=== PATIENT | female | born 1955 | race Caucasian/White ===

== ENCOUNTER 2019-04-29 14:14 | Outpatient (CLI) | payer OTHER, SELFPAY ==
--- NOTE | ~2019-04-29 | MM_ITS ---
EXAMINATION: MM screening joy BI w monik HISTORY: Screening mammogram TECHNIQUE: Craniocaudal and mediolateral oblique 3-D tomosynthesis images were obtained and synthetic 2-D images were generated. CAD analysis was submitted and interpreted. COMPARISON: No prior mammogram is available for comparison at this institution. BREAST PARENCHYMAL COMPOSITION: There are scattered areas of fibroglandular density. FINDINGS: RIGHT BREAST: A mass is present in the posterior third of the upper outer quadrant of the breast 9 cm from the nipple (CC slice: 30/65, MLO slice: /71). LEFT BREAST: There is no evidence of suspicious mass, calcification, or architectural distortion to s uggest malignancy. IMPRESSION: 1. Right breast mass. 2. Additional mammographic views and possible breast ultrasound are recommended. BI-RADS Category 0: Incomplete: Needs additional imaging evaluation. Reviewed, dictated and finalized at location A. 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 Right breast mass. 2. Additional mammographic views and possible breast ultrasound are recommended . BI-RADS Category 0: Incomplete: Needs additional imaging evaluation.
== END 2019-04-29 14:15 | disposition home or self-care (01) ==
PROVIDERS: PCP Physician Assistant; Visit Provider Physician Assistant
DX: Z12.31 Encounter for screening mammogram for malignant neoplasm of breast (principal); R92.8 Other abnormal and inconclusive findings on diagnostic imaging of breast
CPT/HCPCS: 77063; 77067

== ENCOUNTER 2019-06-09 12:29 | Outpatient (CLI) | payer OTHER, SELFPAY ==
--- NOTE | ~2019-06-09 | MMUS_ITS ---
EXAMINATION: MM diagnostic mammo unilat RT, US breast RT limited HISTORY: Follow-up right breast mass TECHNIQUE: Additional 3-D tomosynthesis images of the right breast were performed and synthetic 2-D i mages were generated. CAD analysis was submitted and interpreted. High resolution right breast ultras ound was performed. COMPARISON: 04/29/2019 FINDINGS: MAMMOGRAPHIC FINDINGS: Breast composed of scattered areas of fibroglandular density. There is a spiculated mass in the upper outer quadrant of the right breast, middle third with associated calcifications. This is partially o bscured by fibroglandular tissue. ULTRASOUND: Right breast ultrasound: At 10:00, 3 cm from the nipple, there is an irregular shaped hypoechoic mass with posterior shadowing measuring 10 x 8 x 6 mm. No significant internal vascularity identified. IMPRESSION: 1. Spiculated right breast mass, upper outer quadrant at 10:00 position by ultrasound, 3 cm from the nipple. Ultrasound-guided right breast biopsy recommended. 2. BI-RADS category 5: Highly suspicious abnormality. Reviewed, dictated and finalized at location A. IMPRESSION: 1. Spiculated right breast mass, upper outer quadrant at 10:00 position by ultr asound, 3 cm from the nipple. Ultrasound-guided right breast biopsy recommended . 2. BI-RADS category 5: Highly suspicious abnormality.
== END 2019-06-09 12:30 | disposition home or self-care (01) ==
LOC: ANHIMG 12:32
PROVIDERS: PCP Physician Assistant; Visit Provider Physician Assistant
DX: Z12.31 Encounter for screening mammogram for malignant neoplasm of breast (principal); R92.8 Other abnormal and inconclusive findings on diagnostic imaging of breast
CPT/HCPCS: 76642; 77065

== ENCOUNTER 2019-06-30 09:02 | Outpatient (CLI) | payer OTHER, SELFPAY ==
--- NOTE | ~2019-06-30 | MM_ITS ---
MM post biopsy invasive RT DATE: 06/30/2019 10:24 INDICATION: Ultrasound-guided biopsy of 10:00 right breast mass TECHNIQUE: Digital ML and cc views of right breast following ultrasound-guided biopsy of 10:00 breast mass COMPARISON: 06/30/2019 ultrasound guided right breast biopsy FINDINGS: A biopsy marker is present posteriorly in the upper outer quadrant of the right breast in a n area of abnormal density and architectural distortion. There is some expected associated mild subcu taneous emphysema. IMPRESSION: Ultrasound-guided biopsy of 10:00 right breast mass Reviewed, dictated and finalized at Location A. Reviewed, dictated and finalized at location A.
--- NOTE | ~2019-06-30 | US_ITS ---
EXAMINATION: US GUIDED NEEDLE BIOPSY DATE: 06/30/2019 11:26 CDT INDICATION: 10:00 right breast mass TECHNIQUE AND FINDINGS: The risks and potential benefits of the procedure were discussed with the patient, and written inform ed consent was obtained. Timeout procedure was performed. After sterile preparation of the right carol st, 1% lidocaine was utilized for local anesthesia. A 14G spring-loaded biopsy gun needle was advanced to the edge of the region of interest from a later al approach utilizing sonographic guidance. A total of 4 tissue core samples were obtained through t he lesion. An Inrad tissue marker clip was then placed at the biopsy site. Hemostasis was achieved. A sterile bandage was applied. The patient tolerated procedure well and there was no evidence of immediate complication. The patien t was given verbal instructions prior to departing from the department. A two view mammogram was perf ormed to document tissue marker clip placement. The tissue samples were submitted to surgical patholo gy for histologic analysis. IMPRESSION: 1. Successful ultrasound guided biopsy of right 10:00 breast mass with biopsy marker placement. Plea se refer to pathology report for histologic analysis. Reviewed, dictated and finalized at Location A. Reviewed, dictated and finalized at location A. IMPRESSION: 1. Successful ultrasound guided biopsy of right 10:00 breast mass with biopsy marker placement. Please refer to pathology report for histologic analysis.
== END 2019-06-30 09:03 | disposition home or self-care (01) ==
PROVIDERS: PCP Physician Assistant; Visit Provider Surgery
DX: R92.8 Other abnormal and inconclusive findings on diagnostic imaging of breast (principal); C50.911 Malignant neoplasm of unspecified site of right female breast
CPT/HCPCS: 19083; 88305; 88342; A4648

== ENCOUNTER 2019-08-04 14:02 | Outpatient (CLI) | payer OTHER, SELFPAY ==
--- NOTE | 2019-08-04 14:05 | ECG_ITS ---
Measurements Intervals [place] Rate: 63 P: 56 MA: 150 QRS: 13 QRSD: 98 T: 14 QT: 417 QTc: 429 Interpretive Statements SINUS RHYTHM BORDERLINE T WAVE ABNORMALITY- INFERIOR LEADS BASELINE ARTIFACT- V6 BORDERLINE ECG Electronically Signed On 08-04-2019 14:29:54 CDT by Eloy Osei D.O.
[2019-08-04 14:49] LABS: Blood Urea Nitrogen 20 mg/dL (7-17); Calcium 8.9 mg/dL (8.4-10.2); Carbon Dioxide 29 mmol/L (22-30); Chloride 106 mmol/L (98-107); Estimated Glomerular Filt Rate > 60; Glucose 117 mg/dL (65-105); Potassium 4.1 mmol/L (3.4-5.0); Sodium 141 mmol/L (137-145)
== END 2019-08-04 14:03 | disposition home or self-care (01) ==
LOC: ANHSURGERY 14:05
PROVIDERS: Anesthesiology; PCP Physician Assistant; Visit Provider Surgery
DX: Z01.818 Encounter for other preprocedural examination (principal); I10 Essential (primary) hypertension; E78.5 Hyperlipidemia, unspecified; E11.9 Type 2 diabetes mellitus without complications
CPT/HCPCS: 36415; 80048; 93005

== ENCOUNTER 2019-08-05 05:46 | Outpatient (CLI) | payer OTHER, SELFPAY ==
[2019-08-05 16:38] LABS: SARS-CoV-2 RNA PCR Negative
== END 2019-08-05 05:47 | disposition home or self-care (01) ==
LOC: ANHCOVIDDT 05:47
PROVIDERS: PCP Physician Assistant; Visit Provider Surgery
DX: Z01.818 Encounter for other preprocedural examination (principal); Z11.59 Encounter for screening for other viral diseases
CPT/HCPCS: 87635; U0003

== ENCOUNTER 2019-08-07 00:35 | Day surgery (SDC) | payer OTHER, SELFPAY ==
[2019-08-04 09:33] VITALS: BMI 31.1
[2019-08-07] VITALS (10 sets, daily range): BP systolic 105–149; BP diastolic 58–86; PULSE 57–75; RESP 11–20; TEMP 36.4; O2SAT 92–98
--- NOTE | ~2019-08-07 | MM_ITS ---
MM surgical specimen RT DATE: 08/07/2019 10:38 INDICATION: Surgical excision of right breast mass] biopsy marker TECHNIQUE: Single noncompression digital mammographic exposure of surgical soft tissue specimen COMPARISON: 08/07/2019 mammographic localization images of right breast FINDINGS: The biopsy marker and adjacent soft tissue mass are present within the surgical soft tissue specimen. IMPRESSION: Successful surgical excision of mass and biopsy marker Reviewed, dictated and finalized at Location A. Reviewed, dictated and finalized at location A.
--- NOTE | ~2019-08-07 | NM_ITS ---
NM sentinel node inject only DATE: 08/07/2019 09:23 INDICATION: Preoperative injections prior to breast surgery and surgical sentinel node localization TECHNIQUE: The purpose of the procedure, technique and potential locations were discussed with the heather sadler. The patient verbalized understanding and gave consent. 4 equally divided doses totaling cumulative 1.067 mCi 99M technetium lymphoseek were injected at 12:0 0, 3:00, 6:00 and 9:00 subareolar locations subcutaneously. The patient tolerated the procedure well, without complaint or apparent complication. IMPRESSION: Preoperative subcutaneous 1.067 mCi 99M technetium lymphoseek periareolar injections for sentinel localization operatively Reviewed, dictated and finalized at Location A. Reviewed, dictated and finalized at location A. IMPRESSION: Preoperative subcutaneous 1.067 mCi 99M technetium lymphoseek aneta areolar injections for sentinel localization operatively
--- NOTE | ~2019-08-07 | MM_ITS ---
MM needle loc RT DATE: 08/07/2019 08:25 INDICATION: Preoperative wire localization of right breast mass/biopsy marker TECHNIQUE: The purpose of the procedure, technique and potential complications were discussed with e patient. The patient verbalized understanding and gave consent. Timeout procedure confirmed proper patient, procedure and breast. The right breast was placed in compression in craniocaudal position with biopsy grid apparatus over t he upper breast. Using alphabet and numerical coordinates on the biopsy grid to localize the posterio r upper outer quadrant mass and biopsy marker, an appropriate site was identified for placement of [facility] needle. The skin was prepared with sterile Betadine solution. 1% Xylocaine local anesthetic was adm inistered to the skin. A 5 cm [place] Mammalok needle was introduced into the breast. Craniocaudal and mediolateral exposures confirmed proper position and depth of the needle. The wire was advanced throu gh the needle tip. Final craniocaudal and lateral images were obtained to confirm proper placement of the wire. The patient was very cooperative and tolerated the procedure well, without any apparent complication. IMPRESSION: Preoperative mammographically guided wire localization of right upper outer quadrant [address] mass Reviewed, dictated and finalized at Location A. Reviewed, dictated and finalized at location A. IMPRESSION: Preoperative mammographically guided wire localization of right upp er outer quadrant breast mass
[2019-08-07 07:07] LABS: Glucose Point of Care 107 (65-105)
--- NOTE | 2019-08-07 07:17 | PM.SD ---
Same Day Admit/Disch: HPI History of Present Illness Chief complaint: Right Breast Lobular Ca Narrative: Suzy Fontanez is a 63 year old female who presented with abnormal breast imaging. She had a spiculated mass in the upper-outer quadrant of the right breast. She underwent image guided biopsy which showed well-differentiated invasive lobular carcinoma. After discussion, she is taken to surgery now for wire localization followed by right breast lumpectomy and right axillary sentinel lymph node biopsy. [facility] Past Medical History Medical History Diabetes mellitus Hyperlipidemia Hypertension Surgical History Surgical History History of arthroplasty of finger of right hand History of X 2 Family History Family History Unknown Diabetes mellitus Heart disease Cancer Social History Social History Smoking status: Never smoker Alcohol intake: former Same Day Admit/Disch: Med Pre-admit Medications Home Medications Medication Instructions Recorded Confirmed Type losartan 50 mg tablet 50 mg PO DAILY 06/16/19 08/07/19 History lovastatin 20 mg tablet 20 mg PO DAILY 06/16/19 08/07/19 History metformin 500 mg tablet 500 mg PO BID 06/16/19 08/07/19 History cyanocobalamin (vitamin B-12) 1,000 mcg PO DAILY 08/04/19 08/07/19 History [Vitamin B-12] hydrocodone-acetaminophen 1 - 2 tablet PO Q6H PRN #7 tablet 08/07/19 Rx ketorolac 10 mg PO Q6H 4 Days #16 tablet 08/07/19 Rx Exam Const: General: comfortable, no acute distress, alert and awake HENMT: Head: normocephalic and atraumatic Mouth: Yes Normal oral and palatal mucosa present Eyes: Conjunctivae: conjunctivae normal Pupils: Equal, round and reactive pupils present EOM: EOMs intact bilaterally Neck: Neck: normal visual inspection, no lymphadenopathy and nontender Chest: Breast/axilla inspection: normal inspection of the breasts and normal inspection of the axillae Breast/axilla palpation: normal palpation of the breasts and normal palpation of the axillae Resp: Effort & Inspection: normal respiratory effort Auscultation: clear to auscultation bilaterally Cardio: Rate: regular rate Rhythm: regular rhythm Heart sounds: no gallops, no murmurs and no rubs GI: Inspection: non-distended GI Palp: Yes Soft to palpation, No Tenderness to palpation present (GI), No Hepatomegaly present and No Splenomegaly present Skin: Lesions: no lesions Rashes: no rashes Neuro: General: no focal motor deficits and CN's II-XI intact bilaterally Cranial nerves: Yes Equal, round and reactive pupils present, Yes Bilaterally intact EOM present, Yes facial symmetry and Yes Midline tongue present Speech: normal speech Motor exam (neuro): 5/5 motor strength present throughout and Motor abnormalities not present Extrem: General: no clubbing, cyanosis or edema and edema Psych: Affect: normal affect Thought process: Normal thought process present Insight: Good insight present (Psych) DS: Data Data Completed and Pending Labs on day of discharge: Labs from last 24 hours 08/07/19 07:02 POC Capillary Glucose 107 DS: Summary Time Spent with Patient Time attestation: Total time spent providing and/or coordinating discharge services: DS: Diagnosis Admitting Diagnosis Admitting Diagnosis: Hyperlipidemia, unspecified Discharge Diagnosis (1) Invasive lobular carcinoma of breast in female: Code(s): C50.919 - Malignant neoplasm of unspecified site of unspecified female breast Status: Chronic Assessment and Plan: After discussion, the patient is taken to surgery now for wire localization of the right breast malignancy. Will proceed with right breast lumpectomy and right axillary sentinel lymph node biopsy.
[2019-08-07] MEDS: LACTATED RINGERS 1,000 ML 30 ML IV CONT ×2 (08:16→11:06)
--- NOTE | 2019-08-07 08:17 | SUR.PREOP ---
0735-PT TAKEN PER W/C TO MAMMOGRAPHY.
--- NOTE | 2019-08-07 08:49 | SUR.PREOP ---
0835-RETURNED FROM MAMMOGRAPHY AND NUCLEAR MEDICINE.
--- NOTE | 2019-08-07 09:06 | P.PNAN_ITS ---
Anes - Initial Pre Proc Eval Procedure: Operation Date: 08/07/19 09:30 Proposed Procedures p Right Breast Ultrasound And/Or Mammogram Guided Needle Localization, Right Breast Lumpectomy - Frankie Gracia MD s Right Axillary [place] Lymph Node Biopsy - Frankie Gracia MD Date/Time: 08/07/19 09:06 Surgeon: Frankie Gracia MD Pre Op Diagnosis: Right Breast Lobular Ca Patient Data Age: 63 Gender: F Height: 5 ft Weight: 70 kg Last Vital Signs Temp 36.4 C L 08/07/19 06:58 Pulse 63 08/07/19 06:58 Resp 20 08/07/19 06:58 BP 139/86 08/07/19 06:58 Pulse Ox 98 08/07/19 06:58 Allergies Allergy/AdvReac Type Severity Reaction Status Date / Time No Known Allergies Allergy Verified 08/07/19 07:57 Home Medications Medication Instructions Recorded Confirmed Type losartan 50 mg tablet 50 mg PO DAILY 06/16/19 08/07/19 History lovastatin 20 mg tablet 20 mg PO DAILY 06/16/19 08/07/19 History metformin 500 mg tablet 500 mg PO BID 06/16/19 08/07/19 History cyanocobalamin (vitamin B-12) 1,000 mcg PO DAILY 08/04/19 08/07/19 History [Vitamin B-12] hydrocodone-acetaminophen 1 - 2 tablet PO Q6H PRN #7 tablet 08/07/19 Rx ketorolac 10 mg PO Q6H 4 Days #16 tablet 08/07/19 Rx Laboratory Tests 08/07/19 07:02 POC Capillary Glucose 107 mg/dl mg/dl (65-105) Patient hx anesthesia problems: other (slow to awaken) Family hx anesthesia problems: none PMFSH Past Medical History Medical History Diabetes mellitus Hyperlipidemia Hypertension Surgical History Surgical History History of arthroplasty of finger of right hand History of X 2 Family History Family History Unknown Diabetes mellitus Heart disease Cancer Social History Social History Smoking status: Never smoker Alcohol intake: former Anes - Eval Final PreProcedure Day of Procedure 08/07/19 09:06 Patient weight: obese Heart: regular rate and rhythm Lungs: clear to auscultation Airway: Mallampati scale class II Neurological: alert and oriented Last oral intake: >/= 8 hours ASA classification: III Emergent: no Anesthetic plan: proceed Anesthesia type and monitoring: general LMA and standard monitoring Informed Consent: The patient's anesthetic plan and its attendant risks and benefits were discussed with the patient/family/POA. Questions were solicited and answers provided to the satisfaction of the patient/family/POA.
[2019-08-07] MEDS: ceFAZolin 2 GM/D5W 50 ML 2 GM/50 ML BAG IVPB (09:16)
[2019-08-07] MEDS: BUPIVACAINE/EPINEPHRINE 0.5% 30 ML VIAL 20 ML INFILTRATE (10:09)
[2019-08-07] MEDS: ISOSULFAN BLUE 1% INJ 5 ML VIAL SUB-Q (10:15)
--- NOTE | 2019-08-07 11:12 | PM.PROC ---
Procedure Note - Detailed Date of procedure: 08/07/19 Pre-op diagnosis: Right Breast Lobular Ca Invasive lobular carcinoma upper outer quadrant right breast Post-op diagnosis: same Procedure performed: Wire localization, right breast lumpectomy, right axillary sentinel lymph node biopsy Description of procedure: Patient was taken to x-ray preoperatively. Wire localization of the upper outer quadrant right breast cancer was performed. Also radioisotope injection under the right nipple was performed. She was taken back to the preoperative area. I reviewed her films. She was then taken to the operating room and induced into general anesthesia. The right breast as well as the right axilla was prepped and draped. The right arm was also prepped and draped so that it was sterile and mobile in the operating field. I injected Isosulfan Blue dye under the right nipple. Gentle breast massage was carried out for about 2 minutes. The navigator was used and an area of high isotope emission in the right axilla that would be compatible with location of sentinel nodes was marked on the skin. A hairline axillary incision was also marked on the skin. Incision was made and dissection was carried down through the subcutaneous tissue. Once we dissected into the axillary fat, the navigator was again used and an area of high isotope emission identified. Careful dissection with the cautery as well as blunt dissection was carried out. Clips were used for lymphatic stasis and vascular stasis. We eventually came to a dye stained lymph node in the axilla. It had a very high isotope emission and also had some lymphatics that were dye stained leading to this node. The node was carefully dissected and removed. It was again checked with the navigator and did have very high isotope emission. It was sent to pathology labeled right axillary sentinel lymph node 1. Then using palpation, exploration, and the navigator, I searched for other right axillary sentinel nodes. No suitable candidates were noted. Wound was then made hemostatic. It was closed in layers with 3 0 Monocryl subcutaneous and subcuticular interrupted suture. The skin was closed with running 4 0 Monocryl subcuticular skin closure. This area was quarantined with towels and we turned our attention to the right breast. The proposed incision was drawn on the skin. Local anesthetic was infiltrated into the skin and the deeper breast tissues. Incision was made and dissection was carried down through about a cm and a half of breast tissue. I then exposed the wire and pulled the wire through the skin and out the wound. From there, dissection was carried down to and around the area where the tumor was judged to reside. I really could not palpate the tumor. Trying to stay well away from the tumor itself I dissected around it attempting to take a margin of normal breast tissue in all dimensions. Eventually I dissected around the tumor and freed the end of the wire so that the specimen could be removed. The breast specimen was kept in its orientation and I used different color suture to lary the various margins for the pathologist. These were labeled appropriately. The specimen with the wire was placed on a grid and sent to mammography. Mammogram of the specimen did confirm the lesion to be present. I then exposed all 6 of the wound edges and excised additional margins for each. Each of these margin re-excision specimens was labeled appropriately and had a suture placed on its inner aspect. These were each sent to the pathologist. The wound was then made meticulously hemostatic with the cautery. The wound was closed in layers with interrupted 3 0 Monocryl suture. A running 4 0 Monocryl subcuticular skin suture was placed. Both the breast and the axillary wounds were dressed with Exofin surgical adhesive. The patient was awakened and taken to recovery in good condition. Sponge and needle counts were correct x2. Anesthesia: GETA
[2019-08-07 12:31] LABS: Glucose Point of Care 157 (65-105)
== END 2019-08-07 13:22 | disposition home or self-care (01) ==
PROVIDERS: PCP Physician Assistant; Visit Provider Surgery
PROC: (CPT 19301; principal; 2019-08-07 09:30)
PROC: (CPT 19301; 2019-08-07 09:30)
DX: C50.411 Malignant neoplasm of upper-outer quadrant of right female breast (principal); Z17.0 Estrogen receptor positive status [ER+]
CPT/HCPCS: 19301; 38525; 19281; 38792; 76098; 88307; 88342; A9270; A9520; C1713; C1769; J0131; J0690; J1100; J1170; J2250; J2405; J2704; J3010; J7030; J7120

== ENCOUNTER 2019-11-06 09:54 | Outpatient (CLI) | payer OTHER, SELFPAY ==
[2019-11-06 10:12] LABS: Basophils Percent Auto 0.6 % (0.2-1.2); Eosinophils Absolute Auto 0.3 K/mm3 (0-0.3); Eosinophils Percent Auto 6.4 % (0-4.4); Hematocrit 43.2 % (37.0-47.0); Hemoglobin 14.3 g/dL (12.0-15.0); Immature Granulocyte Absolute 0.01 K/mm3 (0.00-0.031); Immature Granulocyte Percent A 0.2 % (0-0.5); Lymphocytes Percent Auto 18.9 % (18.3-44.2); Mean Corpuscular HGB Conc 33.1 g/dl (32-36); Mean Corpuscular Hemoglobin 28.9 pg (26-34); Mean Corpuscular Volume 87.3 fl (80-100); Monocytes Absolute Auto 0.4 K/mm3 (0.1-0.6); Monocytes Percent Auto 8.3 % (2.6-8.5); Neutrophils Absolute Auto 3.5 K/mm3 (1.3-6.7); Neutrophils Percent Auto 65.6 % (45.5-73.1); Platelet Count Result 238 k/mm3 (150-375); Red Blood Count 4.95 M/mm3 (4.2-5.4); White Blood Count 5.3 K/mm3 (4.5-10.0)
[2019-11-06 10:15] LABS: Blood Urea Nitrogen 16 mg/dL (8-26); Carbon Dioxide 23 mmol/L (22-30); Chloride 104 mmol/L (98-109); Estimated Glomerular Filt Rate > 60; Glucose 155 mg/dL (70-105); Potassium 3.7 mmol/L (3.5-4.9); Sodium 143 mmol/L (138-146)
[2019-11-06 13:40] LABS: Alanine Aminotransferase 21 U/L (4-35); Albumin Level 3.9 g/dL (3.5-5.1); Alkaline Phosphatase 76 U/L (38-126); Anion Gap 9 mmol/L (8-16); Aspartate Amino Transferase 18 U/L (14-36); Bilirubin,Total 0.1 mg/dL (0.2-1.3); Blood Urea Nitrogen 17 mg/dL (7-17); Calcium 8.8 mg/dL (8.4-10.2); Carbon Dioxide 24 mmol/L (22-30); Chloride 106 mmol/L (98-107); Estimated Glomerular Filt Rate > 60; Glucose 153 mg/dL (65-105); Sodium 139 mmol/L (137-145)
== END 2019-11-06 09:55 | disposition home or self-care (01) ==
LOC: ANHLAB 09:56
PROVIDERS: PCP Physician Assistant; Visit Provider Internal Medicine Hematology & Oncology
DX: C50.411 Malignant neoplasm of upper-outer quadrant of right female breast (principal); Z17.0 Estrogen receptor positive status [ER+]
CPT/HCPCS: 36415; 80048; 80053; 85025

== ENCOUNTER 2020-01-26 12:10 | Outpatient (CLI) | payer OTHER, SELFPAY ==
[2020-01-26 12:42] LABS: Basophils Percent Auto 0.5 % (0.2-1.2); Eosinophils Absolute Auto 0.4 K/mm3 (0-0.3); Eosinophils Percent Auto 5.6 % (0-4.4); Hematocrit 44.5 % (37.0-47.0); Hemoglobin 14.3 g/dL (12.0-15.0); Immature Granulocyte Absolute 0.02 K/mm3 (0.00-0.031); Immature Granulocyte Percent A 0.3 % (0-0.5); Lymphocytes Absolute Auto 1.48 K/mm3 (0.9-3.2); Lymphocytes Percent Auto 23.7 % (18.3-44.2); Mean Corpuscular HGB Conc 32.1 g/dl (32-36); Mean Corpuscular Hemoglobin 28.3 pg (26-34); Mean Corpuscular Volume 88.1 fl (80-100); Mean Platelet Volume 10.1 fl (7.4-10.4); Monocytes Absolute Auto 0.7 K/mm3 (0.1-0.6); Monocytes Percent Auto 11.7 % (2.6-8.5); Neutrophils Absolute Auto 3.6 K/mm3 (1.3-6.7); Neutrophils Percent Auto 58.2 % (45.5-73.1); Platelet Count Result 252 k/mm3 (150-375); Red Blood Count 5.05 M/mm3 (4.2-5.4); Red Cell Distribution Width 12.7 % (11.5-14.5); White Blood Count 6.3 K/mm3 (4.5-10.0)
[2020-01-26 16:26] LABS: Alanine Aminotransferase 20 U/L (4-35); Alkaline Phosphatase 87 U/L (38-126); Anion Gap 7 mmol/L (8-16); Aspartate Amino Transferase 17 U/L (14-36); Bilirubin,Total 0.3 mg/dL (0.2-1.3); Blood Urea Nitrogen 21 mg/dL (7-17); Calcium 9.6 mg/dL (8.4-10.2); Carbon Dioxide 29 mmol/L (22-30); Chloride 103 mmol/L (98-107); Estimated Glomerular Filt Rate > 60; Glucose 101 mg/dL (65-105); Potassium 4.7 mmol/L (3.4-5.0); Sodium 139 mmol/L (137-145)
[2020-01-29 14:21] LABS: CA 27.29 31 U/mL (<38)
== END 2020-01-26 12:11 | disposition home or self-care (01) ==
PROVIDERS: PCP Physician Assistant; Visit Provider Internal Medicine Hematology & Oncology
DX: C50.411 Malignant neoplasm of upper-outer quadrant of right female breast (principal); Z17.0 Estrogen receptor positive status [ER+]
CPT/HCPCS: 36415; 80053; 85025; 86300

== ENCOUNTER 2020-05-06 12:00 | Outpatient (CLI) | payer OTHER, SELFPAY ==
--- NOTE | ~2020-05-06 | DEXA_ITS ---
Bone Density Report Name: Suzy Fontanez Age: 64 Sex: Female Ethnicity: White Date of : 1955 Indication: postmenopausal; cancer; Referring Provider: Nik Castro Study: Bone densitometry was performed. Exam Date: May 06, 2020 Accession number: [id number] Bone Density: Region BMD T-score Z-score Classification AP Spine (L1, L2, L3) 0.927 -0.8 0.8 Normal Femoral Neck (Left) 0.642 -1.9 -0.4 Osteopenia Total Hip (Left) 0.774 -1.4 -0.2 Osteopenia Total Hip Bilateral Avg 0.769 -1.5 -0.3 Osteopenia Femoral Neck (Right) 0.654 -1.8 -0.3 Osteopenia Total Hip (Right) 0.763 -1.5 -0.3 Osteopenia World Health Organization criteria for BMD impression classify patients as: Normal (T-score at or above -1.0), Osteopenia (T-score between -1.0 and -2.5), or Osteoporosis (T-score at or below -2.5). 10-year Fracture Risk(1): Major Osteoporotic Fracture 9.4% Hip Fracture 1.1% Reported Risk Factors: [place] (), Neck BMD=0.642, BMI=30.2 (1) FRAX(R) Version 3.08. Fracture probability calculated for an untreated patient. Fracture probability may be lower if the patient has received treatment. Clinical Information Provided by Patient: Has used the following medications: Calcium Has the following medical conditions: Cancer Patient maximum height was 60 Menopause Age: 52 No regular weight bearing exercise Drinks caffeinated beverages Onset of menses at age 11 Number of children 2 Impression: The patient has low bone mass, based on the Left Femoral Neck T-score. The patient has an estimated ten-year risk of hip fracture of 1.1% and an estimated ten-year risk of major fracture of 9.4%, based on the WHO FRAX algorithm. Discussion: BONE DENSITY IS LOW AT ONE OR MORE SKELETAL SITES. This patient's lowest T-score is low at one or more skeletal sites. It meets the World Health Organization's (WHO) criteria for ?low bone mass? (T-score between -1.0 and -2.5). The patient's 10-year risk of fracture as calculated by FRAX is less than the threshold where pharmacological therapy is recommended by the National Osteoporosis Foundation (NOF). However, all treatment decisions require clinical judgment and consideration of individual patient factors, including patient preferences, comorbidities, previous drug use, risk factors not captured in the FRAX model (e.g., frailty, falls, vitamin D deficiency, increased bone turnover, interval significant decline in bone density) and possible under or overestimation of fracture risk by FRAX. The patient should follow a healthful lifestyle (good nutrition with adequate calcium and vitamin D, and appropriate weight-bearing exercise). Follow-Up: Consider repeating this study in 2 to 3 years to reassess this patient's status, or sooner if there is some new clinical indication. Repo
--- NOTE | ~2020-05-06 | MM_ITS ---
EXAMINATION: MM diagnostic joy BI w monik HISTORY: Status post right partial mastectomy for breast cancer one year ago TECHNIQUE: ML, MLO and craniocaudal 3-D tomosynthesis images of both breasts were performed and synth etic 2-D images were generated. CAD analysis was submitted and interpreted. COMPARISON: 06/09/2019diagnostic right mammogram and limited right breast ultrasound 04/29/2019 bilateral digital screening mammogram BREAST PARENCHYMAL COMPOSITION: The breasts are heterogeneously dense, which may obscure small masses . FINDINGS: There is postsurgical scarring and retraction at the upper outer quadrant of the right carol st as well as some asymmetric right-sided skin thickening, likely related to history of radiotherapy. No suspicious mass or architectural distortion is evident otherwise. No malignant calcification. IMPRESSION: 1. Status post right partial mastectomy and radiotherapy for breast cancer; no evidence of breast mal ignancy is evident on the current examination 2. Routine mammographic screening and any additional imaging as appropriate in this patient with hist ory of breast cancer is recommended. BI-RADS Category 2: Benign finding(s). Reviewed, dictated and finalized at location A. PRESS OPERATOR IMPRESSION: 1. Status post right partial mastectomy and radiotherapy for breast cancer; no evidence of breast malignancy is evident on the current examination 2. Routine mammographic screening and any additional imaging as appropriate in this patient with history of breast cancer is recommended. BI-RADS Category 2: Benign finding(s).
== END 2020-05-06 12:01 | disposition home or self-care (01) ==
PROVIDERS: PCP Physician Assistant; Visit Provider Internal Medicine Hematology & Oncology
DX: C50.411 Malignant neoplasm of upper-outer quadrant of right female breast (principal); M85.851 Other specified disorders of bone density and structure, right thigh; M85.852 Other specified disorders of bone density and structure, left thigh
CPT/HCPCS: 77062; 77066; 77080; G0279

== ENCOUNTER 2020-05-13 10:23 | Outpatient (CLI) | payer OTHER, SELFPAY ==
[2020-05-13 10:40] LABS: Basophils Percent Auto 0.4 % (0.2-1.2); Eosinophils Absolute Auto 0.4 K/mm3 (0-0.3); Eosinophils Percent Auto 5.2 % (0-4.4); Hematocrit 44.5 % (37.0-47.0); Hemoglobin 14.7 g/dL (12.0-15.0); Immature Granulocyte Absolute 0.02 K/mm3 (0.00-0.031); Immature Granulocyte Percent A 0.3 % (0-0.5); Lymphocytes Absolute Auto 1.38 K/mm3 (0.9-3.2); Lymphocytes Percent Auto 20.6 % (18.3-44.2); Mean Corpuscular Hemoglobin 28.5 pg (26-34); Mean Corpuscular Volume 86.2 fl (80-100); Mean Platelet Volume 10.1 fl (7.4-10.4); Monocytes Absolute Auto 0.6 K/mm3 (0.1-0.6); Monocytes Percent Auto 8.7 % (2.6-8.5); Neutrophils Absolute Auto 4.3 K/mm3 (1.3-6.7); Neutrophils Percent Auto 64.8 % (45.5-73.1); Platelet Count Result 243 k/mm3 (150-375); Red Blood Count 5.16 M/mm3 (4.2-5.4); Red Cell Distribution Width 12.7 % (11.5-14.5); White Blood Count 6.7 K/mm3 (4.5-10.0)
[2020-05-13 10:48] LABS: Blood Urea Nitrogen 19 mg/dL (8-26); Carbon Dioxide 27 mmol/L (22-30); Chloride 101 mmol/L (98-109); Estimated Glomerular Filt Rate > 60; Glucose 153 mg/dL (70-105); Potassium 4.1 mmol/L (3.5-4.9); Sodium 140 mmol/L (138-146)
[2020-05-13 13:36] LABS: Alanine Aminotransferase 29 U/L (4-35); Albumin Level 3.8 g/dL (3.5-5.1); Alkaline Phosphatase 71 U/L (38-126); Anion Gap 9 mmol/L (8-16); Aspartate Amino Transferase 22 U/L (14-36); Bilirubin,Total 0.3 mg/dL (0.2-1.3); Blood Urea Nitrogen 19 mg/dL (7-17); Carbon Dioxide 29 mmol/L (22-30); Chloride 100 mmol/L (98-107); Estimated Glomerular Filt Rate > 60; Glucose 151 mg/dL (65-105); Potassium 4.6 mmol/L (3.4-5.0); Sodium 138 mmol/L (137-145)
[2020-05-15 16:07] LABS: CA 15-3 20 U/mL (<32)
== END 2020-05-13 10:24 | disposition home or self-care (01) ==
LOC: ANHLAB 10:24
PROVIDERS: PCP Physician Assistant; Visit Provider Internal Medicine Hematology & Oncology
DX: C50.411 Malignant neoplasm of upper-outer quadrant of right female breast (principal); Z17.0 Estrogen receptor positive status [ER+]
CPT/HCPCS: 36415; 80048; 80053; 85025; 86300

== ENCOUNTER 2020-08-11 12:54 | Outpatient (CLI) | payer OTHER, SELFPAY ==
[2020-08-11 13:22] LABS: Basophils Percent Auto 0.7 % (0.2-1.2); Eosinophils Absolute Auto 0.3 K/mm3 (0-0.3); Eosinophils Percent Auto 4.6 % (0-4.4); Hematocrit 42.9 % (37.0-47.0); Hemoglobin 14.4 g/dL (12.0-15.0); Immature Granulocyte Absolute 0.01 K/mm3 (0.00-0.031); Immature Granulocyte Percent A 0.2 % (0-0.5); Lymphocytes Absolute Auto 1.42 K/mm3 (0.9-3.2); Lymphocytes Percent Auto 23.1 % (18.3-44.2); Mean Corpuscular HGB Conc 33.6 g/dl (32-36); Mean Corpuscular Hemoglobin 28.9 pg (26-34); Mean Platelet Volume 10.3 fl (7.4-10.4); Monocytes Absolute Auto 0.7 K/mm3 (0.1-0.6); Monocytes Percent Auto 11.1 % (2.6-8.5); Neutrophils Absolute Auto 3.7 K/mm3 (1.3-6.7); Neutrophils Percent Auto 60.3 % (45.5-73.1); Platelet Count Result 230 k/mm3 (150-375); Red Blood Count 4.99 M/mm3 (4.2-5.4); Red Cell Distribution Width 13.1 % (11.5-14.5); White Blood Count 6.1 K/mm3 (4.5-10.0)
[2020-08-11 13:29] LABS: Blood Urea Nitrogen 21 mg/dL (8-26); Carbon Dioxide 28 mmol/L (22-30); Chloride 101 mmol/L (98-109); Estimated Glomerular Filt Rate 56; Glucose 89 mg/dL (70-105); Potassium 4.2 mmol/L (3.5-4.9); Sodium 139 mmol/L (138-146)
[2020-08-11 17:24] LABS: Alanine Aminotransferase 25 U/L (4-35); Albumin Level 4.1 g/dL (3.5-5.1); Alkaline Phosphatase 57 U/L (38-126); Anion Gap 9 mmol/L (8-16); Aspartate Amino Transferase 20 U/L (14-36); Bilirubin,Total 0.4 mg/dL (0.2-1.3); Calcium 9.5 mg/dL (8.4-10.2); Carbon Dioxide 26 mmol/L (22-30); Chloride 104 mmol/L (98-107); Estimated Glomerular Filt Rate 56; Glucose 89 mg/dL (65-105); Potassium 4.2 mmol/L (3.4-5.0); Sodium 139 mmol/L (137-145)
[2020-08-11 17:40] LABS: Blood Urea Nitrogen 19 mg/dL (7-17)
[2020-08-14 07:16] LABS: CA 15-3 17 U/mL (<32)
== END 2020-08-11 12:55 | disposition home or self-care (01) ==
LOC: ANHLAB 12:56
PROVIDERS: Visit Provider Internal Medicine Hematology & Oncology
DX: C50.411 Malignant neoplasm of upper-outer quadrant of right female breast (principal); Z17.0 Estrogen receptor positive status [ER+]
CPT/HCPCS: 36415; 80048; 80053; 85025; 86300

== ENCOUNTER 2020-11-10 13:05 | Outpatient (CLI) | payer OTHER, SELFPAY ==
--- NOTE | ~2020-11-10 | MM_ITS ---
EXAMINATION: MM diagnostic joy RT w monik HISTORY: History of right breast cancer TECHNIQUE: Craniocaudal, mediolateral, and mediolateral oblique 3-D tomosynthesis images of the right breast were performed and synthetic 2-D images were generated. CAD analysis was submitted and interp reted. COMPARISON: 05/06/2020, 06/09/2019, 04/29/2019 BREAST PARENCHYMAL COMPOSITION: The breasts are heterogeneously dense, which may obscure small masses . FINDINGS: Lumpectomy changes are present in the posterior third of the upper outer quadrant of the br east. There is no evidence of suspicious mass, calcification, or architectural distortion to suggest malignancy. There has been no suspicious interval change. IMPRESSION: 1. No mammographic evidence of malignancy. 2. Recommend routine screening mammography. BI-RADS Category 2: Benign finding(s). Reviewed, dictated and finalized at location A.
== END 2020-11-10 13:06 | disposition home or self-care (01) ==
LOC: ANHIMG 13:11
PROVIDERS: Visit Provider Internal Medicine Hematology & Oncology
DX: C50.411 Malignant neoplasm of upper-outer quadrant of right female breast (principal); Z17.0 Estrogen receptor positive status [ER+]
CPT/HCPCS: 77061; 77065; G0279

== ENCOUNTER 2020-11-10 14:13 | Outpatient (CLI) | payer OTHER, SELFPAY ==
[2020-11-10 14:27] LABS: Basophils Percent Auto 0.5 % (0.2-1.2); Eosinophils Absolute Auto 0.2 K/mm3 (0-0.3); Eosinophils Percent Auto 3.5 % (0-4.4); Hematocrit 45.6 % (37.0-47.0); Hemoglobin 14.7 g/dL (12.0-15.0); Immature Granulocyte Absolute 0.02 K/mm3 (0.00-0.031); Immature Granulocyte Percent A 0.3 % (0-0.5); Lymphocytes Percent Auto 20.4 % (18.3-44.2); Mean Corpuscular HGB Conc 32.2 g/dl (32-36); Mean Corpuscular Hemoglobin 28.3 pg (26-34); Mean Corpuscular Volume 87.7 fl (80-100); Mean Platelet Volume 9.9 fl (7.4-10.4); Monocytes Absolute Auto 0.6 K/mm3 (0.1-0.6); Monocytes Percent Auto 8.6 % (2.6-8.5); Neutrophils Absolute Auto 4.3 K/mm3 (1.3-6.7); Neutrophils Percent Auto 66.7 % (45.5-73.1); Platelet Count Result 247 k/mm3 (150-375); Red Cell Distribution Width 12.9 % (11.5-14.5); White Blood Count 6.4 K/mm3 (4.5-10.0)
[2020-11-10 16:31] LABS: Alanine Aminotransferase 25 U/L (4-35); Albumin Level 4.2 g/dL (3.5-5.1); Alkaline Phosphatase 65 U/L (38-126); Anion Gap 6 mmol/L (8-16); Aspartate Amino Transferase 20 U/L (14-36); Bilirubin,Total 0.5 mg/dL (0.2-1.3); Blood Urea Nitrogen 20 mg/dL (7-17); Calcium 10.1 mg/dL (8.4-10.2); Carbon Dioxide 30 mmol/L (22-30); Chloride 103 mmol/L (98-107); Estimated Glomerular Filt Rate 56; Glucose 107 mg/dL (65-110); Potassium 4.4 mmol/L (3.4-5.0); Sodium 139 mmol/L (137-145)
[2020-11-13 08:14] LABS: CA 15-3 19 U/mL (<32)
== END 2020-11-10 14:14 | disposition home or self-care (01) ==
LOC: ANHLAB 14:15
PROVIDERS: Visit Provider Internal Medicine Hematology & Oncology
DX: C50.411 Malignant neoplasm of upper-outer quadrant of right female breast (principal); Z17.0 Estrogen receptor positive status [ER+]
CPT/HCPCS: 36415; 77061; 77065; 80053; 85025; 86300; G0279

== ENCOUNTER 2021-05-10 13:03 | Outpatient (CLI) | payer OTHER, SELFPAY ==
[2021-05-10 13:25] LABS: Basophils Percent Auto 0.5 % (0.2-1.2); Eosinophils Absolute Auto 0.6 K/mm3 (0-0.3); Eosinophils Percent Auto 9.8 % (0-4.4); Hematocrit 45.8 % (37.0-47.0); Hemoglobin 14.4 g/dL (12.0-15.0); Immature Granulocyte Absolute 0.01 K/mm3 (0.00-0.031); Immature Granulocyte Percent A 0.2 % (0-0.5); Lymphocytes Absolute Auto 1.45 K/mm3 (0.9-3.2); Lymphocytes Percent Auto 23.6 % (18.3-44.2); Mean Corpuscular HGB Conc 31.4 g/dl (32-36); Mean Corpuscular Hemoglobin 28.5 pg (26-34); Mean Corpuscular Volume 90.5 fl (80-100); Mean Platelet Volume 10.2 fl (7.4-10.4); Monocytes Absolute Auto 0.5 K/mm3 (0.1-0.6); Neutrophils Absolute Auto 3.6 K/mm3 (1.3-6.7); Neutrophils Percent Auto 57.9 % (45.5-73.1); Platelet Count Result 257 k/mm3 (150-375); Red Blood Count 5.06 M/mm3 (4.2-5.4); Red Cell Distribution Width 13.1 % (11.5-14.5); White Blood Count 6.1 K/mm3 (4.5-10.0)
[2021-05-10 13:29] LABS: Blood Urea Nitrogen 15 mg/dL (8-26); Carbon Dioxide 28 mmol/L (22-30); Chloride 102 mmol/L (98-109); Estimated Glomerular Filt Rate 56; Glucose 101 mg/dL (70-105); Potassium 4.1 mmol/L (3.5-4.9); Sodium 141 mmol/L (138-146)
[2021-05-10 16:11] LABS: Alanine Aminotransferase 18 U/L (4-35); Albumin Level 4.1 g/dL (3.5-5.1); Alkaline Phosphatase 74 U/L (38-126); Anion Gap 7 mmol/L (8-16); Aspartate Amino Transferase 19 U/L (14-36); Bilirubin,Total 0.5 mg/dL (0.2-1.3); Blood Urea Nitrogen 15 mg/dL (7-17); Calcium 9.5 mg/dL (8.4-10.2); Carbon Dioxide 27 mmol/L (22-30); Chloride 104 mmol/L (98-107); Estimated Glomerular Filt Rate 56; Glucose 104 mg/dL (65-110); Potassium 4.2 mmol/L (3.4-5.0); Sodium 138 mmol/L (137-145)
[2021-05-13 07:13] LABS: CA 15-3 18 U/mL (<32)
== END 2021-05-10 13:04 | disposition home or self-care (01) ==
LOC: ANHLAB 13:06
PROVIDERS: Visit Provider Internal Medicine Hematology & Oncology
DX: C50.411 Malignant neoplasm of upper-outer quadrant of right female breast (principal); Z17.0 Estrogen receptor positive status [ER+]
CPT/HCPCS: 36415; 80053; 85025; 86300

== ENCOUNTER 2021-05-22 12:05 | Outpatient (CLI) | payer OTHER, SELFPAY ==
--- NOTE | ~2021-05-22 | MM_ITS ---
EXAMINATION: MM diagnostic joy BI w monik HISTORY: History of right breast cancer TECHNIQUE: Craniocaudal, mediolateral, and mediolateral oblique 3-D tomosynthesis images of the breas ts were performed and synthetic 2-D images were generated. CAD analysis was submitted and interpreted . COMPARISON: 11/10/2020, 05/06/2020, 04/29/2019 BREAST PARENCHYMAL COMPOSITION: The breasts are heterogeneously dense, which may obscure small masses . FINDINGS: There is stable changes of lumpectomy in the upper outer quadrant of the right breast. Ther e has been no suspicious interval change. No mass, calcification, or new architectural distortion are identified. IMPRESSION: 1. No mammographic evidence of malignancy. 2. Recommend routine screening mammography in one year. BI-RADS Category 2: Benign finding(s). Reviewed, dictated and finalized at location A. HEN STEWARD
== END 2021-05-22 12:06 | disposition home or self-care (01) ==
LOC: ANHIMG 12:06
PROVIDERS: Visit Provider Internal Medicine Hematology & Oncology
DX: C50.411 Malignant neoplasm of upper-outer quadrant of right female breast (principal); Z17.0 Estrogen receptor positive status [ER+]
CPT/HCPCS: 77062; 77066; G0279

== ENCOUNTER 2022-01-18 12:25 | Outpatient (CLI) | payer OTHER, SELFPAY ==
[2022-01-18 12:43] LABS: Basophils Percent Auto 0.3 % (0.2-1.2); Eosinophils Absolute Auto 0.4 K/mm3 (0-0.3); Eosinophils Percent Auto 5.7 % (0-4.4); Hematocrit 46.7 % (37.0-47.0); Immature Granulocyte Absolute 0.01 K/mm3 (0.00-0.031); Immature Granulocyte Percent A 0.1 % (0-0.5); Lymphocytes Percent Auto 22.4 % (18.3-44.2); Mean Corpuscular HGB Conc 32.1 g/dl (32-36); Mean Corpuscular Hemoglobin 28.9 pg (26-34); Mean Platelet Volume 10.2 fl (7.4-10.4); Monocytes Absolute Auto 0.5 K/mm3 (0.1-0.6); Monocytes Percent Auto 7.7 % (2.6-8.5); Neutrophils Absolute Auto 4.3 K/mm3 (1.3-6.7); Neutrophils Percent Auto 63.8 % (45.5-73.1); Platelet Count Result 279 k/mm3 (150-375); Red Blood Count 5.19 M/mm3 (4.2-5.4); White Blood Count 6.7 K/mm3 (4.5-10.0)
[2022-01-18 14:14] LABS: Alanine Aminotransferase 20 U/L (6-35); Albumin Level 4.4 g/dL (3.5-5.1); Alkaline Phosphatase 79 U/L (38-126); Anion Gap 11 mmol/L (8-16); Aspartate Amino Transferase 19 U/L (14-36); Bilirubin,Total 0.5 mg/dL (0.2-1.3); Blood Urea Nitrogen 23 mg/dL (7-17); Calcium 8.8 mg/dL (8.4-10.2); Carbon Dioxide 25 mmol/L (22-30); Chloride 106 mmol/L (98-107); Estimated Glomerular Filt Rate 56; Glucose 92 mg/dL (65-110); Potassium 4.3 mmol/L (3.4-5.0); Sodium 142 mmol/L (137-145)
[2022-01-24 04:05] LABS: CA 15-3 20 U/mL (<32)
== END 2022-01-18 12:26 | disposition home or self-care (01) ==
PROVIDERS: Visit Provider Internal Medicine Hematology & Oncology
DX: C50.411 Malignant neoplasm of upper-outer quadrant of right female breast (principal); Z17.0 Estrogen receptor positive status [ER+]
CPT/HCPCS: 36415; 80053; 85025; 86300

== ENCOUNTER 2022-05-25 10:33 | Outpatient (CLI) | payer OTHER, SELFPAY ==
--- NOTE | ~2022-05-25 | MM_ITS ---
EXAMINATION: MM screening [facility] BI w monik HISTORY: Screening TECHNIQUE: Craniocaudal and mediolateral oblique 3-D tomosynthesis images were obtained and synthetic 2-D images were generated. CAD analysis was submitted and interpreted. COMPARISON: Comparison to multiple prior studies sequentially, with oldest reviewed study dated 09/2019. BREAST PARENCHYMAL COMPOSITION: There are scattered areas of fibroglandular density. FINDINGS: There is stable distortion in the right breast from previous lumpectomy for malignancy. The re is no evidence of suspicious mass, calcification, or architectural distortion to suggest malignanc y in either breast. There has been no suspicious interval change. IMPRESSION: 1. No mammographic evidence of malignancy. 2. Recommend routine screening mammography in one year. BI-RADS Category 2: Benign finding(s). Reviewed, dictated and finalized at location B. ICAL ASSOCIATE
== END 2022-05-25 10:34 | disposition home or self-care (01) ==
LOC: ANHIMG 10:34
PROVIDERS: Visit Provider Internal Medicine Hematology & Oncology
DX: Z12.31 Encounter for screening mammogram for malignant neoplasm of breast (principal)
CPT/HCPCS: 77063; 77067

== ENCOUNTER 2022-05-25 11:16 | Outpatient (CLI) | payer OTHER, SELFPAY ==
[2022-05-25 11:32] LABS: Basophils Percent Auto 0.6 % (0.2-1.2); Eosinophils Absolute Auto 0.4 K/mm3 (0-0.3); Hematocrit 43.4 % (37.0-47.0); Hemoglobin 14.1 g/dL (12.0-15.0); Immature Granulocyte Absolute 0.01 K/mm3 (0.00-0.031); Immature Granulocyte Percent A 0.1 % (0-0.5); Lymphocytes Absolute Auto 1.78 K/mm3 (0.9-3.2); Lymphocytes Percent Auto 26.5 % (18.3-44.2); Mean Corpuscular HGB Conc 32.5 g/dl (32-36); Mean Corpuscular Hemoglobin 28.8 pg (26-34); Mean Corpuscular Volume 88.6 fl (80-100); Mean Platelet Volume 9.9 fl (7.4-10.4); Monocytes Absolute Auto 0.6 K/mm3 (0.1-0.6); Monocytes Percent Auto 8.6 % (2.6-8.5); Neutrophils Absolute Auto 3.9 K/mm3 (1.3-6.7); Neutrophils Percent Auto 58.2 % (45.5-73.1); Platelet Count Result 286 k/mm3 (150-375); Red Cell Distribution Width 12.8 % (11.5-14.5); White Blood Count 6.7 K/mm3 (4.5-10.0)
[2022-05-25 13:02] LABS: Alanine Aminotransferase 24 U/L (6-35); Albumin Level 4.2 g/dL (3.5-5.1); Alkaline Phosphatase 82 U/L (38-126); Anion Gap 10 mmol/L (8-16); Aspartate Amino Transferase 28 U/L (14-36); Bilirubin,Total 0.5 mg/dL (0.2-1.3); Blood Urea Nitrogen 20 mg/dL (7-17); Calcium 8.5 mg/dL (8.4-10.2); Carbon Dioxide 28 mmol/L (22-30); Chloride 103 mmol/L (98-107); Estimated Glomerular Filt Rate > 60; Glucose 91 mg/dL (65-110); Potassium 4.2 mmol/L (3.4-5.0); Sodium 141 mmol/L (137-145)
[2022-05-30 04:33] LABS: CA 15-3 21 U/mL (<32)
== END 2022-05-25 11:17 | disposition home or self-care (01) ==
LOC: ANHLAB 11:18
PROVIDERS: Visit Provider Internal Medicine Hematology & Oncology
DX: C50.411 Malignant neoplasm of upper-outer quadrant of right female breast (principal); Z17.0 Estrogen receptor positive status [ER+]
CPT/HCPCS: 36415; 77063; 77067; 80053; 85025; 86300

== ENCOUNTER 2022-11-01 09:35 | Outpatient (CLI) | payer OTHER, SELFPAY ==
--- NOTE | ~2022-11-01 | DEXA_ITS ---
Bone Density Report Name: PRIMITIVO LEYVA Age: 67 Sex: Female Ethnicity: White Date of : 1955 Indication: osteopenia; prior fracture; cancer; postmenopausal Referring Provider: VADIM OROSCO Study: Bone densitometry was performed. Exam Date: November 01, 2022 Accession number: [id number] Bone Density: Region BMD T-score Z-score Classification AP Spine(L1-L4) 0.980 -0.6 1.2 Normal Femoral Neck (Left) 0.614 -2.1 -0.6 Osteopenia Total Hip (Left) 0.777 -1.3 -0.1 Osteopenia Femoral Neck (Right) 0.623 -2.0 -0.5 Osteopenia Total Hip (Right) 0.699 -2.0 -0.7 Osteopenia Total Hip Mean 0.738 -1.7 -0.4 Osteopenia World Health Organization criteria for BMD impression classify patients as: Normal (T-score at or above -1.0), Osteopenia (T-score between -1.0 and -2.5), or Osteoporosis (T-score at or below -2.5). 10-year Fracture Risk(1): Major Osteoporotic Fracture 18% Hip Fracture 2.8% Reported Risk Factors: [place] (), Neck BMD=0.614, BMI=27.2, previous fracture (1) FRAX(R) Version 3.08. Fracture probability calculated for an untreated patient. Fracture probability may be lower if the patient has received treatment. Previous Exams: Region Exam Age BMD T-score BMD Change BMD Change Date g/cm2 vs Baseline vs Previous Total Hip(Left) 11/01/2022 67 0.777 -1.3 0.004 (0.5%) 0.004 (0.5%) 05/06/2020 64 0.774 -1.4 Total Hip(Right) 11/01/2022 67 0.699 -2.0 -0.064 (-8.4%) -0.064 (-8.4%) 05/06/2020 64 0.763 -1.5 *Denotes significance at 95% confidence level, LSC for Total Hip = 0.027 g/cm2 Clinical Information Provided by Patient: Has had a low trauma fracture Has used the following medications: Vitamin D, Calcium Has the following medical conditions: Cancer Patient maximum height was 60 Menopause Age: 52 No regular weight bearing exercise Onset of menses at age 11 Number of children 2 Impression: The patient has low bone mass, based on the Left Femoral Neck T-score. The patient has an estimated ten-year risk of hip fracture of 2.8% and an estimated ten-year risk of major fracture of 18%, based on the WHO FRAX algorithm. The patient has risk factors, including: previous fracture. The BMD for the Total Hip(Right) decreased, changing by -8.4% since the last DXA exam. Discussion: BONE DENSITY IS LOW AT ONE OR MORE SKELETAL SITES. This patient's lowest T-score is low at one or more skeletal sites. It meets the World Health Organization's (WHO) criteria
== END 2022-11-01 09:36 | disposition home or self-care (01) ==
PROVIDERS: PCP Internal Medicine; Visit Provider Internal Medicine Hematology & Oncology
DX: M85.89 Other specified disorders of bone density and structure, multiple sites (principal)
CPT/HCPCS: 36415; 77080; 80053; 85025; 86300

== ENCOUNTER 2022-11-01 10:10 | Outpatient (CLI) | payer OTHER, SELFPAY ==
[2022-11-01 10:34] LABS: Basophils Percent Auto 0.7 % (0.2-1.2); Eosinophils Absolute Auto 0.1 K/mm3 (0-0.3); Eosinophils Percent Auto 2.4 % (0-4.4); Hematocrit 44.4 % (37.0-47.0); Hemoglobin 14.3 g/dL (12.0-15.0); Immature Granulocyte Absolute 0.02 K/mm3 (0.00-0.031); Immature Granulocyte Percent A 0.3 % (0-0.5); Lymphocytes Absolute Auto 1.11 K/mm3 (0.9-3.2); Lymphocytes Percent Auto 18.7 % (18.3-44.2); Mean Corpuscular HGB Conc 32.2 g/dl (32-36); Mean Corpuscular Hemoglobin 28.5 pg (26-34); Mean Corpuscular Volume 88.6 fl (80-100); Monocytes Absolute Auto 0.4 K/mm3 (0.1-0.6); Monocytes Percent Auto 7.3 % (2.6-8.5); Neutrophils Absolute Auto 4.2 K/mm3 (1.3-6.7); Neutrophils Percent Auto 70.6 % (45.5-73.1); Platelet Count Result 328 k/mm3 (150-375); Red Blood Count 5.01 M/mm3 (4.2-5.4); Red Cell Distribution Width 12.9 % (11.5-14.5); White Blood Count 5.9 K/mm3 (4.5-10.0)
[2022-11-01 12:52] LABS: Alanine Aminotransferase 24 U/L (6-35); Albumin Level 4.4 g/dL (3.5-5.1); Alkaline Phosphatase 57 U/L (38-126); Anion Gap 7 mmol/L (8-16); Aspartate Amino Transferase 23 U/L (14-36); Bilirubin,Total 0.3 mg/dL (0.2-1.3); Blood Urea Nitrogen 24 mg/dL (7-17); Calcium 9.1 mg/dL (8.4-10.2); Carbon Dioxide 29 mmol/L (22-30); Chloride 103 mmol/L (98-107); Estimated Glomerular Filt Rate 41; Glucose 134 mg/dL (65-110); Sodium 139 mmol/L (137-145)
[2022-11-07 04:47] LABS: CA 15-3 21 U/mL (<32)
== END 2022-11-01 10:11 | disposition home or self-care (01) ==
LOC: ANHLAB 10:13
PROVIDERS: PCP Internal Medicine; Visit Provider Internal Medicine Hematology & Oncology
DX: C50.411 Malignant neoplasm of upper-outer quadrant of right female breast (principal); Z17.0 Estrogen receptor positive status [ER+]
CPT/HCPCS: 36415; 80053; 85025; 86300

== ENCOUNTER 2023-03-06 10:50 | Outpatient (CLI) | payer OTHER, SELFPAY ==
[2023-03-06 11:04] LABS: Basophils Percent Auto 0.5 % (0.2-1.2); Eosinophils Absolute Auto 0.4 K/mm3 (0-0.3); Eosinophils Percent Auto 6.1 % (0-4.4); Hematocrit 44.3 % (37.0-47.0); Hemoglobin 14.3 g/dL (12.0-15.0); Immature Granulocyte Absolute 0.01 K/mm3 (0.00-0.031); Immature Granulocyte Percent A 0.2 % (0-0.5); Lymphocytes Absolute Auto 1.57 K/mm3 (0.9-3.2); Lymphocytes Percent Auto 25.7 % (18.3-44.2); Mean Corpuscular HGB Conc 32.3 g/dl (32-36); Mean Corpuscular Hemoglobin 28.6 pg (26-34); Mean Corpuscular Volume 88.6 fl (80-100); Mean Platelet Volume 10.3 fl (7.4-10.4); Monocytes Absolute Auto 0.6 K/mm3 (0.1-0.6); Monocytes Percent Auto 9.2 % (2.6-8.5); Neutrophils Absolute Auto 3.6 K/mm3 (1.3-6.7); Neutrophils Percent Auto 58.3 % (45.5-73.1); Platelet Count Result 323 k/mm3 (150-375); Red Cell Distribution Width 13.1 % (11.5-14.5); White Blood Count 6.1 K/mm3 (4.5-10.0)
[2023-03-06 17:08] LABS: Anion Gap 9 mmol/L (8-16); Blood Urea Nitrogen 27 mg/dL (7-17); Calcium 9.6 mg/dL (8.4-10.2); Carbon Dioxide 25 mmol/L (22-30); Chloride 107 mmol/L (98-107); Estimated Glomerular Filt Rate 38; Glucose 118 mg/dL (65-110); Potassium 4.4 mmol/L (3.4-5.0); Sodium 141 mmol/L (137-145)
[2023-03-09 10:38] LABS: CA 15-3 22 U/mL (<32)
== END 2023-03-06 10:51 | disposition home or self-care (01) ==
LOC: ANHLAB 10:52
PROVIDERS: PCP Internal Medicine; Visit Provider Internal Medicine Hematology & Oncology
DX: C50.411 Malignant neoplasm of upper-outer quadrant of right female breast (principal); Z17.0 Estrogen receptor positive status [ER+]
CPT/HCPCS: 36415; 80048; 85025; 86300

== ENCOUNTER 2023-04-05 10:44 | Outpatient (CLI) | payer OTHER, SELFPAY ==
[2023-04-05 11:06] LABS: Basophils Absolute Auto 0.1 K/mm3 (0.0-0.1); Basophils Percent Auto 0.8 % (0.2-1.2); Eosinophils Absolute Auto 0.4 K/mm3 (0-0.3); Eosinophils Percent Auto 6.4 % (0-4.4); Hematocrit 43.2 % (37.0-47.0); Hemoglobin 14.1 g/dL (12.0-15.0); Immature Granulocyte Absolute 0.02 K/mm3 (0.00-0.031); Immature Granulocyte Percent A 0.3 % (0-0.5); Lymphocytes Absolute Auto 1.46 K/mm3 (0.9-3.2); Lymphocytes Percent Auto 22.9 % (18.3-44.2); Mean Corpuscular HGB Conc 32.6 g/dl (32-36); Mean Corpuscular Hemoglobin 28.7 pg (26-34); Mean Platelet Volume 10.1 fl (7.4-10.4); Monocytes Absolute Auto 0.6 K/mm3 (0.1-0.6); Monocytes Percent Auto 9.9 % (2.6-8.5); Neutrophils Absolute Auto 3.8 K/mm3 (1.3-6.7); Neutrophils Percent Auto 59.7 % (45.5-73.1); Platelet Count Result 316 k/mm3 (150-375); Red Blood Count 4.91 M/mm3 (4.2-5.4); White Blood Count 6.4 K/mm3 (4.5-10.0)
[2023-04-05 13:40] LABS: Anion Gap 7 mmol/L (8-16); Blood Urea Nitrogen 31 mg/dL (7-17); Calcium 9.6 mg/dL (8.4-10.2); Carbon Dioxide 31 mmol/L (22-30); Chloride 105 mmol/L (98-107); Estimated Glomerular Filt Rate 45; Glucose 98 mg/dL (65-110); Potassium 4.5 mmol/L (3.4-5.0); Sodium 143 mmol/L (137-145)
[2023-04-09 19:28] LABS: CA 15-3 20 U/mL (<32)
== END 2023-04-05 10:45 | disposition home or self-care (01) ==
LOC: ANHLAB 10:46
PROVIDERS: PCP Internal Medicine; Visit Provider Internal Medicine Hematology & Oncology
DX: C50.411 Malignant neoplasm of upper-outer quadrant of right female breast (principal); Z17.0 Estrogen receptor positive status [ER+]
CPT/HCPCS: 36415; 80048; 85025; 86300

== ENCOUNTER 2023-08-15 16:53 | Outpatient (CLI) | payer OTHER, SELFPAY ==
--- NOTE | ~2023-08-15 | MM_ITS ---
EXAMINATION: MM screening joy BI w monik HISTORY: Screening mammogram TECHNIQUE: Craniocaudal and mediolateral oblique 3-D tomosynthesis images were obtained and synthetic 2-D images were generated. CAD analysis was submitted and interpreted. COMPARISON: 05/25/2022, 05/22/2021, 11/10/2020 BREAST PARENCHYMAL COMPOSITION:Dense: The breasts are heterogeneously dense, which may obscure small masses. FINDINGS: No suspicious mass, calcification, or architectural distortion are identified in either soila ast to suggest malignancy. There has been no suspicious interval change. IMPRESSION: No mammographic evidence of malignancy. Recommend routine screening mammography in one year. BI-RADS Category 1: Negative Reviewed, dictated and finalized at location .
== END 2023-08-15 16:54 | disposition home or self-care (01) ==
PROVIDERS: PCP Internal Medicine; Visit Provider Internal Medicine Hematology & Oncology
DX: Z12.31 Encounter for screening mammogram for malignant neoplasm of breast (principal)
CPT/HCPCS: 77063; 77067

== ENCOUNTER 2023-10-22 09:39 | Outpatient (CLI) | payer OTHER, SELFPAY ==
[2023-10-22 09:55] LABS: Basophils Absolute Auto 0.1 K/mm3 (0.0-0.1); Eosinophils Absolute Auto 0.6 K/mm3 (0-0.3); Eosinophils Percent Auto 9.1 % (0-4.4); Hematocrit 47.5 % (37.0-47.0); Immature Granulocyte Absolute 0.01 K/mm3 (0.00-0.031); Immature Granulocyte Percent A 0.2 % (0-0.5); Lymphocytes Absolute Auto 1.69 K/mm3 (0.9-3.2); Lymphocytes Percent Auto 27.1 % (18.3-44.2); Mean Corpuscular HGB Conc 31.6 g/dl (32-36); Mean Corpuscular Hemoglobin 28.2 pg (26-34); Mean Corpuscular Volume 89.3 fl (80-100); Mean Platelet Volume 10.2 fl (7.4-10.4); Monocytes Absolute Auto 0.6 K/mm3 (0.1-0.6); Monocytes Percent Auto 9.1 % (2.6-8.5); Neutrophils Absolute Auto 3.3 K/mm3 (1.3-6.7); Neutrophils Percent Auto 53.5 % (45.5-73.1); Platelet Count Result 313 k/mm3 (150-375); Red Blood Count 5.32 M/mm3 (4.2-5.4); Red Cell Distribution Width 13.2 % (11.5-14.5); White Blood Count 6.2 K/mm3 (4.5-10.0)
[2023-10-22 12:10] LABS: Alanine Aminotransferase 25 U/L (6-35); Albumin Level 4.6 g/dL (3.5-5.1); Alkaline Phosphatase 41 U/L (38-126); Anion Gap 11 mmol/L (4-12); Aspartate Amino Transferase 25 U/L (14-36); Bilirubin,Total 0.5 mg/dL (0.2-1.3); Blood Urea Nitrogen 29 mg/dL (7-17); Calcium 9.6 mg/dL (8.4-10.2); Carbon Dioxide 29 mmol/L (22-30); Chloride 100 mmol/L (98-107); Estimated Glomerular Filt Rate 30; Glucose 104 mg/dL (65-110); Potassium 4.1 mmol/L (3.4-5.0); Sodium 140 mmol/L (137-145)
[2023-10-23 12:29] LABS: CA 15-3 20 U/mL (<32)
== END 2023-10-22 09:40 | disposition home or self-care (01) ==
LOC: ANHLAB 09:41
PROVIDERS: PCP Internal Medicine; Visit Provider Internal Medicine Hematology & Oncology
DX: C50.411 Malignant neoplasm of upper-outer quadrant of right female breast (principal); Z17.0 Estrogen receptor positive status [ER+]
CPT/HCPCS: 36415; 80053; 85025; 86300

== ENCOUNTER 2023-11-05 10:32 | Outpatient (CLI) | payer OTHER, SELFPAY ==
[2023-11-05 12:51] LABS: Anion Gap 9 mmol/L (4-12); Blood Urea Nitrogen 42 mg/dL (7-17); Calcium 9.6 mg/dL (8.4-10.2); Carbon Dioxide 29 mmol/L (22-30); Chloride 100 mmol/L (98-107); Estimated Glomerular Filt Rate 28; Glucose 106 mg/dL (65-110); Potassium 4.1 mmol/L (3.4-5.0); Sodium 138 mmol/L (137-145)
[2023-11-06 11:48] LABS: Kappa\\Lambda Light Chains 2.01 (0.26-1.65)
[2023-11-07 01:08] LABS: Protein, Total 7.3 g/dL (6.1-8.1)
[2023-11-07 12:08] LABS: Albumin 3.7 g/dL (3.8-4.8); Alpha 1 Globulin 0.4 g/dL (0.2-0.3); Alpha 2 Globulin 0.7 g/dL (0.5-0.9); Beta 1 Globulin 0.6 g/dL (0.4-0.6); Gamma Globulin 1.5 g/dL (0.8-1.7)
== END 2023-11-05 10:33 | disposition home or self-care (01) ==
LOC: ANHLAB 10:34
PROVIDERS: PCP Internal Medicine; Visit Provider Internal Medicine Hematology & Oncology
DX: R77.9 Abnormality of plasma protein, unspecified (principal)
CPT/HCPCS: 36415; 80048; 83883; 84155; 84165

== ENCOUNTER 2023-11-19 10:09 | Outpatient (CLI) | payer OTHER, SELFPAY ==
[2023-11-19 17:00] LABS: Immunoglobulin A 224 mg/dL (70-400); Immunoglobulin G 1522 mg/dL (700-1600); Immunoglobulin M 277 mg/dL (40-230)
== END 2023-11-19 10:10 | disposition home or self-care (01) ==
LOC: ANHLAB 10:13
PROVIDERS: PCP Internal Medicine; Visit Provider Internal Medicine Hematology & Oncology
DX: R79.9 Abnormal finding of blood chemistry, unspecified (principal)
CPT/HCPCS: 36415; 82784

== ENCOUNTER 2024-01-20 13:54 | Outpatient (CLI) | payer OTHER, SELFPAY ==
--- NOTE | ~2024-01-20 | US_ITS ---
EXAMINATION: US renal BI DATE: 01/20/2024 15:45 INDICATION: Chronic kidney disease TECHNIQUE: Multiple ultrasound grayscale images of the kidneys were obtained. COMPARISON: None. FINDINGS: The right kidney measures 8.5 x 3.7 x 4.3 cm. The left kidney measures 9.4 x 5.1 x 3.9 cm. The kidney s demonstrate normal echogenicity. There is a 3.5 x 2.5 x 3.4 cm complex cystic lesion in the left ki dney which is anechoic with thin linear internal septations and small hypoechoic regions within the c yst. There is a focus of color/of the hypoechoic regions on color Doppler which could represent eithe r vascular flow or technical artifact related to calcification. A Doppler waveform was not obtained t o definitively identify vascular flow. There is no hydronephrosis in either kidney. No shadowing sampson al stones identified. The bladder is normal with bilateral internal ureteral jets visualized on color Doppler. IMPRESSION: 1. Indeterminate 3.5 cm complex cystic lesion at the left kidney with internal hypoechoic debris with calcification versus soft tissue component, the latter which would be concerning for renal cell carc inoma. Recommend further evaluation with pre and postcontrast CT or preferably MRI. 2. Otherwise normal kidneys without hydronephrosis. Reviewed, dictated and finalized at location A. IMPRESSION: 1. Indeterminate 3.5 cm complex cystic lesion at the left kidney with internal hypoechoic debris with calcification versus soft tissue component, the latter w hich would be concerning for renal cell carcinoma. Recommend further evaluation with pre and postcontrast CT or preferably MRI. 2. Otherwise normal kidneys without hydronephrosis.
== END 2024-01-20 13:55 | disposition home or self-care (01) ==
PROVIDERS: PCP Internal Medicine; Visit Provider Internal Medicine Nephrology
DX: E11.22 Type 2 diabetes mellitus with diabetic chronic kidney disease (principal); I12.9 Hypertensive chronic kidney disease with stage 1 through stage 4 chronic kidney disease, or unspecified chronic kidney disease; N18.4 Chronic kidney disease, stage 4 (severe)
CPT/HCPCS: 76775

== ENCOUNTER 2024-02-17 09:09 | Outpatient (CLI) | payer OTHER, SELFPAY ==
[2024-02-17 11:06] LABS: Albumin Level 4.4 g/dL (3.5-5.1); Anion Gap 10 mmol/L (4-12); Blood Urea Nitrogen 36 mg/dL (7-17); Carbon Dioxide 28 mmol/L (22-30); Chloride 101 mmol/L (98-107); Estimated Glomerular Filt Rate 32; Glucose 91 mg/dL (65-110); Phosphorus 3.6 mg/dL (2.5-4.5); Potassium 4.4 mmol/L (3.4-5.0); Sodium 139 mmol/L (137-145)
[2024-02-17 11:14] LABS: Complement C3 113 mg/dL (88-165)
[2024-02-17 11:23] LABS: Creatinine Urine 82.8 mg/dL; Total Protein Urine Random 113 mg/dL; Ur Ttl Prot Creatinine Ratio 1.36 mg/mg (0-0.20)
[2024-02-19 02:18] LABS: Creatinine, Random Urine 88 mg/dL (20-275); Total Prot/Creat ratio mg/mg 0.989 (0.024-0.184); Total Protein/Creatinine Ratio 989 mg/g creat (24-184)
[2024-02-19 02:39] LABS: Protein, Total 7.4 g/dL (6.1-8.1)
== END 2024-02-17 09:10 | disposition home or self-care (01) ==
PROVIDERS: Internal Medicine Nephrology; PCP Internal Medicine; Visit Provider Internal Medicine Hematology & Oncology
DX: I12.9 Hypertensive chronic kidney disease with stage 1 through stage 4 chronic kidney disease, or unspecified chronic kidney disease (principal); N18.4 Chronic kidney disease, stage 4 (severe); E11.22 Type 2 diabetes mellitus with diabetic chronic kidney disease
CPT/HCPCS: 36415; 80069; 82570; 83520; 84155; 84156; 84165; 84166; 86036; 86038; 86039; 86160; 86225

== ENCOUNTER 2024-04-13 12:15 | Outpatient (CLI) | payer OTHER, SELFPAY ==
--- NOTE | ~2024-04-13 | MR_ITS ---
EXAMINATION: MR abdomen wo/w con DATE: 04/13/2024 13:28 INDICATION: Left kidney mass. TECHNIQUE: Magnetic resonance imaging (MRI) of the abdomen was performed without and with 12 mL Multi Tonio intravenous contrast. COMPARISON: Ultrasound 01/20/2024 FINDINGS: The liver, gallbladder, spleen, and adrenal glands are normal. There are multiple cystic lesions in t he pancreas measuring up to 14 mm. The main pancreatic duct is normal in caliber. There is cortical t hinning of the kidneys. There is a 5 mm hemorrhagic cyst in right kidney. There is a 3.2 cm cyst in l eft kidney. There is a 4 mm cyst in left kidney. There are no dilated loops of bowel. There are no pa thologically enlarged lymph nodes. There is no free intraperitoneal fluid. IMPRESSION: 1. Benign cysts in the kidneys. 2. Low risk cystic lesions of the pancreas measuring up to 14 mm. The differential diagnosis includes pseudocyst, intraductal papillary mucinous neoplasm (IPMN), mucinous cystic neoplasm (MCN), serous c ystadenoma, and neuroendocrine tumor. Abdomen MRI without and with contrast is recommended in 2 years . Reviewed, dictated and finalized at location B. T PRODUCTION COORDINATOR IMPRESSION: 1. Benign cysts in the kidneys. 2. Low risk cystic lesions of the pancreas measuring up to 14 mm. The different ial diagnosis includes pseudocyst, intraductal papillary mucinous neoplasm (IPM N), mucinous cystic neoplasm (MCN), serous cystadenoma, and neuroendocrine tumo r. Abdomen MRI without and with contrast is recommended in 2 years.
== END 2024-04-13 12:16 | disposition home or self-care (01) ==
PROVIDERS: PCP Internal Medicine; Visit Provider Internal Medicine Nephrology
DX: N28.1 Cyst of kidney, acquired (principal); K86.2 Cyst of pancreas; N28.89 Other specified disorders of kidney and ureter
CPT/HCPCS: 74183; A9577

== ENCOUNTER 2024-05-11 08:11 | Outpatient (CLI) | payer OTHER, SELFPAY ==
[2024-05-11 08:45] LABS: Basophils Absolute Auto 0.1 K/mm3 (0.0-0.1); Basophils Percent Auto 0.7 % (0.2-1.2); Eosinophils Absolute Auto 0.9 K/mm3 (0-0.3); Eosinophils Percent Auto 12.8 % (0-4.4); Hematocrit 43.5 % (37.0-47.0); Hemoglobin 13.9 g/dL (12.0-15.0); Immature Granulocyte Absolute 0.02 K/mm3 (0.00-0.031); Immature Granulocyte Percent A 0.3 % (0-0.5); Lymphocytes Absolute Auto 1.52 K/mm3 (0.9-3.2); Lymphocytes Percent Auto 22.3 % (18.3-44.2); Mean Corpuscular Hemoglobin 28.2 pg (26-34); Mean Corpuscular Volume 88.2 fl (80-100); Mean Platelet Volume 10.6 fl (7.4-10.4); Monocytes Absolute Auto 0.6 K/mm3 (0.1-0.6); Neutrophils Absolute Auto 3.7 K/mm3 (1.3-6.7); Neutrophils Percent Auto 54.9 % (45.5-73.1); Platelet Count Result 271 k/mm3 (150-375); Red Blood Count 4.93 M/mm3 (4.2-5.4); Red Cell Distribution Width 12.9 % (11.5-14.5); White Blood Count 6.8 K/mm3 (4.5-10.0)
--- OUTSIDE RECORDS SUMMARY | 2024-05-11 11:13 | XMS_ITS | Referral Summary ---
Author Organization [facility] Address [address] [place] [address] Care Team Providers Care Volleyball Assistant Coach Name Role Phone Unavailable Primary Care Provider Unavailabl e Source Comments [facility],non-owned Affiliates and Associated Physician Practices is amultiple site organization consisting of ambulatory clinics and hospital sitesin [place], [place], [place] and [place]. This disclosure is being madepursuant to the Care Everywhere program and may not contain all information available regarding this patient. Last updated 17.[facility] [employer] Social History Tobacco Use Types Packs/Day Years Used Date Smoking Tobacco: Never Assessed Sex and Gender Information Value Date Recorded Sex Assigned at Not on file Gender Identity Not on file Sexual Orientation Not on file Plan of Treatment Not on file
--- OUTSIDE RECORDS SUMMARY | 2024-05-11 11:14 | XMS_ITS | Data Portability ---
Author Organization [facility] [place] Address [address] [place] [address] Care Team Providers Care Lyric Writer Name Role Phone JUSTINAMARIS INFANTE Nurse Outreach Case Manager [phone] SOURAV FRYE Primary Care Provider [phone] Assessment Encounter Date Assessment Date Assessment LastModified by Organization Details LastModified Time 07/30/2023 07/30/2023 Will get blood work continue current therapy stay up-to-date on eye doctors appointment she has 23 November believes that she is due for colonoscopy next year targets for A1c lipid and blood pressure been discussed [email or web address] Not available 08/10/2023 00:01:26 01/08/2024 01/08/2024 we will continue current therapy blood work has been ordered she has been advised to see podiatry for foot exam and her eye doctor for a diabetic eye exam follow up 4 months [email or web address] Not available 02/01/2024 21:24:16 04/15/2024 04/15/2024 continue current therapy she is getting worked up for chronic kidney disease by renal who up to this point has not told her to discontinue metformin we will have to watch that very closely with her GFR. We will continue current therapy she will follow up with me in 4 months. We will set up with diabetic foot exam [email or web address] Not available 04/19/2024 17:28:29 Plan of Treatment Reminders Order Date Submit Date Provider Last Modified By Organization Details Last Modified Time Details Appointments ANY 15 2024 10:00A Horacio Frye MD Not available Not available Not available Lab HbA1c (hemoglob in A1c), blood 2023 024 [facility], [address] [facility], [address], [place], [address], 01/09/2024 06:23:22 lipid panel, serum 2023 024 [facility], [address], [address], [place], [address], 01/09/2024 06:24:13 CMP, serum or plasma 2023 024 [facility], [address], [address], [place], [address], 01/09/2024 06:24:14 CBC w/ auto diff 2023 024 [facility], [address], [address], [place], [address], 01/09/2024 06:24:16 HbA1c (hemoglob in A1c), blood 2023 024 [facility], [address], [address], [place], [address], 07/31/2023 10:13:36 albumin/c reatinine , mass ratio, urine 2023 024 [facility], [address], [address], [place], [address], 07/31/2023 10:13:35 CBC w/ auto diff 2023 024 [facility], [address], [address], [place], [address], 07/31/2023 06:17:08 CMP, serum or plasma 2023 024 [facility], [address], [address], [place], [address], 07/31/2023 06:17:07 lipid panel, serum 2023 024 [facility], [address] [facility] [address], [address], [place], [address], 07/31/2023 06:17:06 HbA1c (hemoglob in A1c), blood 2023 024 [email or web address] In-Office Order, Internal Use Only DO Not Attach Compendium DO Not Attach Compendium, Do Not Delete/merge, [id number] 04/29/2023 12:52:28 Referral podiatris t referral 2024 025 [facility], [address] [facility], [facility] [address], [place], [address], 04/17/2024 10:43:51 Procedures None recorded. Surgeries None recorded. Imaging None recorded. Medication Orders OneTouch Verio test strips 2023 024 [email or web address] [facility], [address] [place] [address], [id number], 07/30/2023 13:34:13 losartan 50 mg tablet 2023 024 [facility] [address], [address] [place] [address], [id number], 04/29/2023 12:52:45 Januvia 100 mg tablet 2023 024 [facility] [address], [address] [place] [address], [id number], 04/29/2023 12:52:46 metformin 500 mg tablet 2023 024 [facility] [address], [address] [place] [address], [id number], 04/29/2023 12:52:44 calcium 600 mg (as carbonate )-vitamin D3 10 mcg (400 unit) tablet 2023 024 [facility] [address], [address] [place] [address], [id number], 04/29/2023 12:52:45 omega-3 acid ethyl esters 1 gram capsule 2023 024 [facility] [address], [address] [place] [address], [id number], 04/29/2023 12:52:43 fenofibra te 120 mg tablet 2023 024 [facility] [address], [address] [place] [address], [id number], 02/03/2024 11:26:43 lovastati n 20 mg tablet 2023 024 [facility] [address], [address] [place] [address], [id number], 04/29/2023 12:52:45 Patient TargetsNo targets recorded. Patient Instructions Encounter Date Encounter Id Patient Instructions Last Modified By Organization Details Last Modified Time 04/29/2023 [id number] high cholesterol : care instructions [email or web address] Not available 04/29/2023 12:52:25 04/15/2024 [id number] A healthy lifestyle: care instructions [email or web address] Not available 04/15/2024 15:05:24 Reason for Referral [employer] Offbearer Referral for Type 2 diabetes mellitus Referring Physician: Sourav Frye, Internal Medicine, Encounter Date: 04/15/2024 Results Created Date Observation Date Name Description Value Unit Range Abnormal Flag Note LastModifiedBy Organization Detail LastModifiedTime 04/29/19 24 04/29/2023 HbA1c (hemo globi n A1c), blood HbA1c 5.7 % today Not Available In-Office Order Internal Use Only DO Not Attach Compendium DO Not Attach Compendium, Do Not Delete/merge, [id number] 04/29/2023 12:48:34 07/30/19 24 07/30/2023 LIPID PANEL cholesterol, total 180 mg/dL 100-19 9 Not Available [facility] [address] [place], [address], 07/31/2023 06:17:06 07/30/19 24 07/30/2023 LIPID PANEL triglyceride s 163 mg/dL 0-149 above high normal Not Available [facility] [address] [place] [address], [address], 07/31/2023 06:17:06 07/30/19 24 07/30/2023 LIPID PANEL HDL cholesterol 57 mg/dL 40-999 Not Available [facility] [address] [place] [address], [address], 07/31/2023 06:17:06 07/30/19 24 07/30/2023 LIPID PANEL VLDL cholesterol viridiana 33 mg/dL 5-[address] [facility] [address] [place] [address], [address], 07/31/2023 06:17:06 07/30/19 24 07/30/2023 LIPID PANEL LDL chol calc (nih) 114 mg/dL 0-99 above high normal Not Available [facility] [address] [place] [address], [address], 07/31/2023 06:17:06 07/30/19 24 07/30/2023 COMP. METAB OLIC PANEL (14) glucose 90 mg/dL 70-99 Not Available [facility] [address] [place] [address], [address], 07/31/2023 06:17:07 07/30/19 24 07/30/2023 COMP. METAB OLIC PANEL (14) BUN 37 mg/dL 8-27 above high normal Not Available [facility] [address] [place] [address], [address], 07/31/2023 06:17:07 07/30/19 24 07/30/2023 COMP. METAB OLIC PANEL (14) creatinine 1.35 mg/dL 0.76-1 .27 above high normal Not Available [facility] [address] [place] [address], [address], 07/31/2023 06:17:07 07/30/19 24 07/30/2023 COMP. METAB OLIC PANEL (14) eGFR 43 >=60 below low normal Units for eGFR value s are mL/mi n/1.7 3 The eGFR Calcu latio n has not been valid ated for patie nts under the age of 18. If test resul ts are displ ayed for a patie nt under the age of 18, disre enrique that value . Not Available [facility] [address] [place] [address], [address], 07/31/2023 06:17:07 07/30/19 24 07/30/2023 COMP. METAB OLIC PANEL (14) BUN/creatini ne ratio 28 10-[address] [facility] [address] [place] [address], [address], 07/31/2023 06:17:07 07/30/19 24 07/30/2023 COMP. METAB OLIC PANEL (14) sodium 141 mmol/ L 134-14 4 Not Available [facility] [address] [place] [address], [address], 07/31/2023 06:17:07 07/30/19 24 07/30/2023 COMP. METAB OLIC PANEL (14) potassium 4.5 mmol/ L 3.5-5. 2 Not Available [facility] [address] [place] [address], [address], 07/31/2023 06:17:07 07/30/19 24 07/30/2023 COMP. METAB OLIC PANEL (14) chloride 102 mmol/ L 96-106 Not Available [facility] [address] [place] [address], [address], 07/31/2023 06:17:07 07/30/19 24 07/30/2023 COMP. METAB OLIC PANEL (14) carbon dioxide, total 24 mmol/ L 20-29 Not Available [facility] [address] [place], [address], 07/31/2023 06:17:07 07/30/19 24 07/30/2023 COMP. METAB OLIC PANEL (14) calcium 10.6 mg/dL 8.7-10 .3 above high normal Not Available [facility] [address] [place], [address], 07/31/2023 06:17:07 07/30/19 24 07/30/2023 COMP. METAB OLIC PANEL (14) protein, total 7.9 g/dL 6.0-8. 5 Not Available [facility] [address] [place], [address], 07/31/2023 06:17:07 07/30/19 24 07/30/2023 COMP. METAB OLIC PANEL (14) albumin 4.4 g/dL 3.8-4. 8 Not Available [facility] [address] [place], [address], 07/31/2023 06:17:07 07/30/19 24 07/30/2023 COMP. METAB OLIC PANEL (14) globulin, total 3.5 g/dL 1.5-4. 5 Not Available [facility] [address] [place], [address], 07/31/2023 06:17:07 07/30/19 24 07/30/2023 COMP. METAB OLIC PANEL (14) A/G ratio 1.0 1.2-2. 2 below low normal Not Available [facility] [address] [place], [address], 07/31/2023 06:17:07 07/30/19 24 07/30/2023 COMP. METAB OLIC PANEL (14) bilirubin, total 0.3 mg/dL 0.0-1. 2 Not Available [facility] [address] [place], [address], 07/31/2023 06:17:07 07/30/19 24 07/30/2023 COMP. METAB OLIC PANEL (14) alkaline phosphatase 39 IU/L 44-121 below low normal Not Available [facility] [address] [place], [address], 07/31/2023 06:17:07 07/30/19 24 07/30/2023 COMP. METAB OLIC PANEL (14) AST (SGOT) 17 IU/L 0-40 Not Available [facility] [address] [place], [address], 07/31/2023 06:17:07 07/30/19 24 07/30/2023 COMP. METAB OLIC PANEL (14) ALT (SGPT) 17 IU/L 0-32 Not Available [facility] [address] [place], [address], 07/31/2023 06:17:07 07/30/19 24 07/30/2023 CBC WITH DIFFE RENTI AL/PL ATELE T WBC 7.0 x10e3 /uL 3.4-10 .8 Not Available [facility] [address] [place], [address], 07/31/2023 06:17:08 07/30/19 24 07/30/2023 CBC WITH DIFFE RENTI AL/PL ATELE T RBC 5.21 x10e6 /uL 3.77-5 .28 Not Available [facility] [address] [place], [address], 07/31/2023 06:17:08 07/30/19 24 07/30/2023 CBC WITH DIFFE RENTI AL/PL ATELE T hemoglobin 14.7 g/dL 11.1-1 5.9 Not Available [facility] [address] [place], [address], 07/31/2023 06:17:08 07/30/19 24 07/30/2023 CBC WITH DIFFE RENTI AL/PL ATELE T hematocrit 47.3 % 34.0-4 6.6 above high normal Not Available [facility] [address] [place], [address], 07/31/2023 06:17:08 07/30/19 24 07/30/2023 CBC WITH DIFFE RENTI AL/PL ATELE T MCV 91 fL 79-97 Not Available [facility] [address] [place], [address], 07/31/2023 06:17:08 07/30/19 24 07/30/2023 CBC WITH DIFFE RENTI AL/PL ATELE T MCH 28.2 pg 26.6-3 3.0 Not Available [facility] [address] [place] [address], [address], 07/31/2023 06:17:08 07/30/19 24 07/30/2023 CBC WITH DIFFE RENTI AL/PL ATELE T MCHC 31.1 g/dL 31.5-3 5.7 below low normal Not Available [facility] [address] [place], [address], 07/31/2023 06:17:08 07/30/19 24 07/30/2023 CBC WITH DIFFE RENTI AL/PL ATELE T RDW 13.1 % 11.5-1 4.5 Not Available [facility] [address] [place], [address], 07/31/2023 06:17:08 07/30/19 24 07/30/2023 CBC WITH DIFFE RENTI AL/PL ATELE T platelets 366 x10e3 /uL 150-45 0 Not Available [facility] [address] [place], [address], 07/31/2023 06:17:08 07/30/19 24 07/30/2023 CBC WITH DIFFE RENTI AL/PL ATELE T neutrophils 61 % notest b. Not Available [facility] [address] [place], [address], 07/31/2023 06:17:08 07/30/19 24 07/30/2023 CBC WITH DIFFE RENTI AL/PL ATELE T lymphs 21 % notest b. Not Available [facility] [address] [place], [address], 07/31/2023 06:17:08 07/30/19 24 07/30/2023 CBC WITH DIFFE RENTI AL/PL ATELE T monocytes 9 % notest b. Not Available [facility] [address] [place], [address], 07/31/2023 06:17:08 07/30/19 24 07/30/2023 CBC WITH DIFFE RENTI AL/PL ATELE T eos 8 % notest b. Not Available [facility] [address] [place], [address], 07/31/2023 06:17:08 07/30/19 24 07/30/2023 CBC WITH DIFFE RENTI AL/PL ATELE T basos 1 % notest b. Not Available [facility] [address] [place], [address], 07/31/2023 06:17:08 07/30/19 24 07/30/2023 CBC WITH DIFFE RENTI AL/PL ATELE T neutrophils (absolute) 4.3 x10e3 /uL 1.4-7. 0 Not Available [facility] [address] [place], [address], 07/31/2023 06:17:08 07/30/19 24 07/30/2023 CBC WITH DIFFE RENTI AL/PL ATELE T lymphs (absolute) 1.5 x10e3 /uL 0.7-3. 1 Not Available [facility] [address] [place], [address], 07/31/2023 06:17:08 07/30/19 24 07/30/2023 CBC WITH DIFFE RENTI AL/PL ATELE T monocytes(ab solute) 0.6 x10e3 /uL 0.1-0. 9 Not Available [facility] [address] [place], [address], 07/31/2023 06:17:08 07/30/19 24 07/30/2023 CBC WITH DIFFE RENTI AL/PL ATELE T eos (absolute) 0.5 x10e3 /uL 0.0-0. 4 above high normal Not Available [facility] [address] [place], [address], 07/31/2023 06:17:08 07/30/19 24 07/30/2023 CBC WITH DIFFE RENTI AL/PL ATELE T baso (absolute) 0.1 x10e3 /uL 0.0-0. 2 Not Available [facility] [address] [place], [address], 07/31/2023 06:17:08 07/30/19 24 07/30/2023 CBC WITH DIFFE RENTI AL/PL ATELE T immature granulocytes 0.3 % notest b. Not Available [facility] [address] [place], [address], 07/31/2023 06:17:08 07/30/19 24 07/30/2023 CBC WITH DIFFE RENTI AL/PL ATELE T immature grans (abs) 0.0 x10e3 /uL 0.0-0. 1 Not Available [facility] [address] [place], [address], 07/31/2023 06:17:08 07/30/19 24 07/30/2023 CBC WITH DIFFE RENTI AL/PL ATELE T NRBC 0 % 0-0 Not Available [facility] [address] [place], [address], 07/31/2023 06:17:08 05/07/07/31/2023 ALBUM IN/CR EATIN INE RATIO ,URIN E creatinine, urine 96.1 mg/dL notest ab. Not Available [facility] ([facility]) [address] [place], [address], 07/31/2023 10:13:35 07/30/19 24 07/31/2023 ALBUM IN/CR EATIN INE RATIO ,URIN E albumin, urine 85.3 ug/mL notest ab. Not Available [facility] ([facility]) [address] [place], [address], 07/31/2023 10:13:35 07/30/19 24 07/31/2023 ALBUM IN/CR EATIN INE RATIO ,URIN E alb/creat ratio 89 mg/g_ creat 0-29 above high normal Carmella l: 0 - 29 Moder ately incre ased: 30 - 300 Sever ant incre ased: >300 Not Available [facility] ([facility]) [address] [place], [address], 07/31/2023 10:13:35 07/30/19 24 07/31/2023 HEMOG LOBIN A1C hemoglobin A1C 6.0 % 4.8-5. 6 above high normal Predi abete s: 5.7 - 6.4 Diabe karissa: >6.4 Glyce tere contr ol for adult s with diabe karissa: <7.0 Not Available [facility] ([facility]) [address] [place], [address], 07/31/2023 10:13:36 01/08/20 24 01/09/2024 HEMOG LOBIN A1C hemoglobin A1C 5.8 % 4.8-5. 6 above high normal Predi abete s: 5.7 - 6.4 Diabe karissa: >6.4 Glyce tere contr ol for adult s with diabe karissa: <7.0 Not Available [facility] ([facility]) [address] [place], [address], 01/09/2024 06:23:22 01/08/2001/08/2024 LIPID PANEL cholesterol, total 157 mg/dL 100-19 9 Not Available [facility] [address] [place] [address], [address], 01/09/2024 06:24:13 01/08/2001/08/2024 LIPID PANEL triglyceride s 195 mg/dL 0-149 above high normal Not Available [facility] [address] [place] [address], [address], 01/09/2024 06:24:13 01/08/2001/08/2024 LIPID PANEL HDL cholesterol 58 mg/dL 40-999 Not Available [facility] [address] [place] [address], [address], 01/09/2024 06:24:13 01/08/2001/08/2024 LIPID PANEL VLDL cholesterol viridiana 39 mg/dL 5-[address] [facility] [address] [place] [address], [address], 01/09/2024 06:24:13 01/08/2001/08/2024 LIPID PANEL LDL chol calc (nih) 90 mg/dL 0-99 Not Available [facility] [address] [place] [address], [address], 01/09/2024 06:24:13 01/08/2001/08/2024 COMP. METAB OLIC PANEL (14) glucose 88 mg/dL 70-99 Not Available [facility] [address] [place], [address], 01/09/2024 06:24:14 01/08/2001/08/2024 COMP. METAB OLIC PANEL (14) BUN 41 mg/dL 8-27 above high normal Not Available [facility] [address] [place], [address], 01/09/2024 06:24:14 01/08/20 24 01/08/2024 COMP. METAB OLIC PANEL (14) creatinine 1.52 mg/dL 0.76-1 .27 above high normal Not Available [facility] [address] [place], [address], 01/09/2024 06:24:14 01/08/20 24 01/08/2024 COMP. METAB OLIC PANEL (14) eGFR 37 >=60 below low normal Units for eGFR value s are mL/mi n/1.7 3 The eGFR Calcu latio n has not been valid ated for patie nts under the age of 18. If test resul ts are displ ayed for a patie nt under the age of 18, disre enrique that value . Not Available [facility] [address] [place] [address], [address], 01/09/2024 06:24:14 01/08/20 24 01/08/2024 COMP. METAB OLIC PANEL (14) BUN/creatini ne ratio 27 10-[address] [facility] [address] [place], [address], 01/09/2024 06:24:14 01/08/20 24 01/08/2024 COMP. METAB OLIC PANEL (14) sodium 142 mmol/ L 134-14 4 Not Available [facility] [address] [place], [address], 01/09/2024 06:24:14 01/08/20 24 01/08/2024 COMP. METAB OLIC PANEL (14) potassium 4.8 mmol/ L 3.5-5. 2 Not Available [facility] [address] [place], [address], 01/09/2024 06:24:14 01/08/20 24 01/08/2024 COMP. METAB OLIC PANEL (14) chloride 101 mmol/ L 96-106 Not Available [facility] [address] [place] [address], [address], 01/09/2024 06:24:14 01/08/20 24 01/08/2024 COMP. METAB OLIC PANEL (14) carbon dioxide, total 29 mmol/ L 20-29 Not Available [facility] [address] [place], [address], 01/09/2024 06:24:14 01/08/20 24 01/08/2024 COMP. METAB OLIC PANEL (14) calcium 10.2 mg/dL 8.7-10 .3 Not Available [facility] [address] [place], [address], 01/09/2024 06:24:14 01/08/2001/08/2024 COMP. METAB OLIC PANEL (14) protein, total 7.6 g/dL 6.0-8. 5 Not Available [facility] [address] [place], [address], 01/09/2024 06:24:14 01/08/20 24 01/08/2024 COMP. METAB OLIC PANEL (14) albumin 4.2 g/dL 3.8-4. 8 Not Available [facility] [address] [place], [address], 01/09/2024 06:24:14 01/08/20 24 01/08/2024 COMP. METAB OLIC PANEL (14) globulin, total 3.4 g/dL 1.5-4. 5 Not Available [facility] [address] [place], [address], 01/09/2024 06:24:14 01/08/20 24 01/08/2024 COMP. METAB OLIC PANEL (14) A/G ratio 1.0 1.2-2. 2 below low normal Not Available [facility] [address] [place], [address], 01/09/2024 06:24:14 01/08/20 24 01/08/2024 COMP. METAB OLIC PANEL (14) bilirubin, total 0.3 mg/dL 0.0-1. 2 Not Available [facility] [address] [place], [address], 01/09/2024 06:24:14 01/08/2001/08/2024 COMP. METAB OLIC PANEL (14) alkaline phosphatase 36 IU/L 44-121 below low normal Not Available [facility] [address] [place], [address], 01/09/2024 06:24:14 01/08/20 24 01/08/2024 COMP. METAB OLIC PANEL (14) AST (SGOT) 20 IU/L 0-40 Not Available [facility] [address] [place], [address], 01/09/2024 06:24:14 01/08/20 24 01/08/2024 COMP. METAB OLIC PANEL (14) ALT (SGPT) 20 IU/L 0-32 Not Available [facility] [address] [place], [address], 01/09/2024 06:24:14 01/08/2001/08/2024 CBC WITH DIFFE RENTI AL/PL ATELE T WBC 7.7 x10e3 /uL 3.4-10 .8 Not Available [facility] [address] [place], [address], 01/09/2024 06:24:16 01/08/2001/08/2024 CBC WITH DIFFE RENTI AL/PL ATELE T RBC 5.17 x10e6 /uL 3.77-5 .28 Not Available [facility] [address] [place], [address], 01/09/2024 06:24:16 01/08/20 24 01/08/2024 CBC WITH DIFFE RENTI AL/PL ATELE T hemoglobin 14.5 g/dL 11.1-1 5.9 Not Available [facility] [address] [place], [address], 01/09/2024 06:24:16 01/08/2001/08/2024 CBC WITH DIFFE RENTI AL/PL ATELE T hematocrit 45.8 % 34.0-4 6.6 Not Available [facility] [address] [place], [address], 01/09/2024 06:24:16 01/08/2001/08/2024 CBC WITH DIFFE RENTI AL/PL ATELE T MCV 89 fL 79-97 Not Available [facility] [address] [place], [address], 01/09/2024 06:24:16 01/08/2001/08/2024 CBC WITH DIFFE RENTI AL/PL ATELE T MCH 28.0 pg 26.6-3 3.0 Not Available [facility] [address] [place], [address], 01/09/2024 06:24:16 01/08/2001/08/2024 CBC WITH DIFFE RENTI AL/PL ATELE T MCHC 31.7 g/dL 31.5-3 5.7 Not Available [facility] [address] [place], [address], 01/09/2024 06:24:16 01/08/2001/08/2024 CBC WITH DIFFE RENTI AL/PL ATELE T RDW 13.3 % 11.5-1 4.5 Not Available [facility] [address] [place], [address], 01/09/2024 06:24:16 01/08/2001/08/2024 CBC WITH DIFFE RENTI AL/PL ATELE T platelets 317 x10e3 /uL 150-45 0 Not Available [facility] [address] [place], [address], 01/09/2024 06:24:16 01/08/2001/08/2024 CBC WITH DIFFE RENTI AL/PL ATELE T neutrophils 63 % notest b. Not Available [facility] [address] [place], [address], 01/09/2024 06:24:16 01/08/2001/08/2024 CBC WITH DIFFE RENTI AL/PL ATELE T lymphs 20 % notest b. Not Available [facility] [address] [place], [address], 01/09/2024 06:24:16 01/08/2001/08/2024 CBC WITH DIFFE RENTI AL/PL ATELE T monocytes 7 % notest b. Not Available [facility] [address] [place], [address], 01/09/2024 06:24:16 01/08/2001/08/2024 CBC WITH DIFFE RENTI AL/PL ATELE T eos 9 % notest b. Not Available [facility] [address] [place], [address], 01/09/2024 06:24:16 01/08/2001/08/2024 CBC WITH DIFFE RENTI AL/PL ATELE T basos 1 % notest b. Not Available [facility] [address] [place], [address], 01/09/2024 06:24:16 01/08/2001/08/2024 CBC WITH DIFFE RENTI AL/PL ATELE T neutrophils (absolute) 4.8 x10e3 /uL 1.4-7. 0 Not Available [facility] [address] [place], [address], 01/09/2024 06:24:16 01/08/2001/08/2024 CBC WITH DIFFE RENTI AL/PL ATELE T lymphs (absolute) 1.5 x10e3 /uL 0.7-3. 1 Not Available [facility] [address] [place], [address], 01/09/2024 06:24:16 01/08/20 24 01/08/2024 CBC WITH DIFFE RENTI AL/PL ATELE T monocytes(ab solute) 0.6 x10e3 /uL 0.1-0. 9 Not Available [facility] [address] [place], [address], 01/09/2024 06:24:16 01/08/2001/08/2024 CBC WITH DIFFE RENTI AL/PL ATELE T eos (absolute) 0.7 x10e3 /uL 0.0-0. 4 above high normal Not Available [facility] [address] [place], [address], 01/09/2024 06:24:16 01/08/20 24 01/08/2024 CBC WITH DIFFE RENTI AL/PL ATELE T baso (absolute) 0.1 x10e3 /uL 0.0-0. 2 Not Available [facility] [address] [place], [address], 01/09/2024 06:24:16 01/08/2001/08/2024 CBC WITH DIFFE RENTI AL/PL ATELE T immature granulocytes 0.3 % notest b. Not Available [facility] [address] [place], [address], 01/09/2024 06:24:16 01/08/2001/08/2024 CBC WITH DIFFE RENTI AL/PL ATELE T immature grans (abs) 0.0 x10e3 /uL 0.0-0. 1 Not Available [facility] [address] [place], [address], 01/09/2024 06:24:16 01/08/20 24 01/08/2024 CBC WITH DIFFE RENTI AL/PL ATELE T NRBC 0 % 0-0 Not Available [facility] [address] [place], [address], 01/09/2024 06:24:16 08/16/19 24 08/15/2023 MAMMO , scree phyllis, bilat eral No observ ation record ed. [facility] [address], [place], [address], 08/23/2023 14:38:52 01/21/20 24 01/20/2024 US, renal No observ ation record ed. [facility] [address], [place], [address], 01/22/2024 09:56:37 04/13/1904/13/2024 MR, angio gram, abdom en, w/wo contr ast No observ ation record ed. [place] [id number] [facility] [address], [place], [address], 04/15/2024 09:10:04 Result Notes None recorded. Problems Name Problem SNOMED Code Status Onset Date Resolution Date Notes Provider Name and Address Organization Details Recorded Time Serum creatinin e outside reference range 772756162 Active 2017 Ceasar Matthews PA-C Attn: Kvng puente,[address] [place], [address], [facility] 8 16:14:23 Constipat ion 45828071 Active 2017 Ceasar Matthews PA-C Attn: Kvng puente,[address] [place], [address], [facility] 8 12:52:20 Hallux valgus 695521208 Active 2018 right worse than left Ceasar Matthews PA-C Attn: Kvng puente,[address] [place], [address], [facility] 2 12:49:33 Screening for malignant neoplasm of breast Active 2019 Ceasar Matthews PA-C Attn: Kvng puente,[address] [place], [address], [place] [facility] 0 11:52:50 Mammograp hic mass of right breast 795892260316 20820 Active 2019 Ceasar Matthews PA-C Attn: Accountin g,[address] [facility], [place], [address], [place] [facility] 0 14:18:36 Carcinoma of female breast 837996392 Active 2019 Grade 2 invasive lobular carcinoma , upper/out er R breast Ceasar Matthews PA-C Attn: Accountin g,[address] [facility], [place], [address], [place] [facility] 0 15:49:49 At increased risk of nutrition al deficit 612766457 Active 2020 Ceasar Matthews PA-C Attn: Accountin g,[address] [facility], [place], [place], [address] [place] [address] 2, [place] [facility] 1 11:13:49 Hyperlipi demia 01852678 Active 2020 Ceasar Matthews PA-C Attn: Accountin g,[address] [facility], [place], [place], [address] [place] [address] 2, [place] [facility] 1 16:27:47 Osteopeni a 471808499 Active 2020 Ceasar Matthews PA-C Attn: Accountin g,[address] [facility], [place], [place], [address] [place] [address] 2, [place] [facility] 1 13:55:45 Knee pain Active Ceasar Matthews PA-C Attn: Accountin g,[address] [facility], [place], [address], [place] [facility] 6 12:48:55 Hypertens edward disorder 49905992 Active Ceasar Matthews PA-C Attn: Accountin g,[address] [facility], [place], [address], [place] [facility] 6 12:49:15 Hip pain 35518593 Active Ceasar Matthews PA-C Attn: Accountin g,[address] [facility], [place], [address], [place] [facility] 6 15:31:46 Dyslipide rom 877376510 Active Ceasar Matthews PA-C Attn: Accountraciel g,[address] [facility], [place], [address], [place] [facility] 6 12:49:15 Cough 40149542 Active Damon Hol[place], [place] [facility] 6 17:17:33 HIV screening Active 2021 Ceasar Matthews PA-C Attn: Accountin g,[address] [facility], [place], [address], [place] [facility] 2 14:30:55 Essential hypertens ion 47892923 Active 2023 Lex Garcia [place] null, [place] [facility] 4 12:43:46 Chronic kidney disease stage 3 738231353 Active 2024 Sourav Frye MD Attn: Accountraciel g,[address] [facility], [place], [address], [place] [facility] 5 17:27:12 Uncontrol led type 2 diabetes mellitus 698083123 Active Ceasar Matthews PA-C Attn: Accountin g,[address] [facility], [place], [address], [place] [facility] 6 12:49:15 Hernia of abdominal cavity 75140514 Active Damon [place] [facility] 6 17:17:33 Diastasis recti 43565053 Active Dam[place] [facility] 6 17:17:33 Bacterial vaginosis 426543971 Active Chente Dominguez RN [place] [facility] 6 10:04:25 Sinusitis 10615784 Active Ceasar Matthews PA-C Attn: Accountin g,[address] [facility], [place], [address], [place] [facility] 6 12:49:15 Acute sinusitis 61410897 Active 2016 Ceasar Matthews PA-C Attn: Kvng puente,[address] [facility], [place], [address], [place] [facility] 7 14:42:14 Type 2 diabetes mellitus 27900339 Active 2016 Ceasar Matthews PA-C Attn: Kvng puente,[address] [facility], [place], [address], [place] [facility] 7 10:34:36 Screening for malignant neoplasm of colon Active 2016 Ceasar Matthews PA-C Attn: Kvng puente,[address] [facility], [place], [address], [place] [facility] 7 10:47:34 Obese 351729934 Active 2016 Ceasar Matthews PA-C Attn: Kvng puente,[address] [facility], [place], [address], [place] [facility] 7 12:41:06 Problem Notes None recorded. Procedures Surgical History Date Name Laterality Status Provider Name and Address Organization Details Recorded Time 6 Date of Last Pap Smear completed Lynnette Van MA [facility] 07/23/2017 10:08:54 5 Most Recent Mammogram completed Lynnette Van MA [facility] 04/15/2015 15:01:21 Caesarean Section completed Lynnette Van MA [facility] 07/23/2017 10:28:27 Other completed Lynnette Van MA [facility] 07/23/2017 10:29:25 Caesarean Section completed Nichelle Hayes MA [facility] 05/13/2014 14:33:53 Imaging Results Imaging Date Name Status LastModified by Organiz ation Details LastModified Time 08/15/2023 MAMMO, screening, bilateral completed [address] [place] [address], [address], 08/23/2023 14:38:52 01/20/2024 US, renal completed [address], [place], [address], 01/22/2024 09:56:37 04/13/2024 MR, angiogram, abdomen, w/wo contrast completed [facility] [address], [place], [address], 04/15/2024 09:10:04 Procedure Notes None recorded. Medical Equipment None Reported. Allergies No known drug allergies Medications Name Sig Start Date Stop Date Status Note LastModified by Organization Details LastModified Time lisinopril tab 10mglisinop ril active Not Available Not Available Not Available lovastatin tab 20mglovasta tin 05/07 completed Not Available Not Available Not Available benzonatate 200 mg caps active Not Available Not Available Not Available freestyle mis lite 05/07 completed Not Available Not Available Not Available gnp alcohol swabs 70 % pads 05/07 completed Not Available Not Available Not Available ciprofloxac n tab 500mgciprof loxacin hcl active Not Available Not Available Not Available lancets twist top misc 05/07 completed Not Available Not Available Not Available lovastatin 20 mg tabs 05/07 completed Not Available Not Available Not Available metformin hcl 500 mg tabs 05/07 completed Not Available Not Available Not Available losartan potassium 50 mg tabs 01/31 completed Not Available Not Available Not Available benzonatate cap 200mgbenzon atate active Not Available Not Available Not Available freestyle karissa lite 05/07 completed Not Available Not Available Not Available lisinopril 10 mg tabs active Not Available Not Available N ot Available losartan 50 mg tablet TAKE 1 TABLET BY MOUTH ONCE DAILY active Not Available Not Available No t Available metformin 500 mg tablet TAKE 1 TABLET BY MOUTH TWICE DAILY active Not Available Not Available No t Available anastrozole 1 mg tablet TAKE 1 TABLET BY MOUTH ONCE DAILY active Not Available Not Available No t Available benzonatate 200 mg capsule Take 1 capsule 3 times a day by oral route as needed for 10 days. active Not Available Not Available No t Available hydrocodone 5 mg-acetamin ophen 325 mg tablet 08/19 completed Not Available Not Available Not Available metronidazo le 500 mg tablet Take 1 tablet twice a day by oral route for 5 days. 05/07 completed Not Available Not Available Not Available ciprofloxac in 500 mg tablet Take 1 tablet every 12 hours by oral route for 10 days. 05/07 completed Not Available Not Available Not Available tramadol 50 mg tablet 05/07 completed Not Available Not Available Not Available ketorolac 10 mg tablet 07/22 completed Not Available Not Available Not Available oxycodone-a cetaminophe n 5 mg-325 mg tablet 05/07 completed Not Available Not Available Not Available benzonatate 100 mg capsule Take 2 capsules 3 times a day by oral route for 10 days. active Not Available Not Available No t Available lisinopril 10 mg tablet Take 1 tablet every day by oral route in the morning for 30 days. active Not Available Not Available No t Available bisacodyl 5 mg tablet,irina yed release Take 3 tablets every day by oral route as needed for 3 days. 09/05 completed Not Available Not Available Not Available alcohol swabs USE TO CHECK BLOOD SUGAR once daily active Not Available Not Available No t Available lovastatin 20 mg tablet TAKE 1 TABLET BY MOUTH ONCE DAILY IN THE EVENING 2024 active Not Available Not Available Not Avai lable naproxen 500 mg tablet Take 1 tablet twice a day by oral route with meals for 30 days. 07/23 completed Not Available Not Available Not Available omega-3 acid ethyl esters 1 gram capsule active Not Available Not Available Not Available OneTouch UltraMini kit 05/07 completed Not Available Not Available Not Available Januvia 100 mg tablet TAKE 1 TABLET BY MOUTH ONCE DAILY IN THE MORNING active Not Available Not Available No t Available calcium 600 mg (as carbonate)- vitamin D3 10 mcg (400 unit) tablet TAKE 1 TABLET BY MOUTH TWICE DAILY WITH MEALS 2024 active Not Available Not Available Not Avai lable peg 3350 240 gram-electr olytes 22.72 gram-6.72 g-5.84 g powdr for soln 06/21 completed Not Available Not Available Not Available fenofibrate 120 mg tablet Take 1 tablet every day by oral route after meals for 90 days. 02/02 completed Not Available Not Available Not Available GaviLyte-G 236 gram-22.74 gram-6.74 gram-5.86 gram oral solution active Not Available Not Available Not Available omega 3-dha-epa-f jhon oil 1,000 mg (120 mg-180 mg) capsule Take 1 capsule twice a day by oral route with meals for 90 days. 09/06 completed cost to much Not Available Not Available Not Available B12 active Not Available Not Availa ble Not Available Suprep Bowel Prep Kit 17.5 gram-3.13 gram-1.6 gram oral solution Take 354 mL by oral route for 1 day. 06/21 completed Not Available Not Available Not Available OneTouch Verio test strips TEST TWICE DAILY. active Not Available Not Available No t Available lancets 30 gauge active Not Available Not Available Not Available Safety Seal Lancets 28 gauge USE DIRECTED active Not Available Not Available No t Available Farxiga 5 mg tablet Take 1 tablet by mouth once daily 2024 active Not Available Not Available Not Avai lable True Metrix Air Glucose Meter DIRECTED, test twice per day 2018 active Not Available Not Available Not Avai lable OneTouch Ultra Blue Test Strip USE DIRECTED, test twice per day per fingersti ck 2018 active Not Available Not Available Not Avai lable OneTouch Delica Plus Lancet 33 gauge USE 1 TO CHECK GLUCOSE ONCE DAILY active Not Available Not Available No t Available Vitals Date Recorded Body height Body mass index (BMI) Body weight Heart rate Oxygen saturation Oxygen saturation in Arterial blood by Pulse oximetry Systolic blood pressure Diastolic blood pressure Provider Name and Address Organization Details Last Updated DateTime 3 152.4 cm 27.3 kg/m2 10411.9 3 g 78 /min 97 % 97 % 120 mm[Hg] 78 mm[Hg] Lilo Barbosa MA [facility] 3 12:10:55 Date Recorded Body height Body mass index (BMI) Body weight Heart rate Oxygen saturation Oxygen saturation in Arterial blood by Pulse oximetry Systolic blood pressure Diastolic blood pressure Provider Name and Address Organization Details Last Updated DateTime 4 152.4 cm 27.3 kg/m2 53002.9 3 g 91 /min 99 % 99 % 121 mm[Hg] 66 mm[Hg] Lilo Barbosa MA [facility] 4 12:13:45 Date Recorded Body height Body mass index (BMI) Body weight Heart rate Oxygen saturation Oxygen saturation in Arterial blood by Pulse oximetry Systolic blood pressure Diastolic blood pressure Provider Name and Address Organization Details Last Updated DateTime 4 152.4 cm 26.6 kg/m2 94885.9 2 g 68 /min 98 % 98 % 132 mm[Hg] 74 mm[Hg] Marifer Lawton MA [facility] 4 12:04:12 Date Recorded Body height Body mass index (BMI) Body weight Heart rate Oxygen saturation Oxygen saturation in Arterial blood by Pulse oximetry Systolic blood pressure Diastolic blood pressure Provider Name and Address Organization Details Last Updated DateTime 4 152.4 cm 25.6 kg/m2 60423.6 g 77 /min 96 % 96 % 138 mm[Hg] 68 mm[Hg] Loulou Paredes MA [facility] 4 15:00:17 Date Recorded Body height Body mass index (BMI) Body weight Heart rate Oxygen saturation Oxygen saturation in Arterial blood by Pulse oximetry Systolic blood pressure Diastolic blood pressure Provider Name and Address Organization Details Last Updated DateTime 5 152.4 cm 25.4 kg/m2 75801.0 1 g 82 /min 96 % 96 % 120 mm[Hg] 60 mm[Hg] Meg Knapp MA [facility] 5 14:32:29 Social History Question Answer Notes LastModified by Organizat ion Details LastModified Time Tobacco Smoking Status Never Smoker Nichelle Hayes MA [facility], [facility] 05/13/2014 14:33:53 Do You Have An Advance Directive? No Information n ot available 05/13/2014 What Is Your Level Of Alcohol Consumption? None Information not available 05/13/2014 Are You Blind Or Do You Have Difficulty Seeing? No Information n ot available 05/13/2014 Is Blood Transfusion Acceptable In An Emergency? Yes Information not available 04/15/2015 What Is Your Level Of Caffeine Consumption? Moderate Information not available 05/13/2014 How Much Tobacco Do You Chew? None Information not available 05/13/2014 In The 14 Days Before Symptom Onset, Have You Had Close Contact With A Laboratory-confirm ed COVID-19 While That Case Was Ill? No Information n ot available 08/19/2020 In The 14 Days Before Symptom Onset, Have You Had Close Contact With A Person Who Is Under Investigation For COVID-19 While That Person Was Ill? No Information not available 08/19/2020 Have You Been To An Area Known To Be High Risk For COVID-19? Yes Information not available 08/19/2020 Are You Currently Employed? No Information not available 04/15/2015 Are You Deaf Or Do You Have Serious Difficulty Hearing? No Information not available 05/13/2014 What Type Of Diet Are You Following? REGULAR Information n ot available 05/13/2014 Which Illicit Or Recreational Drugs Have You Used? 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 No Information not available 05/13/2014 Hard Of Hearing Or Deaf In One Or Both Ears? No Information not available 05/13/2014 Legally Blind In One Or Both Eyes? No Information no t available 05/13/2014 Live Alone Or With Others? With Others Information not available 04/15/2015 Marital Status Informatio n not available 05/13/2014 What Was The Date Of Your Most Recent Tobacco Screening? 04/15/2024 Information not available 04/15/2024 How Many Children Do You Have? 2 Information not available 04/15/2015 Performs Monthly Self-breast Exam? Yes Information no t available 05/13/2014 Do You Use Protection During Sex? No Information not available 04/15/2015 What Is Your Relationship Status? Information not available 04/15/2015 Do You Use Your Seat Belt Or Car Seat Routinely? Yes Information not available 06/21/2020 Seat Belts Used Routinely Yes Information not available 05/13/2014 Are You Sexually Active? Yes Information not available 04/15/2015 Smoke Alarm In Home Yes Information not available 05/13/2014 Do You Have Smoke And Carbon Monoxide Detectors In Your Home? Yes Information not available 06/21/2020 Are You Passively Exposed To Smoke? No Information no t available 06/21/2020 How Much Tobacco Do You Smoke? No Information not available 05/13/2014 General Stress Level Medium Information not available 05/13/2014 Do You Feel Stressed (tense, Restless, Nervous, Or Anxious, Or Unable To Sleep At Night)? [id number] Information not available 06/21/2020 Do You Use Any Illicit Or Recreational Drugs? No Information not available 07/21/2020 Do You Use Sunscreen Routinely? No Information not available 05/13/2014 On What Date Was Tobacco Cessation Counseling Provided? 04/15/2024 Information not available 04/15/2024 Sex: Female Functional Status Question Answer Note LastModified by Organization D etails LastModified Time Do you have difficulty walking or climbing stairs? Yes Information not available 05/13/2014 Do you have difficulty doing errands alone? No Information not available 05/13/2014 Are you able to care for yourself? Yes Information n ot available 06/21/2020 Do you have difficulty dressing or bathing? No Information not available 05/13/2014 What is your exercise level? None Information not available 05/13/2014 Mental Status Question Answer Note LastModified by Organization D etails LastModified Time Do you have difficulty concentrating, remembering or making decisions? Yes Information no t available 05/13/2014 Family History Relationship Description Onset Age of this Age Resolved Age Notes LastModified by Organization Details LastModified Time Father Malignant tumor of colon 74 [email or web address] Not available 2015 17:17:43 Mother Heart disease 48 [email or web address] Not available 2015 17:17:43 Mother Diabetes mellitus 48 [email or web address] Not available 2015 17:17:43 Mother Hypertensive disorder [email or web address] Not available 2015 17:17:43 Medical History Condition Response Other Y High Blood Pressure Y Breast Cancer N Thyroid Problems N Kidney or Bladder Problems N GI Problems N Depression N Blood Clots N Lung Disease N Acne N Breast Problem N Eating Disorder N Anemia N Anesthesia Complications N Headaches/Migraines N Anxiety Disorder N Diabetes Y Ovarian Cancer N Muscle, Joint, or Bone Problems N Blood Transfusions N Seizures/Epilepsy N Polyps N Infertility N Acid Reflux (GERD) N Cancer N Abuse/Domestic Violence N Asthma N Endometriosis N High Cholesterol Y Hepatitis N Liver Disease N Heart Disease N Pre-Eclampsia N Osteoporosis N Gynecological History Statement/Question Response Abnormal Pap N On BCP's at Conception? N STIs/STDs N HPV Vaccine N Most Recent Mammogram 01/23/2015 Age at Menarche 11 Current Control Method None Age at First Child 29 Sexually Active? Y Menses Monthly N Date of Last Pap Smear 04/15/2015 Sexual Problems? N Desired Control Method None Obstetrics History GPAL:G 2 P 2 0 0 2 Type Value Full Term 2 Living 2 Total 2 Immunizations Vaccine Type Date Status Note Provider Nam e and Address Organization Details Recorded Time COVID-19, mRNA, LNP-S, PF, 100 mcg/0.5mL dose or 50 mcg/0.25mL dose 11/29/2020 completed J[place]EM[place], [place] [facility] 04/15/2024 09:45:06 COVID-19, mRNA, LNP-S, PF, 100 mcg/0.5mL dose or 50 mcg/0.25mL dose 12/27/2020 J[place]EM[place], [place] [facility] 04/15/2024 09:45:06 COVID-19, mRNA, LNP-S, PF, 30 mcg/0.3 mL dose 11/29/2020 ovidio Knapp [place], [place] [facility] 04/15/2024 09:45:06 COVID-19, mRNA, LNP-S, PF, 30 mcg/0.3 mL dose 12/27/2020 JEREMIAH [place], [place] [facility] 04/15/2024 09:45:06 Past Encounters Encounter ID Performer Location Encounter Start Date Encounter Closed Date Diagnosis/Indication Diagnosis SNOMED-CT Code Diagnosis ICD10 Code Diagnosis Note [id number] Aminta (Adult Med) [address] [place] [id number] 05/13/2014 14:18:45 05/13/2014 14:53:24 Dyslipidemia 525478304 Hip pain 04617728 Hypertensive disorder 83538613 Knee pain 68167602 Cough 08488539 [id number] Aminta (Adult Med) [address] [place] [id number] 09/10/2014 11:25:14 09/10/2014 17:24:33 Cough 78351697 Dyslipidemia 594946025 Hip pain 96027420 Hypertensive disorder 89829363 Knee pain 47269006 Impaired g lucose tolerance 7481874 [id number] Aminta (Adult Med) [address] [place] [id number] 11/19/2014 10:44:02 11/19/2014 15:45:20 Uncontrolled type 2 diabetes mellitus 538408269 Dyslipidemia 832678858 Hypertensive disorder 14826499 Knee pain 26297931 [id number] Aminta (Adult Med) [address] [place] [id number] 01/21/2015 10:51:54 01/21/2015 11:33:08 Dyslipidemia 083549861 E78.5 Hip pain 31099789 M25.55 9 Hypertensive disorder 38 017053 I10 Uncontroll ed type 2 diabetes mellitus 788543674 E11.65 Hernia of abdominal cavity 34030437 K46.9 above umbilicus for 24 years Cough 47006901 R05 [id number] MONICA Pappas (Adult Med) [address] [place] [id number] 03/24/2015 10:06:10 03/24/2015 10:48:21 Diastasis recti 72282661 M62.08 Uncontroll ed type 2 diabetes mellitus 573220732 E11.65 Hip pain 74906712 M25.55 9 [id number] Damon Lemos (EDUCATIONAL [employer] LANG[employer]AGE INTERPRETER) [address] [place] [id number] 04/15/2015 14:47:18 04/15/2015 17:18:10 Gynecologic examination 17846019 Z01.419 Z11.51 Venereal d isease screening 570406085 Z11.3 [id number] MONICA Pappas (Adult Med) [address] [place] [id number] 05/26/2015 14:42:03 05/27/2015 17:14:53 Dyslipidemia 377880526 E78.5 Hip pain 59687148 M25.55 9 Uncontroll ed type 2 diabetes mellitus 929907028 E11.65 [id number] MONICA Pappas (Adult Med) [address] [place] [id number] 07/28/2015 15:29:46 07/28/2015 16:20:25 Dyslipidemia 875377036 E78.5 Hypertensive disorder 38 177832 I10 Uncontroll ed type 2 diabetes mellitus 894323484 E11.65 [id number] MONICA Pappas (Adult Med) [address] [place] [id number] 11/24/2015 12:24:14 11/24/2015 12:51:31 Sinusitis 85486265 J32.9 Uncontroll ed type 2 diabetes mellitus 622733353 E11.65 Hypertensive disorder 38 840144 I10 Dyslipidemia 290031429 E 78.5 [id number] MONICA Pappas (Adult Med) [address] [place] [id number] 04/12/2016 14:13:09 04/17/2016 13:00:09 Acute sinusitis 28685207 J01.90 Uncontroll ed type 2 diabetes mellitus 721800203 E11.65 Dyslipidemia 571123877 E 78.5 Hypertensive disorder 38 804757 I10 Cough 41789957 R05 [id number] MONICA Pappas (Adult Med) [address] [place] [address] [id number] 06/11/2016 09:47:36 06/11/2016 10:51:52 Type 2 diabetes mellitus 49874638 E11.9 Dyslipidemia 632925931 E 78.5 Hypertensive disorder 38 871722 I10 Uncontroll ed type 2 diabetes mellitus 626006138 E11.65 Screening for malignant neoplasm of colon 552847148 Z12.11 [id number] MONICA Pappas (Adult Med) [address] [place] [id number] 08/13/2016 12:00:00 08/13/2016 12:38:23 Uncontrolled type 2 diabetes mellitus 022772662 E11.65 Screening for malignant neoplasm of colon 194124297 Z12.11 Hypertensive disorder 38 375577 I10 Dyslipidemia 324388233 E 78.5 Type 2 miroslava betes mellitus 00802738 E11.9 [id number] MONICA Pappas (Adult Med) [address] [place] [id number] 10/17/2016 10:26:18 10/17/2016 17:56:25 Dyslipidemia 585872400 E78.5 Hypertensive disorder 38 363879 I10 Uncontroll ed type 2 diabetes mellitus 476903747 E11.65 Obese 248506323 E66.9 [id number] MONICA Pappas (Adult Med) [address] [place] [id number] 12/21/2016 12:24:54 12/21/2016 15:05:19 Type 2 diabetes mellitus 77758306 E11.9 Dyslipidemia 843191365 E 78.5 [id number] MONICA Pappas (Adult Med) [address] [place] [id number] 03/05/2017 11:34:22 03/05/2017 12:14:58 Type 2 diabetes mellitus 44380255 E11.9 Dyslipidemia 140896823 E 78.5 Obese 547927029 E66.9 Hypertensive disorder 38 709485 I10 Bacterial vaginosis 4197 26291 N76.0 [id number] MONICA Pappas (Adult Med) [address] [place] [address] [id number] 05/07/2017 11:36:37 05/07/2017 12:15:49 Type 2 diabetes mellitus 40258538 E11.9 Dyslipidemia 618126294 E 78.5 Hypertensive disorder 38 067019 I10 Hip pain 75947917 M25.55 9 [id number] MONICA Pappas (Adult Med) [address] [place] [address] [id number] 07/02/2017 10:29:11 07/02/2017 11:12:20 Uncontrolled type 2 diabetes mellitus 709227463 E11.65 Type 2 miroslava betes mellitus 26325938 E11.9 Screening for malignant neoplasm of colon 326827266 Z12.11 Obese 957433613 E66.9 Dyslipidemia 487861221 E 78.5 [id number] MD Aminta Carcamo (EDUCATIONAL S[employer] LANGUAGE INTERPRETER) [address] [place] [address] [id number] 07/23/2017 09:55:47 07/23/2017 15:01:28 Gynecologic examination 30276805 Z01.411 Age appropriat e counseling done. Screening mammography 24 453267 Z12.31 Obese 902488951 E66.9 Counseled About weight loss, diet and excercise. Patient refused pathology secretary consult. Leukocytes in urine 2757 85733 R82.79 D/W PATIENT Hernia of anterior abdominal wall 704265189 K43.9 Patient say she see a surgeon for it. Advised to f/u. [id number] MONICA Pappas (Adult Med) [address] [place] [address] 04150-410 0 09/03/2017 15:47:32 09/03/2017 16:19:56 Serum creatinine outside reference range 843996012 R79.89 Obese 843172799 E66.9 Type 2 miroslava betes mellitus 81201505 E11.9 Dyslipidemia 092764664 E 78.5 Hypertensive disorder 38 671354 I10 [id number] MONICA Pappas (Adult Med) [address] [place] [address] 70119-070 0 11/04/2017 12:07:51 11/04/2017 13:00:10 Type 2 diabetes mellitus 83960427 E11.9 Dyslipidemia 867660184 E 78.5 Hypertensive disorder 38 432016 I10 Constipation 03332247 K5 9.00 Serum crea tinine outside reference range 185197435 R79.89 [id number] MONICA Pappas (Adult Med) [address] [place] [address] 95179-319 0 01/02/2018 12:19:43 01/02/2018 13:37:57 Type 2 diabetes mellitus 91560323 E11.9 Obese 553826829 E66.9 Dyslipidemia 647759761 E 78.5 Hypertensive disorder 38 041307 I10 Hip pain 85723385 M25.55 9 [id number] MONICA Pappas (Adult Med) [address] [place] [address] 57588-074 0 03/04/2018 13:54:21 03/04/2018 14:55:34 Essential hypertension 90461764 I10 Type 2 miroslava betes mellitus 01186397 E11.9 Dyslipidemia 324379417 E 78.5 Screening for malignant neoplasm of colon 183759367 Z12.11 [id number] MONICA Pappas (Adult Med) [address] [place] [address] 63900-880 0 05/06/2018 11:09:40 05/06/2018 12:29:52 Constipation 79695018 K59.00 Serum crea tinine outside reference range 640750383 R79.89 Obese 559505080 E66.9 Type 2 miroslava betes mellitus 32602659 E11.9 Dyslipidemia 454742092 E 78.5 Hip pain 02033353 M25.55 9 [id number] MONICA Pappas (Adult Med) [address] [place] [address] 49836-970 0 07/08/2018 14:27:04 07/08/2018 15:31:59 Type 2 diabetes mellitus 53940672 E11.9 Hallux valgus 878820110 M20.11 right worse than left Screening for malignant neoplasm of colon 395598120 Z12.11 Obese 262385245 E66.9 Dyslipidemia 006713131 E 78.5 Hypertensive disorder 38 630231 I10 Hip pain 39467283 M25.55 9 [id number] MONICA Pappas (Adult Med) [address] [place] [address] 82157-567 0 09/05/2018 13:47:22 09/05/2018 14:43:42 Type 2 diabetes mellitus 40945176 E11.9 Dyslipidemia 086000032 E 78.5 Hypertensive disorder 38 050476 I10 Obese 478412868 E66.9 Hip pain 89671615 M25.55 9 [id number] MONICA Pappas (Adult Med) [address] [place] [address] 72209-654 0 12/08/2018 10:53:42 12/09/2018 09:22:23 Type 2 diabetes mellitus 71710620 E11.9 Dyslipidemia 590002153 E 78.5 Screening for malignant neoplasm of colon 463190538 Z12.11 Hallux valgus 459229417 M20.11 right worse than left Obese 049429461 E66.9 Hypertensive disorder 38 932930 I10 Serum crea tinine outside reference range 766465384 R79.89 [id number] MONICA Pappas (Adult Med) [address] [place] [address] 30977-108 0 02/24/2019 10:32:27 02/25/2019 10:13:02 Type 2 diabetes mellitus 03203495 E11.9 Dyslipidemia 231495770 E 78.5 Hallux valgus 327282867 M20.11 right worse than left Hypertensive disorder 38 775606 I10 Obese 025401115 E66.9 [id number] MONICA Pappas (Adult Med) [address] [place] [address] 32078-117 0 04/27/2019 11:17:10 04/27/2019 11:58:57 Screening for malignant neoplasm of breast 747635869 Z12.39 Hypertensive disorder 38 682880 I10 Dyslipidemia 459084713 E 78.5 Type 2 miroslava betes mellitus 82268641 E11.9 Hip pain 80977321 M25.55 9 Obese 215390413 E66.9 [id number] MONICA Pappas (Adult Med) [address] [place] [address] 61535-600 0 02/01/2020 08:29:14 02/01/2020 16:43:43 Hypertensive disorder 66584244 I10 Dyslipidemia 219581135 E 78.5 Type 2 miroslava betes mellitus 24744910 E11.9 Carcinoma of female breast 847730076 C50.707 [id number] MONICA Pappas (Adult Med) [address] [place] [address] 25357-789 0 03/03/2020 08:02:53 03/04/2020 09:37:56 Dyslipidemia 330855116 E78.5 Hypertensive disorder 38 879510 I10 Hallux valgus 044818048 M20.11 right worse than left Knee pain 44459983 M25.5 69 Type 2 miroslava betes mellitus 79089896 E11.9 [id number] MONICA Pappas (Adult Med) [address] [place] [address] 53789-308 0 04/19/2020 08:08:22 04/19/2020 11:26:58 Constipation 77451382 K59.00 Dyslipidemia 976673981 E 78.5 Hallux valgus 730027186 M20.11 right worse than left Hip pain 39277736 M25.55 9 Hypertensive disorder 38 651309 I10 Obese 160207939 E66.9 Type 2 miroslava betes mellitus 46397944 E11.9 At counts include [facility] beds at [facility] risk of nutritional deficit 848852494 Z91.89 [id number] MONICA Pappas (Adult Med) [address] [place] [address] 92696-723 0 05/20/2020 08:01:28 05/20/2020 12:13:27 Type 2 diabetes mellitus 84627815 E11.9 Dyslipidemia 898220113 E 78.5 Hip pain 63541180 M25.55 9 Hyperlipidemia 43562851 E78.5 Hypertensive disorder 38 444811 I10 Osteopenia 099083572 M85 .80 [id number] MONICA Pappas (Adult Med) [address] [place] [address] 75504-382 0 06/21/2020 09:54:39 06/21/2020 11:57:18 Dyslipidemia 204443117 E78.5 Hip pain 27541269 M25.55 9 Hyperlipidemia 59716750 E78.5 Hypertensive disorder 38 018167 I10 Obese 348036311 E66.9 Osteopenia 550640512 M85 .80 Type 2 miroslava betes mellitus 53956167 E11.9 [id number] MONICA Pappas (Adult Med) [address] [place] [address] 75558-314 0 07/21/2020 08:04:04 07/21/2020 12:32:20 Type 2 diabetes mellitus 83069766 E11.9 Osteopenia 843223422 M85 .80 Obese 432042565 E66.9 Hyperlipidemia 10679378 E78.5 Hypertensive disorder 38 953131 I10 [id number] MONICA Pappas (Adult Med) [address] [place] [address] 80225-279 0 08/19/2020 15:47:47 08/23/2020 09:21:49 Type 2 diabetes mellitus 06759662 E11.9 Hyperlipidemia 96471741 E78.5 Hypertensive disorder 38 746831 I10 [id number] MONICA Pappas (Adult Med) [address] [place] [address] 34416-813 0 08/22/2021 11:56:42 08/22/2021 17:01:06 Type 2 diabetes mellitus 02616561 E11.9 Hyperlipidemia 29857798 E78.5 Hypertensive disorder 38 390944 I10 Hallux valgus 275477472 M20.11 right worse than left [id number] MONICA Pappas (Adult Med) [address] [place] [address] 95025-529 0 11/21/2021 14:13:19 11/22/2021 07:32:39 Hypertensive disorder 47721665 I10 Hyperlipidemia 25845569 E78.5 HIV screening 896674684 Z11.4 Osteopenia 210825526 M85 .80 Type 2 miroslava betes mellitus 54210943 E11.9 [id number] MD Aminta Gregg (Adult Med) [address] [place] [address] 42361-534 0 02/19/2022 15:09:51 02/23/2022 12:39:10 Overweight 383098954 E66.3 BMI is 27.3 she has been advised to watch her diabetic low salt , low animal fat diet, exercise and keep the weight down. Dyslipidemia 492799158 E 78.5 Low animal fat diet, on lovastatin . Hypertensive disorder 38 919254 I10 On low salt diet, Avoid NSAID or OTC decongesta nt if possible, on losartan., Will continue to monitor blood pressure, this is first visit with this provider. Type 2 miroslava betes mellitus 60768196 E11.9 Diabetic diet, on metformin, and januvia, has enough refills. Administra tion of pneumococcal vaccine 50347519 Z23 She refuses 02-19-2022 . Administra tion of diphtheria, pertussis, and tetanus vaccine 944925132 Z23 She refuses, 02-19-2022 . Administra tion of SARS-CoV-2 mRNA vaccine 6548807620 Z23 She refuses 02-19-2022 . History of malignant neoplasm of breast 477223700 Z85.3 Right breast, under the care of specialist . [id number] Hayden Alcazar MD [facility] (Adult Med) [address] [place] [address] 47508-378 0 06/27/2022 14:11:22 06/28/2022 15:03:44 Type 2 diabetes mellitus 48588066 E11.9 Diabetic diet, on metformin, and januvia, has enough refills. Essential hypertension 61154808 I10 BP as 06-27-22. is 134/80. low salt diet, Avoid NSAID, or OTC decongesta nt. med refill. Primary ma lignant neoplasm of female breast 70911866 C50.919 since 2019, on chemo therapy, under the care of her oncologist . Hypertensive disorder 38 777404 I10 On low salt diet, Avoid NSAID or OTC decongesta nt if possible, on losartan., Will continue to monitor blood pressure, this is first visit with this provider. Hyperlipidemia 28266473 E78.5 Low animal fat diet. [id number] Hayden Alcazar MD [facility] (Adult Med) [address] [place] [address] 45673-358 0 09/26/2022 12:07:30 09/27/2022 12:36:11 Carcinoma of female breast 444328434 C50.919 Under the care of her oncologist . Dyslipidemia 276911966 E 78.5 Low animal fat diet, on lovastatin . Hyperlipidemia 41176750 E78.5 Low animal fat diet. Hypertensive disorder 38 964048 I10 On low salt diet, Avoid NSAID or OTC decongesta nt if possible, on losartan., Will continue to monitor blood pressure, this is first visit with this provider. As 09-26-22, BP is 142/72. will continue med and monitor blood pressure. Osteopenia 311303503 M85 .80 On calcium and Vitamin D. Type 2 miroslava betes mellitus 05789558 E11.9 Diabetic diet, on metformin, and januvia, has enough refills. Metformin and januvia. Dyslipidem ia due to type 2 diabetes mellitus 5907062307 02 E78.5 Low animal fat diet. avoid alcohol. tient already on lovastatin . [id number] MD [facility] (Adult Med) [address] [place] [address] 93821-871 0 12/27/2022 11:48:16 12/28/2022 10:16:49 Primary malignant neoplasm of female breast 61080309 C50.919 since 2019, on chemo therapy, under the care of her oncologist . Postmenopa usal osteopenia 826062913 M85.80 Advised to be on calcium plus vitamin D, she agreed. T-score on hip was negative 2, [id number] MD [facility]inta Gregg (Adult Med) [address] [place] [address] 88591-091 0 04/29/2023 12:02:32 05/01/2023 14:50:29 Osteopenia 216328990 M85.80 On calcium and Vitamin D. Mammograph ic mass of right breast 2468599711 1079685 R92.8 Will be in August 14. Follow up . Hypertensive disorder 38 299099 I10 On low salt diet, Avoid NSAID or OTC decongesta nt if possible, on losartan., Will continue to monitor blood pressure, this is first visit with this provider. As 09-26-22, BP is 142/72. will continue med and monitor blood pressure. . BP is 121/66 today 04-29-23. Hyperlipidemia 76405091 E78.5 Low animal fat diet. Dyslipidemia 556282368 E 78.5 Low animal fat diet, on lovastatin . Carcinoma of female breast 902719881 C50.919 Under the care of her oncologist . Type 2 miroslava betes mellitus 90537739 E11.9 Diabetic diet, on metformin, and januvia, has enough refills. Metformin and januvia. Dyslipidem ia due to type 2 diabetes mellitus 3877516370 02 E78.5 Low animal fat diet. avoid alcohol. tient already on lovastatin . [id number] MD [facility] (Adult Med) [address] [place] [address] 50715-182 0 07/30/2023 11:28:17 07/30/2023 12:51:23 Type 2 diabetes mellitus 19164379 E11.9 Essential hypertension 17987653 I10 Hyperlipidemia 61870949 E78.5 History of malignant neoplasm of breast 772721986 Z85.3 [id number] MD [facility]inta [facility]ween[facility] (Adult Med) [address] [place] [address] 01/08/2024 14:46:52 01/08/2024 16:08:53 Essential hypertension 12649640 I10 Type 2 miroslava betes mellitus 73930968 E11.9 Hyperlipidemia 95211090 E78.5 Serum crea tinine outside reference range 462980862 R79.89 Osteopenia 008960907 M85 .80 [id number] MD Aminta Sween[facility] (Adult Med) [address] [place] [address] 04/15/2024 14:17:40 04/15/2024 15:03:25 Body mass index 25-29 - overweight 236478718 Z68.25 Overweight 784992877 E66 .3 Type 2 miroslava betes mellitus 08737318 E11.9 Dyslipidemia 071763038 E 78.5 Essential hypertension 45150301 I10 Chronic ki dney disease stage 3 090098451 N18.30 Health Concerns Section Related Observation LastModified by Organization Detai ls LastModified Time None Recorded Concern Status LastModified by Organization Details LastModified Time None Recorded Advance Directives Directive N: Payers Encounter Date Sequence Insurance Name Policy Number Policy Dumont Covered Member ID Dumont Member ID Guarantor Name 12/27/2022 1 [facility] ON OR AFTER 09/22/20 (MEDICAID REPLACEMENT - HMO) Suzy Fontanez [id number] Suzy Fontanez 04/29/2023 1 [facility] ON OR AFTER 09/22/20 (MEDICAID REPLACEMENT - HMO) Suzy Fontanez [id number] Suzy Fontanez 07/30/2023 1 [facility] ON OR AFTER 09/22/20 (MEDICAID REPLACEMENT - HMO) Suzy Fontanez [id number] Suzy Fontanez 01/08/2024 1 [facility] ON OR AFTER 09/22/20 (MEDICAID REPLACEMENT - HMO) Suzy Fontanez [id number] Suzy Fontanez 04/15/2024 1 [facility] ON OR AFTER 09/22/20 (MEDICAID REPLACEMENT - HMO) Suzy Fontanez [id number] Suzy Fontanez Notes Date Note Type Note Provider Name and Address Organization Details Recorded Time 12/27/2022 text/html Office visit, LUANNE BARROS. history of right breast cancer, under the care of her oncologist. also provided the copies of her lab up to October 2022. she had normal liver functions , also DEXA reported osteopenia, advised her to take 2 tablets of calcium plus vitamin D daily. No lab report at this day reported abnormal Lft SHE WAS TOLD BY HER ONCOLOGIST, WHO ORDERED THE TEST, BUT THIS OFFICE NEVER HAS COPY AT THIS DAY. She is going to see her oncologist in February 2023. Hayden Alcazar MD Attn: Accounting, [address] [facility], [place], [address], [facility] 12/27/2022 15:01:07 04/29/2023 text/html Office visit, LUANNE BARROS. type 2 DM. dyslipidemia, right breast cancer, osteopenia, uneven legs. and hypertension. Check up and med refills if any. No chest pain, no shortness of breath, no fever. Regular appetite and bowel habit. ROS as noted in HPI. Hayden Alcazar MD Attn: Accounting, [address] [facility], [place], [address], [facility] 04/29/2023 12:52:52 07/30/2023 text/html Follow-up medica l problems history of diabetes hypertension hyperlipidemia breast cancer with history of lumpectomy she is under the care of her oncologist feeling pretty good today without any specific Sourav Frye MD Attn: Accounting, [address] [facility], [place], [address], [facility] 08/10/2023 00:01:47 01/08/2024 text/html hypertension blo od pressure looks controlled possibly could be a little bit lower given her CKD 3. 2. 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 3. Diabetes no polyphagia polydipsia we will check blood work. History of breast cancer stable osteopenia no bone pain at this time she is taking some calcium with vitamin-D Sourav Frye MD Attn: Accounting, [address] [place], [address], [facility] 02/01/2024 21:24:35 04/15/2024 text/html hypertension no headache or dizziness her blood pressure is well controlled. Hyperlipidemia does try to follow low-fat diet she was taking lovastatin. Diabetes no polyphagia no polydipsia CKD 4 asymptomatic they are in the process of working up the etiology for completeness sake Sourav Frye MD Attn: Accounting,[address] 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 Operator Status 04/15/19 16 1 CLOSED Fetus Data First Name Last Name Admitted to NICU Weight (g) Sex Living Outcome Pediatric Complications Fetus ID Race Codes Race Delivery Type 3628.73 6 M Prematur e [id number] Michael Calculation Initial Michael Date Initial Exam Date Initial Exam Provider Initial Ultrasound Date Last Menstrual Period Date Ultra Sound Weeks Gestation 0 Eighteen To Twenty Week Michael Update Ultra Sound Date Fundal Height At Umbil Quickening Date Ultra Sound Latest Weeks Gestation Final Michael Confirmed By Final Michael Confirmed Date Final Michael Date Ultra Sound Latest Days Gestation 0 0 Menstrual History Last Menstrual Date Menses Monthly On Bcp Conception Prior Menses Frequency Hcg Plus Date Menarche Onset Age Delivery Information Delivery Date Delivery Type Labor Anesthesia Weeks Gestation Incision Type Labor Labor Length Hrs Delivered By Post Complications Tubal Sterilization Discharge Date Comments 9 [facility]- idural 37 [place] Discharge Information Feeding Method Contraceptive Method Maternal HG B and HCT Levels Ob Episode Information Episode Created Date Number of Fetuses Patient Bloodtype Patient rh Status Prepregnancy Weight lbs Domestic Partner Domestic Partner Phone Father Name Concrete Crusher Loader Operator Status 04/15/19 16 1 CLOSED Fetus Data First Name Last Name Admitted to NICU Weight (g) Sex Living Outcome Pediatric Complications Fetus ID Race Codes Race Delivery Type 4110.67 75 F Full Term [id number] Michael Calculation Initial Michael Date Initial Exam Date Initial Exam Provider Initial Ultrasound Date Last Menstrual Period Date Ultra Sound Weeks Gestation 0 Eighteen To Twenty Week Michael Update Ultra Sound Date Fundal Height At Umbil Quickening Date Ultra Sound Latest Weeks Gestation Final Michael Confirmed By Final Michael Confirmed Date Final Michael Date Ultra Sound Latest Days Gestation 0 0 Menstrual History Last Menstrual Date Menses Monthly On Bcp Conception Prior Menses Frequency Hcg Plus Date Menarche Onset Age Delivery Information Delivery Date Delivery Type Labor Anesthesia Weeks Gestation Incision Type Labor Labor Length Hrs Delivered By Post Complications Tubal Sterilization Discharge Date Comments 6 [facility] 43 Kristina Discharge Information Feeding Method Contraceptive Method Maternal HG B and HCT Levels
--- OUTSIDE RECORDS SUMMARY | 2024-05-11 11:14 | XMS_ITS | Patient Health Summary ---
Author Organization [facility] Address [address] [place] [address] Care Team Providers Care Fuel Efficient Automobile Designer Name Role Phone Unavailable Primary Care Provider Unavailabl e Note from [facility],non-owned Affiliates and Associated Physician Practices is amultiple site organization consisting of ambulatory clinics and hospital sitesin [place], [place], [place] and [place]. This disclosure is being madepursuant to the Care Everywhere program and may not contain all information available regarding this patient. Last updated 17.[facility] [employer] Social History Tobacco Use Types Packs/Day Years Used Date Smoking Tobacco: Never Assessed Sex and Gender Information Value Date Recorded Sex Assigned at Not on file Gender Identity Not on file Sexual Orientation Not on file Procedures * GROSS + MICRO EXAM(Performed 03/08/2004) Results * GROSS + MICRO EXAM (03/08/2004 10:30 AM AUTO BODY ESTIMATOR) Result CASE NUMBER [id number] Comment: ORDERING PHYSICIAN RICHARD VERA SPECIMEN TYPE Endometrium,Curetti DATE OF PROCEDURE 03/08/2004 SPECIMEN LABELED Endometrial curettings PRE-OP DIAGNOSIS Exccessive menstruation GROSS DESCRIPTION GROSS DESCRIPTION The specimen is received in container of formalin labeled endometrial curettings patient Suzy Fontanez and consists of 3.1 grams of pink- deras to dark red mucosal tissue and blood clot. The larger pieces are polypoid in appearance. All used in A1 through A3. Dictated by Amna Quiros M.D. MICROSCOPIC DESCRIPTION The sections show late proliferative endometrium with many non- complicated irregular branching of glands and pseudostratification. A small amount of endocervical tissue shows minimal chronic inflammation. DIAGNOSIS Uterus, endometrial curettings disordered proliferative endometrium scanty endocervical tissue with minimal chronic inflammation Dictated by Amna Quiros M.D. Welder Tack TORIE LEE Electronically Signed By AMNA QUIROS *ADDENDUM ADDITIONAL MICROSCOPIC DESCRIPTION The AFB stain show no micro-organisms. ADDENDUM DIAGNOSIS Endometrial curettings, AFB stain negative for acid fast bacilli Dictated by Amna Quiros M.D. MISCELLANEOUS SAMPLES / Unknown 03/08/2004 10:30 AM AUTO BODY ESTIMATOR 03/08/2004 1:27 PM AUTO BODY ESTIMATOR Historical Provider LAB - PATHOLOGY/C YTOLOGY ORDERABLES
--- OUTSIDE RECORDS SUMMARY | 2024-05-11 11:14 | XMS_ITS | Clinical Summary ---
Author Organization [facility] Address [address] [place] [address] Care Team Providers Care Registered Nurse Fetal Name Role Phone Unavailable Primary Care Provider Unavailabl e Source Comments [facility],non-owned Affiliates and Associated Physician Practices is amultiple site organization consisting of ambulatory clinics and hospital sitesin [place], [place], [place] and [place]. This disclosure is being madepursuant to the Care Everywhere program and may not contain all information available regarding this patient. Last updated 17.[facility] Social History Tobacco Use Types Packs/Day Years Used Date Smoking Tobacco: Never Assessed Sex and Gender Information Value Date Recorded Sex Assigned at Not on file Gender Identity Not on file Sexual Orientation Not on file Plan of Treatment Health Maintenance Due Date Last Done Comments BONE DENSITY TESTING 1955 COLOGUARD (AGES 45-75) - COL ON CA SCREENING 1956 COLON MONITORING 1956 COLONOSCOPY - COLON CA SCREENING 1956 CT COLONOGRAPHY - COLON CA SCREENING 1955 Colorectal Cancer Screening 1956 FIT - COLON CA SCREENING 1956 FLEX SIG - COLON CA SCREENING 1956 LIPID TESTING 1956 MAMMOGRAM 1956 HEPATITIS C SCREENING 10/17/1974 DTAP/TDAP/TD VACCINES (1 - Tdap) 10/22/1975 PNEUMOCOCCAL VACCINE 50+ (1 of 1 - PCV) 2006 ZOSTER VACCINE (1 of 2) 2006 COVID-19 VACCINE ( - 2023-2 5 season) 2023 INFLUENZA VACCINE (#1) 2023 DEPRESSION SCREENING 03/25/2024 Respiratory Syncytial Virus (RSV) Vaccine Pt: or over 60 yrs (1 - 1-dose 75+ series) 10/22/2031 HEPATITIS B VACCINE Aged Out No longe r eligible based on patient's age to complete this topic HIB VACCINE Aged Out No longer eligi ble based on patient's age to complete this topic HPV VACCINE Aged Out No longer eligi ble based on patient's age to complete this topic MENINGOCOCCAL (Group B) VACCINE Aged Out No longer eligible based on patient's age to complete this topic MENINGOCOCCAL VACCINE Aged Out No jaci jin eligible based on patient's age to complete this topic
--- OUTSIDE RECORDS SUMMARY | 2024-05-11 11:14 | XMS_ITS | Encounter Summary ---
Author Organization [facility] Address [address] [place] [address] Care Team Providers Care Timber Hewer Name Role Phone Hayden Alcazar MD Primary Care Provider [phone] Encounter Details Date Type Department Care Team (Late st Contact Info) Description 08/26/2019 Chart Note [facility] Radiation Therapy [address] [place] [address] Alma Hernán[place] [address] [place] [address] Social History Tobacco Use Types Packs/Day Years Used Date Smoking Tobacco: Never Smokeless Tobacco: Never Alcohol Use Standard Drinks/Week Comments Not Currently 0 (1 standard drink = 0.6 oz pur e alcohol) Comments No Sex and Gender Information Value Date Recorded Sex Assigned at Not on file Legal Sex Female 2:54 PM CDT Gender Identity Not on file Sexual Orientation Not on file COVID-19 Exposure Response Date Recorded In the last month, have you been in contact with someone who was confirmed or suspected to have Coronavirus / COVID-19? 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
--- OUTSIDE RECORDS SUMMARY | 2024-05-11 11:14 | XMS_ITS | Clinical Summary ---
Author Organization [facility] Cedrick patino [facility] Address [address] [place] [address] Care Team Providers Care Cap Maker Name Role Phone Hayden Alcazar MD Primary Care Provider [phone] Allergies No known active allergies Medications metFORMIN (GLUCOPHAGE) 500 mg tablet TAKE 1 TABLET BY MOUTH TWICE DAILY 0 Active lovastatin (MEVACOR) 20 mg tablet TAKE 1 TABLET BY MOUTH ONCE DAILY IN THE EVENING 0 Active losartan (COZAAR) 50 mg tablet losartan 50 mg tablet Active TRUEplus Lancets 33 gauge 0 Active OneTouch Verio test strips Strip 0 Active cyanocobalamin 1,000 mcg Tablet Take 1,000 mcg by mouth daily. Active calcium carbonate/vitami n D3 (CALCIUM CHEWABLE PLUS ORAL) Take by mouth. Active omega-3 fatty acids-fish oil 300-1,000 mg Capsule Take by mouth daily. Active sitagliptin phosphate (JANUVIA ORAL) Take by mouth. Active blood sugar diagnostic (ONETOUCH ULTRA BLUE TEST STRIP [facility]) OneTouch Ultra Blue Test Strip Active fenofibrate (FENOGLIDE) 120 mg Tablet 120 mg by G Tube route daily. 3 Active anastrozole (Arimidex) 1 mg tabletIndication s:Malignant neoplasm of upper-outer quadrant of right breast in female, estrogen receptor positive (CMS/HCC) Take 1 Tablet (1 mg) by mouth daily. 90 Tablet 4 4 Active dapagliflozin propanediol (FARXIGA ORAL) Take by mouth. Active Active Problems Problem Noted Date Diagnosed Date Malignant neoplasm of upper- outer quadrant of right breast in female, estrogen receptor positive 08/24/2019 Encounters Date Type Department Care Team Description 04/21/2024 External Device Data [facility] ABSTRACTION Provider, Abstract 04/15/2024 External Device Data [facility] ABSTRACTION Provider, Abstract 04/15/2024 External Device Data [facility] ABSTRACTION Provider, Abstract 04/08/2024 External Device Data [facility] ABSTRACTION Provider, Abstract 03/31/2024 External Device Data [facility] ABSTRACTION Provider, Abstract 03/03/2024 Orders Only [facility] [place] [address] [place] [address] Scanning, Provider 03/02/2024 Orders Only [facility] [place] [address] [place] [address] Nik Castro MD 02/25/2024 Orders Only [facility] [place] [address] [place] [id number] Scanning, Provider from Last 3 Months Family History Medical History Relation Name Comments Diabetes Daughter Cancer Father Heart Disease Father Diabetes Mother Heart Disease Mother Relation Name Status Comments Daughter Alive Father Mother Son Alive Social History Tobacco Use Types Packs/Day Years Used Date Smoking Tobacco: Never Smokeless Tobacco: Never Tobacco Cessation:Counseling Given: Not Answered Alcohol Use Standard Drinks/Week Comments Not Currently 0 (1 standard drink = 0.6 oz pur e alcohol) Comments No Sex and Gender Information Value Date Recorded Sex Assigned at Not on file Legal Sex Female 2:54 PM CDT Gender Identity Not on file Sexual Orientation Not on file Last Filed Vital Signs Vital Sign Reading Time Taken Comments Blood Pressure 115/79 11/05/2023 9:56 AM CDT Pulse 79 11/05/2023 9:56 AM CDT Temperature 36.5 C (97.7 F) 11/05/2023 9:51 AM CDT Respiratory Rate 16 11/05/2023 9:51 AM CDT Oxygen Saturation 96% 11/05/2023 9:51 AM CDT Inhaled Oxygen Concentration - - Weight 59 kg (130 lb) 11/05/2023 9:51 AM CDT Height 152.4 cm (5') 01/23/2022 11:40 AM CDT Body Mass Index 25.39 01/23/2022 11:40 AM CDT Plan of Treatment Upcoming Encounters Date Type Department Care Team (Late st Contact Info) Description 05/13/2024 11:00 AM PHYSICAL METALLURGIST Office Visit [facility] [place] [address] [facility] [address] [place] [address] Nik Castro MD [address] [place] [address] Health Maintenance Due Date Last Done Comments DIABETES ANNUAL FOOT EXAM 1974 DIABETES ANNUAL RETINAL EXAM 1974 DIABETES HBA1C Q 6 MONTHS 1974 DIABETES MICROALBUMIN ANNUAL SCREEN 1974 LDL CHOLESTEROL ANNUAL 1974 DTAP/TDAP/TD VACCINES (1 - Tdap) 10/22/1975 PNEUMOCOCCAL VACCINE 65+ YEA RS (1 of 2 - PCV) 10/22/1975 Preventative Visit-Managed Medicaid 10/22/1975 COLORECTAL SCREENING 2001 Colorectal Cancer Screening 2001 FIT-DNA Q 3 years 2001 FIT/FOBT Q 1 year 2001 Flex Sig/CT Colonography Q 5 years 2001 ZOSTER VACCINE (1 of 2) 2006 RSV VACCINE (60+ or ) (1 - Risk 60-74 years 1-dose series) 2016 INFLUENZA VACCINE (#1) 2023 BREAST CANCER SCREENING 08/14/2024 08/15/19 24, 11/10/2020, 05/06/2020 OSTEOPOROSIS SCREENING Completed 11/01/2022, 2020 Procedures Procedure Name Priority Date/Time Associated Diagnosis Comments NIELS PANEL Routine 02/28/2024 1:58 PM PHYSICAL METALLURGIST PROTEIN ELECTROPHORESIS, CSF Routine 02/27/2024 8:47 AM PHYSICAL METALLURGIST NIELS PANEL Routine 02/24/2024 11:17 AM PHYSICAL METALLURGIST CHG URINE CREATININE Routine 02/24/2024 10:55 AM PHYSICAL METALLURGIST ANCA IBD SCREEN W/REFLEX TITER Routine 02/21/2024 9:44 AM PHYSICAL METALLURGIST MAMMO SCREENING BILAT Routine 08/15/2023 9:03 AM CDT XR DEXA BONE DENSITY AXIAL 1 OR MORE SITES Routine 05/06/2020 Osteopenia of multiple sites from Last 3 Months or Most Recently Relevant to Health Maintenance Results * NIELS PANEL (02/28/2024 1:58 PM PHYSICAL METALLURGIST) Only the most recent of2 resultswithin the time period is included. Blood us Provider Scanning CHEMISTRY ORDERABLES Final Res ult * PROTEIN ELECTROPHORESIS, CSF (02/27/2024 8:47 AM PHYSICAL METALLURGIST) Cerebrospinal fluid CEREBROSPINAL FLUID / Unknown Nik Castro MD BODY FLUIDS AND STOOLS Final Re sult * CHG URINE CREATININE (02/24/2024 10:55 AM PHYSICAL METALLURGIST) us Provider Scanning CHG - LABORATORY Final Result * ANCA IBD SCREEN W/REFLEX TITER (02/21/2024 9:44 AM PHYSICAL METALLURGIST) Blood us Provider Scanning CHEMISTRY ORDERABLES Final Res ult * MAMMO SCREENING BILAT (08/15/2023 9:03 AM CDT) Anatomical Region Laterality Modality Breast Bilateral Other us Nik Castro MD MAMMO ORDERABLES Final Result * XR DEXA BONE DENSITY AXIAL 1 OR MORE SITES (05/06/2020) Anatomical Region Laterality Modality Other Nik Castro MD DIAGNOSTIC IMAGING ORDERABLES F inal Result from Last 3 Months or Most Recently Relevant to Health Maintenance Insurance [facility] MEDICA[employer] Care Teams Cap Maker Relationship Specialty Start Date End Date Hayden Alcazar MD [address] [place] [phone] PCP - General Internal Medicine 11/08/22
[2024-05-11 11:17] LABS: Alanine Aminotransferase 19 U/L (6-35); Albumin Level 3.9 g/dL (3.5-5.1); Alkaline Phosphatase 66 U/L (38-126); Anion Gap 11 mmol/L (4-12); Aspartate Amino Transferase 22 U/L (14-36); Bilirubin,Total 0.4 mg/dL (0.2-1.3); Blood Urea Nitrogen 42 mg/dL (7-17); Calcium 9.5 mg/dL (8.4-10.2); Carbon Dioxide 23 mmol/L (22-30); Chloride 107 mmol/L (98-107); Estimated Glomerular Filt Rate 31; Glucose 97 mg/dL (65-110); Potassium 4.5 mmol/L (3.4-5.0); Sodium 141 mmol/L (137-145)
[2024-05-11 11:36] LABS: Immunoglobulin A 223 mg/dL (70-400); Immunoglobulin G 1391 mg/dL (700-1600); Immunoglobulin M 248 mg/dL (40-230)
[2024-05-12 01:59] LABS: CA 15-3 17 U/mL (<32)
[2024-05-12 19:04] LABS: Albumin 3.6 g/dL (3.8-4.8); Alpha 1 Globulin 0.3 g/dL (0.2-0.3); Alpha 2 Globulin 0.8 g/dL (0.5-0.9); Beta 1 Globulin 0.4 g/dL (0.4-0.6); Gamma Globulin 1.5 g/dL (0.8-1.7)
[2024-05-13 11:23] LABS: Lambda Light Chain 39.6 mg/L (5.7-26.3)
== END 2024-05-11 08:12 | disposition home or self-care (01) ==
LOC: ANHLAB 08:12
PROVIDERS: PCP Internal Medicine; Visit Provider Internal Medicine Hematology & Oncology
DX: C50.411 Malignant neoplasm of upper-outer quadrant of right female breast (principal); Z71.0 Person encountering health services to consult on behalf of another person
CPT/HCPCS: 36415; 80053; 82784; 83883; 84155; 84165; 85025; 86300

== ENCOUNTER 2024-06-15 10:29 | Outpatient (CLI) | payer OTHER, SELFPAY ==
[2024-06-15 11:44] LABS: Albumin Level 4.1 g/dL (3.5-5.1); Anion Gap 6 mmol/L (4-12); Blood Urea Nitrogen 43 mg/dL (7-17); Calcium 9.6 mg/dL (8.4-10.2); Carbon Dioxide 33 mmol/L (22-30); Chloride 103 mmol/L (98-107); Estimated Glomerular Filt Rate 30; Glucose 120 mg/dL (65-110); Phosphorus 4.3 mg/dL (2.5-4.5); Potassium 4.6 mmol/L (3.4-5.0); Sodium 142 mmol/L (137-145)
[2024-06-15 11:53] LABS: Parathyroid Intact 23.2 pg/mL (14.5-75.2)
[2024-06-15 12:03] LABS: Creatinine Urine 99.2 mg/dL
[2024-06-15 12:05] LABS: Vitamin D 25 Hydroxy 42.6 ng/mL
[2024-06-15 12:11] LABS: Total Protein Urine Random 241 mg/dL; Ur Ttl Prot Creatinine Ratio 2.43 mg/mg (0-0.20)
--- OUTSIDE RECORDS SUMMARY | 2024-06-15 12:15 | XMS_ITS | Clinical Summary ---
Author Organization [facility] Address [address] [place] [address] Care Team Providers Care Family Caseworker Name Role Phone Unavailable Primary Care Provider Unavailabl e Source Comments [facility],non-owned Affiliates and Associated Physician Practices is amultiple site organization consisting of ambulatory clinics and hospital sitesin [place], [place], [place] and [place]. This disclosure is being madepursuant to the Care Everywhere program and may not contain all information available regarding this patient. Last updated 17.[facility] Social History Tobacco Use Types Packs/Day Years [...] to complete this topic MENINGOCOCCAL (Group B) VACC INE SHARED DECISION-MAKING Aged Out No longer eligibl e based on patient's age to complete this topic MENINGOCOCCAL GROUPS A/C/Y/W VACCINE Aged Out No longer eligible b ased on patient's age to complete this topic
--- OUTSIDE RECORDS SUMMARY | 2024-06-15 12:16 | XMS_ITS | Data Portability ---
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 SOURAV FRYE Primary Care Provider Assessment Encounter Date Assessment Date Assessment LastModified by Organization Details LastModified Time 07/30/2023 07/30/2023 Will get blood work continue current therapy stay up-to-date on eye doctors appointment she has 23 November believes that she is due for colonoscopy next year targets for A1c lipid and blood pressure been discussed [email or web address] Not available 08/10/2023 00:01:26 01/08/2024 01/08/2024 we will continue current therapy blood work has been ordered she has been advised to see podiatry for foot exam and her eye doctor for a diabetic eye exam follow up 4 months [email or web address] Not available 02/01/2024 21:24:16 04/15/2024 04/15/2024 continue [...] will set up with diabetic foot exam [email or web address] Not available 04/19/2024 17:28:29 Plan of Treatment Reminders Order Date Submit Date Provider Last Modified By Organization Details Last Modified Time Details Appointments ANY 15 2024 10:00A Horacio Frye MD Not available Not available Not available Lab HbA1c (hemog lobin A1c), blood 2023 024 [facility], [address] [facility], [address], [place], [address], 01/09/2024 06:23:22 lipid panel, serum 2023 024 [facility], [address], [address], [place], [address], 01/09/2024 06:24:13 CMP, serum or plasma 2023 024 [facility], [address], [address], [place], [address], 01/09/2024 06:24:14 CBC w/ auto diff 2023 024 [facility], [address], [address], [place], [address], 01/09/2024 06:24:16 HbA1c (hemog lobin A1c), blood 2023 024 [facility], [address], [address], [place], [address], 07/31/2023 10:13:36 albumi n/crea tinine , mass ratio, urine 2023 024 [facility], [address], [address], [place], [address], 07/31/2023 10:13:35 CBC w/ auto diff 2023 024 [facility], [address], [address], [place], [address], 07/31/2023 06:17:08 CMP, serum or plasma 2023 024 [facility], [address], [address], [place], [address], 07/31/2023 06:17:07 lipid panel, serum 2023 024 [facility], [address] [facility] [facility] [address], [address], [place], [address], 07/31/2023 06:17:06 HbA1c (hemog lobin A1c), blood 2023 024 [email or web address] In-Office Order, Internal Use Only DO Not Attach Compendium DO Not Attach Compendium, Do Not Delete/merge, [id number] 04/29/2023 12:52:28 Referral podiat rist referr al 2024 025 federico Riggins DPM, [address] [facility], [place], [address], 05/19/2024 16:20:20 Procedures None record ed. Surgeries None record ed. Imaging None record ed. Medication Orders OneTou ch Verio test strips 2023 024 [email or web address] [facility], [address] [place] [address], [address], 07/30/2023 13:34:13 losart an 50 mg tablet 2023 024 [facility], [address] [place], [address], 04/29/2023 12:52:45 Januvi a 100 mg tablet 2023 024 [facility], [address] [place], [address], 04/29/2023 12:52:46 metfor min 500 mg tablet 2023 024 [facility], [address] [place], [address], 04/29/2023 12:52:44 calciu m 600 mg (as carbon ate)-v itamin D3 10 mcg (400 unit) tablet 2023 024 [facility], [address] [place] [address], [address], 04/29/2023 12:52:45 omega- 3 acid ethyl esters 1 gram capsul e 2023 024 [facility], [address] [place] [address], [address], 04/29/2023 12:52:43 fenofi brate 120 mg tablet 2023 024 [facility], [address] [place] [address], [address], 02/03/2024 11:26:43 lovast atin 20 mg tablet 2023 024 [facility], [address] [place] [address], [address], 04/29/2023 12:52:45 Patient TargetsNo targets recorded. Patient Instructions Encounter Date Encounter Id Patient Instructions Last Modified By Organization Details Last Modified Time 04/29/2023 [id number] high cholesterol : care instructions [email or web address] Not available 04/29/2023 12:52:25 04/15/2024 [id number] A healthy lifestyle: care instructions [email or web address] Not available 04/15/2024 15:05:24 Reason for Referral Contact Center Agent Referral for Type 2 diabetes mellitus Referring Physician: Sourav Frye, Internal Medicine, Encounter Date: 04/15/2024 Results Created Date Observation Date Name Description Value Unit Range Abnormal Flag Note LastModifiedBy Organization Detail LastModifiedTime 04/29/1904/29/2023 HbA1c (hemo globi n A1c), blood HbA1c 5.7 % today Not Available In-Office Order Internal Use Only DO Not Attach Compendium DO Not Attach Compendium, Do Not Delete/merge, [id number] 04/29/2023 12:48:34 07/30/1907/30/2023 LIPID PANEL cholesterol, total 180 mg/dL 100-19 9 Not Available [facility] [address] [place] [address], [address], 07/31/2023 06:17:06 07/30/19 24 07/30/2023 LIPID PANEL triglyceride s 163 mg/dL 0-149 above high normal Not Available [facility] [address] [place] [address], [address], 07/31/2023 06:17:06 07/30/19 24 07/30/2023 LIPID PANEL HDL cholesterol 57 mg/dL 40-999 Not Available [facility] [address] [place] [address], [address], 07/31/2023 06:17:06 07/30/19 24 07/30/2023 LIPID PANEL VLDL cholesterol viridiana 33 mg/dL 5-40 Not Available [facility] [address] [place] [address], [address], 07/31/2023 06:17:06 07/30/19 24 07/30/2023 LIPID PANEL LDL chol calc (nih) 114 mg/dL 0-99 above high normal Not Available [facility] [address] [place], [address], 07/31/2023 06:17:06 07/30/19 24 07/30/2023 COMP. METAB OLIC PANEL (14) glucose 90 mg/dL 70-99 Not Available [facility] [address] [place], [address], 07/31/2023 06:17:07 07/30/19 24 07/30/2023 COMP. METAB OLIC PANEL (14) BUN 37 mg/dL 8-27 above high normal Not Available [facility] [address] [place], [address], 07/31/2023 06:17:07 07/30/19 24 07/30/2023 COMP. METAB OLIC PANEL (14) creatinine 1.35 mg/dL 0.76-1 .27 above high normal Not Available [facility] [address] [place] [address], [address], 07/31/2023 06:17:07 07/30/19 24 07/30/2023 COMP. METAB [...] disre enrique that value . Not Available [facility] [address] [place] [address], [address], 07/31/2023 06:17:07 07/30/19 24 07/30/2023 COMP. METAB OLIC PANEL (14) BUN/creatini ne ratio 28 10-28 Not Available [facility] [address] [place] [address], [address], 07/31/2023 06:17:07 07/30/19 24 07/30/2023 COMP. METAB OLIC PANEL (14) sodium 141 mmol/ L 134-14 4 Not Available [facility] [address] [place] [address], [address], 07/31/2023 06:17:07 07/30/19 24 07/30/2023 COMP. METAB OLIC PANEL (14) potassium 4.5 mmol/ L 3.5-5. 2 Not Available [facility] [address] [place] [address], [address], 07/31/2023 06:17:07 07/30/19 24 07/30/2023 COMP. METAB OLIC PANEL (14) chloride 102 mmol/ L 96-106 Not Available [facility] [address] [place] [address], [address], 07/31/2023 06:17:07 07/30/19 24 07/30/2023 COMP. METAB OLIC PANEL (14) carbon dioxide, total 24 mmol/ L 20-29 Not Available [facility] [address] [place], [address], 07/31/2023 06:17:07 07/30/19 24 07/30/2023 COMP. METAB OLIC PANEL (14) calcium 10.6 mg/dL 8.7-10 .3 above high normal Not Available [facility] [address] [place], [address], 07/31/2023 06:17:07 07/30/19 24 07/30/2023 COMP. METAB OLIC PANEL (14) protein, total 7.9 g/dL 6.0-8. 5 Not Available [facility] [address] [place] [address], [address], 07/31/2023 06:17:07 07/30/19 24 07/30/2023 COMP. METAB OLIC PANEL (14) albumin 4.4 g/dL 3.8-4. 8 Not Available [facility] [address] [place], [address], 07/31/2023 06:17:07 07/30/19 24 07/30/2023 COMP. METAB OLIC PANEL (14) globulin, total 3.5 g/dL 1.5-4. 5 Not Available [facility] [address] [place] [address], [address], 07/31/2023 06:17:07 07/30/19 24 07/30/2023 COMP. METAB OLIC PANEL (14) A/G ratio 1.0 1.2-2. 2 below low normal Not Available [facility] [address] [place] [address], [address], 07/31/2023 06:17:07 07/30/19 24 07/30/2023 COMP. METAB OLIC PANEL (14) bilirubin, total 0.3 mg/dL 0.0-1. 2 Not Available [facility] [address] [place], [address], 07/31/2023 06:17:07 07/30/19 24 07/30/2023 COMP. METAB OLIC PANEL (14) alkaline phosphatase 39 IU/L 44-121 below low normal Not Available [facility] [address] [place], [address], 07/31/2023 06:17:07 07/30/19 24 07/30/2023 COMP. METAB OLIC PANEL (14) AST (SGOT) 17 IU/L 0-40 Not Available [facility] [address] [place], [address], 07/31/2023 06:17:07 07/30/19 24 07/30/2023 COMP. METAB OLIC PANEL (14) ALT (SGPT) 17 IU/L 0-32 Not Available [facility] [address] [place], [address], 07/31/2023 06:17:07 07/30/19 24 07/30/2023 CBC WITH DIFFE RENTI AL/PL ATELE T WBC 7.0 x10e3 /uL 3.4-10 .8 Not Available [facility] [address] [place], [address], 07/31/2023 06:17:08 07/30/19 24 07/30/2023 CBC WITH DIFFE RENTI AL/PL ATELE T RBC 5.21 x10e6 /uL 3.77-5 .28 Not Available [facility] [address] [place], [address], 07/31/2023 06:17:08 07/30/19 24 07/30/2023 CBC WITH DIFFE RENTI AL/PL ATELE T hemoglobin 14.7 g/dL 11.1-1 5.9 Not Available [facility] [address] [place], [address], 07/31/2023 06:17:08 07/30/19 24 07/30/2023 CBC WITH DIFFE RENTI AL/PL ATELE T hematocrit 47.3 % 34.0-4 6.6 above high normal Not Available [facility] [address] [place], [address], 07/31/2023 06:17:08 07/30/19 24 07/30/2023 CBC WITH DIFFE RENTI AL/PL ATELE T MCV 91 fL 79-97 Not Available [facility] [address] [place], [address], 07/31/2023 06:17:08 07/30/19 24 07/30/2023 CBC WITH DIFFE RENTI AL/PL ATELE T MCH 28.2 pg 26.6-3 3.0 Not Available [facility] [address] [place], [address], 07/31/2023 06:17:08 07/30/19 24 07/30/2023 CBC WITH DIFFE RENTI AL/PL ATELE T MCHC 31.1 g/dL 31.5-3 5.7 below low normal Not Available [facility] [address] [place], [address], 07/31/2023 06:17:08 07/30/19 24 07/30/2023 CBC WITH DIFFE RENTI AL/PL ATELE T RDW 13.1 % 11.5-1 4.5 Not Available [facility] [address] [place], [address], 07/31/2023 06:17:08 07/30/19 24 07/30/2023 CBC WITH DIFFE RENTI AL/PL ATELE T platelets 366 x10e3 /uL 150-45 0 Not Available [facility] [address] [place], [address], 07/31/2023 06:17:08 07/30/19 24 07/30/2023 CBC WITH DIFFE RENTI AL/PL ATELE T neutrophils 61 % notest b. Not Available [facility] [address] [place], [address], 07/31/2023 06:17:08 07/30/19 24 07/30/2023 CBC WITH DIFFE RENTI AL/PL ATELE T lymphs 21 % notest b. Not Available [facility] [address] [place], [address], 07/31/2023 06:17:08 07/30/19 24 07/30/2023 CBC WITH DIFFE RENTI AL/PL ATELE T monocytes 9 % notest b. Not Available [facility] [address] [place], [address], 07/31/2023 06:17:08 07/30/19 24 07/30/2023 CBC WITH DIFFE RENTI AL/PL ATELE T eos 8 % notest b. Not Available [facility] [address] [place], [address], 07/31/2023 06:17:08 07/30/1907/30/2023 CBC WITH DIFFE RENTI AL/PL ATELE T basos 1 % notest b. Not Available [facility] [address] [place], [address], 07/31/2023 06:17:08 07/30/19 24 07/30/2023 CBC WITH DIFFE RENTI AL/PL ATELE T neutrophils (absolute) 4.3 x10e3 /uL 1.4-7. 0 Not Available [facility] [address] [place], [address], 07/31/2023 06:17:08 07/30/19 24 07/30/2023 CBC WITH DIFFE RENTI AL/PL ATELE T lymphs (absolute) 1.5 x10e3 /uL 0.7-3. 1 Not Available [facility] [address] [place], [address], 07/31/2023 06:17:08 07/30/19 24 07/30/2023 CBC WITH DIFFE RENTI AL/PL ATELE T monocytes(ab solute) 0.6 x10e3 /uL 0.1-0. 9 Not Available [facility] [address] [place], [address], 07/31/2023 06:17:08 07/30/19 24 07/30/2023 CBC WITH DIFFE RENTI AL/PL ATELE T eos (absolute) 0.5 x10e3 /uL 0.0-0. 4 above high normal Not Available [facility] [address] [place], [address], 07/31/2023 06:17:08 07/30/19 24 07/30/2023 CBC WITH DIFFE RENTI AL/PL ATELE T baso (absolute) 0.1 x10e3 /uL 0.0-0. 2 Not Available [facility] [address] [place], [address], 07/31/2023 06:17:08 07/30/19 24 07/30/2023 CBC WITH DIFFE RENTI AL/PL ATELE T immature granulocytes 0.3 % notest b. Not Available [facility] [address] [place], [address], 07/31/2023 06:17:08 07/30/19 24 07/30/2023 CBC WITH DIFFE RENTI AL/PL ATELE T immature grans (abs) 0.0 x10e3 /uL 0.0-0. 1 Not Available [facility] [address] [place], [address], 07/31/2023 06:17:08 07/30/19 24 07/30/2023 CBC WITH DIFFE RENTI AL/PL ATELE T NRBC 0 % 0-0 Not Available [facility] [address] [place], [address], 07/31/2023 06:17:08 07/30/19 24 07/31/2023 ALBUM IN/CR EATIN INE RATIO ,URIN E creatinine, urine 96.1 mg/dL notest ab. Not Available [facility] ([facility]) [address] [place], [address], 07/31/2023 10:13:35 07/30/19 24 07/31/2023 ALBUM IN/CR EATIN INE RATIO ,URIN E albumin, urine 85.3 ug/mL notest ab. Not Available [facility] ([facility]) [address] [place], [address], 07/31/2023 10:13:35 07/30/19 24 07/31/2023 ALBUM IN/CR EATIN INE RATIO ,URIN E alb/creat ratio 89 mg/g_ creat 0-29 above high normal Carmella l: 0 - 29 Moder ately incre ased: 30 - 300 Sever ant incre ased: >300 Not Available [facility] ([facility]) [address] [place], [address], 07/31/2023 10:13:35 07/30/19 24 07/31/2023 HEMOG LOBIN A1C hemoglobin A1C 6.0 % 4.8-5. 6 above high normal Predi abete s: 5.7 - 6.4 Diabe karissa: >6.4 Glyce tere contr ol for adult s with diabe karissa: <7.0 Not Available [facility] ([facility]) [address] [place], [address], 07/31/2023 10:13:36 01/08/20 24 01/09/2024 HEMOG LOBIN A1C hemoglobin A1C 5.8 % 4.8-5. 6 above high normal Predi abete s: 5.7 - 6.4 Diabe karissa: >6.4 Glyce tere contr ol for adult s with diabe karissa: <7.0 Not Available [facility] ([facility]) [address] [facility], [place], [address], 01/09/2024 06:23:22 01/08/2001/08/2024 LIPID PANEL cholesterol, total 157 mg/dL 100-19 9 Not Available [facility] [address] [place] [address], [address], 01/09/2024 06:24:13 01/08/2001/08/2024 LIPID PANEL triglyceride s 195 mg/dL 0-149 above high normal Not Available [facility] [address] [place], [address], 01/09/2024 06:24:13 01/08/2001/08/2024 LIPID PANEL HDL cholesterol 58 mg/dL 40-999 Not Available [facility] [address] [place] [address], [address], 01/09/2024 06:24:13 01/08/2001/08/2024 LIPID PANEL VLDL cholesterol viridiana 39 mg/dL 5-40 Not Available [facility] [address] [place], [address], 01/09/2024 06:24:13 01/08/2001/08/2024 LIPID PANEL LDL chol calc (nih) 90 mg/dL 0-99 Not Available [facility] [address] [place], [address], 01/09/2024 06:24:13 01/08/2001/08/2024 COMP. METAB OLIC PANEL (14) glucose 88 mg/dL 70-99 Not Available [facility] [address] [place], [address], 01/09/2024 06:24:14 01/08/2001/08/2024 COMP. METAB OLIC PANEL (14) BUN 41 mg/dL 8-27 above high normal Not Available [facility] [address] [place], [address], 01/09/2024 06:24:14 01/08/20 24 01/08/2024 COMP. METAB OLIC PANEL (14) creatinine 1.52 mg/dL 0.76-1 .27 above high normal Not Available [facility] [address] [place], [address], 01/09/2024 06:24:14 01/08/20 24 01/08/2024 COMP. METAB [...] disre enrique that value . Not Available [facility] [address] [place] [address], [address], 01/09/2024 06:24:14 01/08/20 24 01/08/2024 COMP. METAB OLIC PANEL (14) BUN/creatini ne ratio 27 10-28 Not Available [facility] [address] [place], [address], 01/09/2024 06:24:14 01/08/20 24 01/08/2024 COMP. METAB OLIC PANEL (14) sodium 142 mmol/ L 134-14 4 Not Available [facility] [address] [place], [address], 01/09/2024 06:24:14 01/08/20 24 01/08/2024 COMP. METAB OLIC PANEL (14) potassium 4.8 mmol/ L 3.5-5. 2 Not Available [facility] [address] [place] [address], [address], 01/09/2024 06:24:14 01/08/20 24 01/08/2024 COMP. METAB OLIC PANEL (14) chloride 101 mmol/ L 96-106 Not Available [facility] [address] [place] [address], [address], 01/09/2024 06:24:14 01/08/20 24 01/08/2024 COMP. METAB OLIC PANEL (14) carbon dioxide, total 29 mmol/ L 20-29 Not Available [facility] [address] [place], [address], 01/09/2024 06:24:14 01/08/20 24 01/08/2024 COMP. METAB OLIC PANEL (14) calcium 10.2 mg/dL 8.7-10 .3 Not Available [facility] [address] [place], [address], 01/09/2024 06:24:14 01/08/2001/08/2024 COMP. METAB OLIC PANEL (14) protein, total 7.6 g/dL 6.0-8. 5 Not Available [facility] [address] [place], [address], 01/09/2024 06:24:14 01/08/20 24 01/08/2024 COMP. METAB OLIC PANEL (14) albumin 4.2 g/dL 3.8-4. 8 Not Available [facility] [address] [place], [address], 01/09/2024 06:24:14 01/08/20 24 01/08/2024 COMP. METAB OLIC PANEL (14) globulin, total 3.4 g/dL 1.5-4. 5 Not Available [facility] [address] [place], [address], 01/09/2024 06:24:14 01/08/2001/08/2024 COMP. METAB OLIC PANEL (14) A/G ratio 1.0 1.2-2. 2 below low normal Not Available [facility] [address] [place], [address], 01/09/2024 06:24:14 01/08/2001/08/2024 COMP. METAB OLIC PANEL (14) bilirubin, total 0.3 mg/dL 0.0-1. 2 Not Available [facility] [address] [place], [address], 01/09/2024 06:24:14 01/08/20 24 01/08/2024 COMP. METAB OLIC PANEL (14) alkaline phosphatase 36 IU/L 44-121 below low normal Not Available [facility] [address] [place], [address], 01/09/2024 06:24:14 01/08/2001/08/2024 COMP. METAB OLIC PANEL (14) AST (SGOT) 20 IU/L 0-40 Not Available [facility] [address] [place], [address], 01/09/2024 06:24:14 01/08/20 24 01/08/2024 COMP. METAB OLIC PANEL (14) ALT (SGPT) 20 IU/L 0-32 Not Available [facility] [address] [place], [address], 01/09/2024 06:24:14 01/08/20 24 01/08/2024 CBC WITH DIFFE RENTI AL/PL ATELE T WBC 7.7 x10e3 /uL 3.4-10 .8 Not Available [facility] [address] [place], [address], 01/09/2024 06:24:16 01/08/20 24 01/08/2024 CBC WITH DIFFE RENTI AL/PL ATELE T RBC 5.17 x10e6 /uL 3.77-5 .28 Not Available [facility] [address] [place], [address], 01/09/2024 06:24:16 01/08/20 24 01/08/2024 CBC WITH DIFFE RENTI AL/PL ATELE T hemoglobin 14.5 g/dL 11.1-1 5.9 Not Available [facility] [address] [place], [address], 01/09/2024 06:24:16 01/08/2001/08/2024 CBC WITH DIFFE RENTI AL/PL ATELE T hematocrit 45.8 % 34.0-4 6.6 Not Available [facility] [address] [place], [address], 01/09/2024 06:24:16 01/08/2001/08/2024 CBC WITH DIFFE RENTI AL/PL ATELE T MCV 89 fL 79-97 Not Available [facility] [address] [place], [address], 01/09/2024 06:24:16 01/08/2001/08/2024 CBC WITH DIFFE RENTI AL/PL ATELE T MCH 28.0 pg 26.6-3 3.0 Not Available [facility] [address] [place], [address], 01/09/2024 06:24:16 01/08/2001/08/2024 CBC WITH DIFFE RENTI AL/PL ATELE T MCHC 31.7 g/dL 31.5-3 5.7 Not Available [facility] [address] [place], [address], 01/09/2024 06:24:16 01/08/2001/08/2024 CBC WITH DIFFE RENTI AL/PL ATELE T RDW 13.3 % 11.5-1 4.5 Not Available [facility] [address] [place], [address], 01/09/2024 06:24:16 01/08/2001/08/2024 CBC WITH DIFFE RENTI AL/PL ATELE T platelets 317 x10e3 /uL 150-45 0 Not Available [facility] [address] [place], [address], 01/09/2024 06:24:16 01/08/20 24 01/08/2024 CBC WITH DIFFE RENTI AL/PL ATELE T neutrophils 63 % notest b. Not Available [facility] [address] [place], [address], 01/09/2024 06:24:16 01/08/20 24 01/08/2024 CBC WITH DIFFE RENTI AL/PL ATELE T lymphs 20 % notest b. Not Available [facility] [address] [place], [address], 01/09/2024 06:24:16 01/08/2001/08/2024 CBC WITH DIFFE RENTI AL/PL ATELE T monocytes 7 % notest b. Not Available [facility] [address] [place], [address], 01/09/2024 06:24:16 01/08/2001/08/2024 CBC WITH DIFFE RENTI AL/PL ATELE T eos 9 % notest b. Not Available [facility] [address] [place], [address], 01/09/2024 06:24:16 01/08/2001/08/2024 CBC WITH DIFFE RENTI AL/PL ATELE T basos 1 % notest b. Not Available [facility] [address] [place], [address], 01/09/2024 06:24:16 01/08/2001/08/2024 CBC WITH DIFFE RENTI AL/PL ATELE T neutrophils (absolute) 4.8 x10e3 /uL 1.4-7. 0 Not Available [facility] [address] [place], [address], 01/09/2024 06:24:16 01/08/20 24 01/08/2024 CBC WITH DIFFE RENTI AL/PL ATELE T lymphs (absolute) 1.5 x10e3 /uL 0.7-3. 1 Not Available [facility] [address] [place], [address], 01/09/2024 06:24:16 01/08/20 24 01/08/2024 CBC WITH DIFFE RENTI AL/PL ATELE T monocytes(ab solute) 0.6 x10e3 /uL 0.1-0. 9 Not Available [facility] [address] [place], [address], 01/09/2024 06:24:16 01/08/2001/08/2024 CBC WITH DIFFE RENTI AL/PL ATELE T eos (absolute) 0.7 x10e3 /uL 0.0-0. 4 above high normal Not Available [facility] [address] [place], [address], 01/09/2024 06:24:16 01/08/2001/08/2024 CBC WITH DIFFE RENTI AL/PL ATELE T baso (absolute) 0.1 x10e3 /uL 0.0-0. 2 Not Available [facility] [address] [place], [address], 01/09/2024 06:24:16 01/08/20 24 01/08/2024 CBC WITH DIFFE RENTI AL/PL ATELE T immature granulocytes 0.3 % notest b. Not Available [facility] [address] [place], [address], 01/09/2024 06:24:16 01/08/20 24 01/08/2024 CBC WITH DIFFE RENTI AL/PL ATELE T immature grans (abs) 0.0 x10e3 /uL 0.0-0. 1 Not Available [facility] [address] [place], [address], 01/09/2024 06:24:16 01/08/20 24 01/08/2024 CBC WITH DIFFE RENTI AL/PL ATELE T NRBC 0 % 0-0 Not Available [facility] Department [address], [place], [address], 01/09/2024 06:24:16 08/16/19 24 08/15/2023 MAMMO , scree phyllis, bilat eral No observ ation record ed. [facility] [address], [place], [address], 08/23/2023 14:38:52 01/21/20 24 01/20/2024 US, renal No observ ation record ed. [facility] [address], [place], [address], 01/22/2024 09:56:37 04/13/19 25 04/13/2024 MR, angio gram, abdom en, w/wo contr ast No observ ation record ed. [facility] [address], [place], [address], 04/15/2024 09:10:04 Result Notes None recorded. Problems Name Problem SNOMED Code Status Onset Date Resolution Date Notes Provider Name and Address Organization Details Recorded Time Serum creatinin e outside reference range 860226899 Active 2017 Ceasar Matthews PA-C Attn: Kvng puente,[address] [facility], [place], [address], [place] [facility] 8 16:14:23 Constipat ion 88455492 Active 2017 Ceasar Matthews PA-C Attn: Kvng puente,[address] [facility], [place], [address], [place] 8 12:52:20 Hallux valgus 418298985 Active 2018 right worse than left Ceasar Matthews PA-C Attn: Kvng puente,[address] [facility], [place], [address], [place] 2 12:49:33 Screening for malignant neoplasm of breast Active 2019 Ceasar Matthews PA-C Attn: Accountin g,2040 [facility], [place], [place], [address] [place] [address] 2, [place] [facility] 0 11:52:50 Mammograp hic mass of right breast [id number] 77992 Active 2019 Ceasar Matthews PA-C Attn: Accountin g,2040 [facility], [place], [place], [address] [place] [address] 2, [place] [facility] 0 14:18:36 Carcinoma of female breast 901884022 Active 2019 Grade 2 invasive lobular carcinoma , upper/out er R breast Ceasar Matthews PA-C Attn: Accountin g,2040 [facility], [place], [address] [place] [address] 2, [place] [facility] 0 15:49:49 At increased risk of nutrition al deficit 370451937 Active 2020 Ceasar Matthews PA-C Attn: Accountraciel puente,2040 [facility], [place], [address] [place] [address] 2, [place] [facility] 1 11:13:49 Hyperlipi demia 08697433 Active 2020 Ceasar Matthews PA-C Attn: Accountraciel puente,2040 [facility], [place], [address] [place] [address] 2, [place] [facility] 1 16:27:47 Osteopeni a 819278341 Active 2020 Ceasar Matthews PA-C Attn: Accountraciel g,2040 [facility], [place], [address] [place] [address] 2, [place] [facility] 1 13:55:45 Knee pain Active Ceasar Matthews PA-C Attn: Accountin g,2040 [facility], [place], [address] [place] [address] 2, [place] [facility] 6 12:48:55 Hypertens edward disorder 88450204 Active Ceasar Matthews PA-C Attn: Accountin g,2040 [facility], [place], [address] [place] [address] 2, [place] [facility] 6 12:49:15 Hip pain 47464562 Active Ceasar Matthews PA-C Attn: Accountin g,2040 [facility], [place], [address] [place] [address] 2, [place] [facility] 6 15:31:46 Dyslipide rom 131799945 Active Ceasar Matthews PA-C Attn: Accountin g,2040 [facility], [place], [address] [place] [address] 2, [place] [facility] 6 12:49:15 Cough 06549853 Active Damonlamont Patelritt [place] [facility] 6 17:17:33 HIV screening Active 2021 Ceasar Matthews PA-C Attn: Accountin g,2040 [facility], [place], [address] [place] [address] 2, [place] [facility] 2 14:30:55 Essential hypertens ion 59200599 Active 2023 Lex Garcia [place], [place] [facility] 4 12:43:46 Chronic kidney disease stage 3 060495621 Active 2024 Sourav Frye MD Attn: Accountin g,2040 [facility], [place], [address] [place] [address] 2, [place] [facility] 5 17:27:12 Uncontrol led type 2 diabetes mellitus 351139678 Active Ceasar Matthews PA-C Attn: Accountin g,2040 [facility], [place], [address] [place] [address] 2, [place] [facility] 6 12:49:15 Hernia of abdominal cavity 56652118 Active [place] [facility] 6 17:17:33 Diastasis recti 49214075 Active [place] [facility] 6 17:17:33 Bacterial vaginosis 777157071 Active Chente Dominguez RN [place] [facility] 6 10:04:25 Sinusitis 97552186 Active Ceasar Matthews PA-C Attn: Accountin g,2040 [facility], [place], [address], [place] [facility] 6 12:49:15 Acute sinusitis 20265094 Active 2016 Ceasar Matthews PA-C Attn: Kvng puente,2040 [facility], [place], [address], [place] [facility] 7 14:42:14 Type 2 diabetes mellitus 09060401 Active 2016 Ceasar Matthews PA-C Attn: Kvng puente,2040 [facility], [place], [address], [place] [facility] 7 10:34:36 Screening for malignant neoplasm of colon Active 2016 Ceasar Matthews PA-C Attn: Kvng puente,2040 [facility], [place], [address], [place] [facility] 7 10:47:34 Obese 526109527 Active 2016 Ceasar Matthews PA-C Attn: Kvng puente,2040 [facility], [place], [address], [place] [facility] 7 12:41:06 Problem Notes None recorded. Procedures Surgical History Date Name Laterality Status Provider Name and Address Organization Details Recorded Time 6 Date of Last Pap Smear completed Lynnette Van [place] 07/23/2017 10:08:54 5 Most Recent Mammogram completed Lynnette Van [place] 04/15/2015 15:01:21 Caesarean Section completed Lynnette Van [place] [facility] 07/23/2017 10:28:27 Other completed Lynnette Van MA [place] [facility] 07/23/2017 10:29:25 Caesarean Section completed Nichelle Hayes MA [place] - [facility] 05/13/2014 14:33:53 Imaging Results Imaging Date Name Status LastModified by Organiz ation Details LastModified Time 08/15/2023 MAMMO, screening, bilateral completed [place] [address], [place], [address], 08/23/2023 14:38:52 01/20/2024 [facility] [address], [place], [address], 01/22/2024 09:56:37 04/13/2024 MR, angiogram, abdomen, w/wo contrast completed [facility] [address], [place], [address], 04/15/2024 09:10:04 Procedure Notes None recorded. Medical [...] active Not Available Not Available Not Available ciprofloxac [...] Updated DateTime 3 152.4 cm 27.3 kg/m2 09354.9 3 g 78 /min 97 % 97 % 120 mm[Hg] 78 mm[Hg] Lilo Barbosa MA [facility] 3 12:10:55 Date Recorded Body height Body mass index (BMI) Body weight Heart rate Oxygen saturation Oxygen saturation in Arterial blood by Pulse oximetry Systolic blood pressure Diastolic blood pressure Provider Name and Address Organization Details Last Updated DateTime 4 152.4 cm 27.3 kg/m2 72146.9 3 g 91 /min 99 % 99 % 121 mm[Hg] 66 mm[Hg] JEREMIAH Ernandez [facility] 4 12:13:45 Date Recorded Body height Body mass index (BMI) Body weight Heart rate Oxygen saturation Oxygen saturation in Arterial blood by Pulse oximetry Systolic blood pressure Diastolic blood pressure Provider Name and Address Organization Details Last Updated DateTime 4 152.4 cm 26.6 kg/m2 68886.9 2 g 68 /min 98 % 98 % 132 mm[Hg] 74 mm[Hg] Marifer Lawton MA [facility] 4 12:04:12 Date Recorded Body height Body mass index (BMI) Body weight Heart rate Oxygen saturation Oxygen saturation in Arterial blood by Pulse oximetry Systolic blood pressure Diastolic blood pressure Provider Name and Address Organization Details Last Updated DateTime 4 152.4 cm 25.6 kg/m2 33254.6 g 77 /min 96 % 96 % 138 mm[Hg] 68 mm[Hg] Loulou Paredes MA [facility] 4 15:00:17 Date Recorded Body height Body mass index (BMI) Body weight Heart rate Oxygen saturation Oxygen saturation in Arterial blood by Pulse oximetry Systolic blood pressure Diastolic blood pressure Provider Name and Address Organization Details Last Updated DateTime 5 152.4 cm 25.4 kg/m2 76214.0 1 g 82 /min 96 % 96 % 120 mm[Hg] 60 mm[Hg] Meg Knapp MA [facility] 5 14:32:29 Social History Question Answer Notes LastModified by Organizat ion Details LastModified Time Tobacco Smoking Status Never Smoker Nichelle Hayes MA [facility], [facility] 05/13/2014 14:33:53 Do You Have An Advance [...] Anxious, Or Unable To Sleep At Night)? [id number] Information not available 06/21/2020 Do You Use [...] High Blood Pressure Y Breast Cancer N Kidney or Bladder Problems N Thyroid Problems N Lung Disease N Blood Clots N Depression N GI Problems N Acne N Breast Problem N Eating [...] LNP-S, PF, 30 mcg/0.3 mL dose 11/29/2020 [place]EM[place] [facility] 04/15/2024 09:45:06 COVID-19, mRNA, LNP-S, PF, 30 mcg/0.3 mL dose 12/27/2020 [place]EM[place] [facility] 04/15/2024 09:45:06 Past Encounters Encounter ID Performer Location Encounter Start Date Encounter Closed Date Diagnosis/Indication Diagnosis SNOMED-CT Code Diagnosis ICD10 Code Diagnosis Note [id number] Aminta (Adult Med) [address] [place] [address] [id number] 05/13/2014 14:18:45 05/13/2014 14:53:24 Dyslipidemia 561256607 Hip pain 28879387 Hypertensive disorder 22332598 Knee pain 57664103 Cough 59230582 [id number] Aminta (Adult Med) [address] [place] [address] [id number] 0 09/10/2014 11:25:14 09/10/2014 17:24:33 Cough 21679065 Dyslipidemia 931130206 Hip pain 27240807 Hypertensive disorder 22338411 Knee pain 70893801 Impaired g lucose tolerance 0895256 [id number] Aminta (Adult Med) [address] [place] [address] [id number] 0 11/19/2014 10:44:02 11/19/2014 15:45:20 Uncontrolled type 2 diabetes mellitus 562697709 Dyslipidemia 139348234 Hypertensive disorder 27963746 Knee pain 54583125 [id number] Aminta (Adult Med) [address] [place] [address] [id number] 01/21/2015 10:51:54 01/21/2015 11:33:08 Dyslipidemia 592092685 E78.5 Hip pain 60341751 M25.55 9 Hypertensive disorder 38 362827 I10 Uncontroll ed type 2 diabetes mellitus 724613970 E11.65 Hernia of abdominal cavity 42257987 K46.9 above umbilicus for 24 years Cough 09268425 R05 [id number] MONICA Pappas (Adult Med) [address] [place] [address] [id number] 03/24/2015 10:06:10 03/24/2015 10:48:21 Diastasis recti 61561647 M62.08 Uncontroll ed type 2 diabetes mellitus 985048803 E11.65 Hip pain 66232629 M25.55 9 [id number] Damon Lemos ([employer]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) [address] [place] [address] [id number] 04/15/2015 14:47:18 04/15/2015 17:18:10 Gynecologic examination 84052227 Z01.419 Z11.51 Venereal d isease screening 983424443 Z11.3 [id number] MONICA Pappas (Adult Med) [address] [place] [address] [id number] 05/26/2015 14:42:03 05/27/2015 17:14:53 Dyslipidemia 965652800 E78.5 Hip pain 38924675 M25.55 9 Uncontroll ed type 2 diabetes mellitus 394737065 E11.65 [id number] MONICA Pappas (Adult Med) [address] [place] [address] [id number] 0 07/28/2015 15:29:46 07/28/2015 16:20:25 Dyslipidemia 454670699 E78.5 Hypertensive disorder 38 725086 I10 Uncontroll ed type 2 diabetes mellitus 758594732 E11.65 [id number] MNOICA Pappas (Adult Med) [address] [place] [address] [id number] 0 11/24/2015 12:24:14 11/24/2015 12:51:31 Sinusitis 92851352 J32.9 Uncontroll ed type 2 diabetes mellitus 924879074 E11.65 Hypertensive disorder 38 970744 I10 Dyslipidemia 883654010 E 78.5 [id number] MONICA Pappas (Adult Med) [address] [place] [address] [id number] 04/12/2016 14:13:09 04/17/2016 13:00:09 Acute sinusitis 61687895 J01.90 Uncontroll ed type 2 diabetes mellitus 744746785 E11.65 Dyslipidemia 897384607 E 78.5 Hypertensive disorder 38 257580 I10 Cough 80510318 R05 [id number] MONICA Pappas (Adult Med) [address] [place] [address] [id number] 06/11/2016 09:47:36 06/11/2016 10:51:52 Type 2 diabetes mellitus 45489053 E11.9 Dyslipidemia 307254342 E 78.5 Hypertensive disorder 38 245772 I10 Uncontroll ed type 2 diabetes mellitus 244265919 E11.65 Screening for malignant neoplasm of colon 033051192 Z12.11 [id number] MONICA Pappas (Adult Med) [address] [place] [address] [id number] 08/13/2016 12:00:00 08/13/2016 12:38:23 Uncontrolled type 2 diabetes mellitus 669666805 E11.65 Screening for malignant neoplasm of colon 899952826 Z12.11 Hypertensive disorder 38 871915 I10 Dyslipidemia 963437780 E 78.5 Type 2 miroslava betes mellitus 07462624 E11.9 [id number] MONICA Pappas (Adult Med) [address] [place] [address] [id number] 10/17/2016 10:26:18 10/17/2016 17:56:25 Dyslipidemia 525654649 E78.5 Hypertensive disorder 38 298562 I10 Uncontroll ed type 2 diabetes mellitus 140819809 E11.65 Obese 182691342 E66.9 [id number] MONICA Pappas (Adult Med) [address] [place] [address] [id number] 12/21/2016 12:24:54 12/21/2016 15:05:19 Type 2 diabetes mellitus 41885845 E11.9 Dyslipidemia 553865385 E 78.5 [id number] MONICA Pappas (Adult Med) [address] [place] [address] [id number] 03/05/2017 11:34:22 03/05/2017 12:14:58 Type 2 diabetes mellitus 53777281 E11.9 Dyslipidemia 865100664 E 78.5 Obese 435201186 E66.9 Hypertensive disorder 38 072331 I10 Bacterial vaginosis 4197 30382 N76.0 [id number] MONICA Pappas (Adult Med) [address] [place] [address] [id number] 05/07/2017 11:36:37 05/07/2017 12:15:49 Type 2 diabetes mellitus 10756918 E11.9 Dyslipidemia 998163057 E 78.5 Hypertensive disorder 38 055257 I10 Hip pain 04896802 M25.55 9 [id number] MONICA Pappas (Adult Med) [address] [place] [address] [id number] 07/02/2017 10:29:11 07/02/2017 11:12:20 Uncontrolled type 2 diabetes mellitus 310768208 E11.65 Type 2 miroslava betes mellitus 92761801 E11.9 Screening for malignant neoplasm of colon 941860152 Z12.11 Obese 004408698 E66.9 Dyslipidemia 856788790 E 78.5 [id number] MD Aminta Carcamo (IM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) [address] [place] [address] [id number] 0 07/23/2017 09:55:47 07/23/2017 15:01:28 Gynecologic examination 36796412 Z01.411 Age appropriat e counseling done. Screening mammography 24 899243 Z12.31 Obese 080312024 E66.9 Counseled About weight loss, diet and excercise. 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 Leukocytes in urine 2757 36638 R82.79 D/W PATIENT Hernia of anterior abdominal wall 275446669 K43.9 Patient say she see a surgeon for it. Advised to f/u. [id number] MONICA Pappas (Adult Med) [address] [place] [address] [id number] 09/03/2017 15:47:32 09/03/2017 16:19:56 Serum creatinine outside reference range 840370636 R79.89 Obese 063490078 E66.9 Type 2 miroslava betes mellitus 59966984 E11.9 Dyslipidemia 275125354 E 78.5 Hypertensive disorder 38 931970 I10 [id number] MONICA Pappas (Adult Med) [address] [place] [address] [id number] 11/04/2017 12:07:51 11/04/2017 13:00:10 Type 2 diabetes mellitus 65267379 E11.9 Dyslipidemia 047359272 E 78.5 Hypertensive disorder 38 863363 I10 Constipation 95399239 K5 9.00 Serum crea tinine outside reference range 887107468 R79.89 [id number] MONICA Pappas (Adult Med) [address] [place] [address] [id number] 01/02/2018 12:19:43 01/02/2018 13:37:57 Type 2 diabetes mellitus 95068831 E11.9 Obese 078311288 E66.9 Dyslipidemia 012454899 E 78.5 Hypertensive disorder 38 237901 I10 Hip pain 77516317 M25.55 9 [id number] MONICA Pappas (Adult Med) [address] [place] [address] [id number] 03/04/2018 13:54:21 03/04/2018 14:55:34 Essential hypertension 49149131 I10 Type 2 miroslava betes mellitus 79046645 E11.9 Dyslipidemia 201587336 E 78.5 Screening for malignant neoplasm of colon 598047067 Z12.11 [id number] MONICA Pappas (Adult Med) [address] [place] [address] [id number] 05/06/2018 11:09:40 05/06/2018 12:29:52 Constipation 25544590 K59.00 Serum crea tinine outside reference range 289150876 R79.89 Obese 483318098 E66.9 Type 2 miroslava betes mellitus 75156722 E11.9 Dyslipidemia 531962023 E 78.5 Hip pain 45241345 M25.55 9 [id number] MONICA Pappas (Adult Med) [address] [place] [address] [id number] 0 07/08/2018 14:27:04 07/08/2018 15:31:59 Type 2 diabetes mellitus 45389225 E11.9 Hallux valgus 429221700 M20.11 right worse than left Screening for malignant neoplasm of colon 415752931 Z12.11 Obese 447275543 E66.9 Dyslipidemia 799679121 E 78.5 Hypertensive disorder 38 456062 I10 Hip pain 79479985 M25.55 9 [id number] MONICA Pappas (Adult Med) [address] [place] [address] [id number] 09/05/2018 13:47:22 09/05/2018 14:43:42 Type 2 diabetes mellitus 82080537 E11.9 Dyslipidemia 548024465 E 78.5 Hypertensive disorder 38 249015 I10 Obese 182823527 E66.9 Hip pain 93794278 M25.55 9 [id number] MONICA Pappas (Adult Med) [address] [place] [address] [id number] 12/08/2018 10:53:42 12/09/2018 09:22:23 Type 2 diabetes mellitus 81548758 E11.9 Dyslipidemia 995854181 E 78.5 Screening for malignant neoplasm of colon 687276176 Z12.11 Hallux valgus 215283784 M20.11 right worse than left Obese 578539293 E66.9 Hypertensive disorder 38 924603 I10 Serum crea tinine outside reference range 263017658 R79.89 [id number] MONICA Pappas (Adult Med) [address] [place] [address] [id number] 0 02/24/2019 10:32:27 02/25/2019 10:13:02 Type 2 diabetes mellitus 12814767 E11.9 Dyslipidemia 983909023 E 78.5 Hallux valgus 547468495 M20.11 right worse than left Hypertensive disorder 38 695364 I10 Obese 584217224 E66.9 [id number] MONICA Pappas (Adult Med) [address] [place] [address] [id number] 0 04/27/2019 11:17:10 04/27/2019 11:58:57 Screening for malignant neoplasm of breast 418642180 Z12.39 Hypertensive disorder 38 985948 I10 Dyslipidemia 942540198 E 78.5 Type 2 miroslava betes mellitus 64155658 E11.9 Hip pain 89957115 M25.55 9 Obese 103691327 E66.9 [id number] MONICA Pappas (Adult Med) [address] [place] [address] [id number] 02/01/2020 08:29:14 02/01/2020 16:43:43 Hypertensive disorder 30370150 I10 Dyslipidemia 258050698 E 78.5 Type 2 miroslava betes mellitus 58241405 E11.9 Carcinoma of female breast 320994101 C50.627 [id number] MONICA Pappas (Adult Med) [address] [place] [address] [id number] 03/03/2020 08:02:53 03/04/2020 09:37:56 Dyslipidemia 514808487 E78.5 Hypertensive disorder 38 274845 I10 Hallux valgus 922842605 M20.11 right worse than left Knee pain 10299878 M25.5 69 Type 2 miroslava betes mellitus 48416042 E11.9 [id number] MONICA Pappas (Adult Med) [address] [place] [address] [id number] 04/19/2020 08:08:22 04/19/2020 11:26:58 Constipation 11504274 K59.00 Dyslipidemia 535481108 E 78.5 Hallux valgus 954090338 M20.11 right worse than left Hip pain 91960469 M25.55 9 Hypertensive disorder 38 325199 I10 Obese 974663579 E66.9 Type 2 miroslava betes mellitus 09130920 E11.9 [facility] risk of nutritional deficit 466895019 Z91.89 [id number] MONICA Pappas (Adult Med) [address] [place] [address] [id number] 05/20/2020 08:01:28 05/20/2020 12:13:27 Type 2 diabetes mellitus 93874620 E11.9 Dyslipidemia 636479425 E 78.5 Hip pain 43493209 M25.55 9 Hyperlipidemia 75034154 E78.5 Hypertensive disorder 38 851855 I10 Osteopenia 451814926 M85 .80 [id number] MONICA Pappas (Adult Med) [address] [place] [address] [id number] 0 06/21/2020 09:54:39 06/21/2020 11:57:18 Dyslipidemia 900371924 E78.5 Hip pain 10037761 M25.55 9 Hyperlipidemia 68570135 E78.5 Hypertensive disorder 38 672072 I10 Obese 178081318 E66.9 Osteopenia 504482307 M85 .80 Type 2 miroslava betes mellitus 38494205 E11.9 [id number] MONICA Pappas (Adult Med) [address] [place] [address] [id number] 0 07/21/2020 08:04:04 07/21/2020 12:32:20 Type 2 diabetes mellitus 50963890 E11.9 Osteopenia 398141317 M85 .80 Obese 098511906 E66.9 Hyperlipidemia 46709446 E78.5 Hypertensive disorder 38 178402 I10 [id number] MONICA Pappas (Adult Med) [address] [place] [address] [id number] 08/19/2020 15:47:47 08/23/2020 09:21:49 Type 2 diabetes mellitus 33723488 E11.9 Hyperlipidemia 24825852 E78.5 Hypertensive disorder 38 018966 I10 [id number] MONICA Pappas (Adult Med) [address] [place] [address] [id number] 0 08/22/2021 11:56:42 08/22/2021 17:01:06 Type 2 diabetes mellitus 70671897 E11.9 Hyperlipidemia 18544395 E78.5 Hypertensive disorder 38 656768 I10 Hallux valgus 422444367 M20.11 right worse than left [id number] MONICA Pappas (Adult Med) [address] [place] [address] [id number] 11/21/2021 14:13:19 11/22/2021 07:32:39 Hypertensive disorder 05027465 I10 Hyperlipidemia 12640041 E78.5 HIV screening 323926664 Z11.4 Osteopenia 140209287 M85 .80 Type 2 miroslava betes mellitus 36184599 E11.9 [id number] MD Aminta Gregg (Adult Med) [address] [place] [address] [id number] 02/19/2022 15:09:51 02/23/2022 12:39:10 Overweight 408260597 E66.3 BMI is 27.3 she has been advised to watch her diabetic low salt , low animal fat diet, exercise and keep the weight down. Dyslipidemia 532788146 E 78.5 Low animal fat diet, on lovastatin . Hypertensive disorder 38 249809 I10 On low salt diet, Avoid NSAID or OTC decongesta nt if possible, on losartan., Will continue to monitor blood pressure, this is first visit with this provider. Type 2 miroslava betes mellitus 47041586 E11.9 Diabetic diet, on metformin, and januvia, has enough refills. Administra tion of pneumococcal vaccine 43855531 Z23 She refuses 02-19-2022 . Administra tion of diphtheria, pertussis, and tetanus vaccine 071690438 Z23 She refuses, 02-19-2022 . Administra tion of SARS-CoV-2 mRNA vaccine 0882898968 Z23 She refuses 02-19-2022 . History of malignant neoplasm of breast 671894243 Z85.3 Right breast, under the care of specialist . [id number] MD Aminta Gregg (Adult Med) [address] [place] [address] [id number] 0 06/27/2022 14:11:22 06/28/2022 15:03:44 Type 2 diabetes mellitus 79184728 E11.9 Diabetic diet, on metformin, and januvia, has enough refills. Essential hypertension 78832220 I10 BP as 06-27-22. is 134/80. low salt diet, Avoid NSAID, or OTC decongesta nt. med refill. Primary ma lignant neoplasm of female breast 85918697 C50.919 since 2019, on chemo therapy, under the care of her oncologist . Hypertensive disorder 38 949051 I10 On low salt diet, Avoid NSAID or OTC decongesta nt if possible, on losartan., Will continue to monitor blood pressure, this is first visit with this provider. Hyperlipidemia 48366013 E78.5 Low animal fat diet. [id number] Hayden Alcazar MD [facility] (Adult Med) [address] [place] [address] [id number] 09/26/2022 12:07:30 09/27/2022 12:36:11 Carcinoma of female breast 809653295 C50.919 Under the care of her oncologist . Dyslipidemia 068073755 E 78.5 Low animal fat diet, on lovastatin . Hyperlipidemia 61080693 E78.5 Low animal fat diet. Hypertensive disorder 38 039681 I10 On low salt diet, Avoid NSAID or OTC decongesta nt if possible, on losartan., Will continue to monitor blood pressure, this is first visit with this provider. As 09-26-22, BP is 142/72. will continue med and monitor blood pressure. Osteopenia 185991983 M85 .80 On calcium and Vitamin D. Type 2 miroslava betes mellitus 40093853 E11.9 Diabetic diet, on metformin, and januvia, has enough refills. Metformin and januvia. Dyslipidem ia due to type 2 diabetes mellitus 5913317726 02 E78.5 Low animal fat diet. avoid alcohol. tient already on lovastatin . [id number] MD Aminta Gregg (Adult Med) [address] [place] [address] [id number] 0 12/27/2022 11:48:16 12/28/2022 10:16:49 Primary malignant neoplasm of female breast 21994120 C50.919 since 2019, on chemo therapy, under the care of her oncologist . Postmenopa usal osteopenia 152870086 M85.80 Advised to be on calcium plus vitamin D, she agreed. T-score on hip was negative 2, [id number] MD Aminta Gregg (Adult Med) [address] [place] [address] [id number] 04/29/2023 12:02:32 05/01/2023 14:50:29 Osteopenia 774910644 M85.80 On calcium and Vitamin D. Mammograph ic mass of right breast 8256042498 9927842 R92.8 Will be in August 14. Follow up . Hypertensive disorder 38 969378 I10 On low salt diet, Avoid NSAID or OTC decongesta nt if possible, on losartan., Will continue to monitor blood pressure, this is first visit with this provider. As 09-26-22, BP is 142/72. will continue med and monitor blood pressure. . BP is 121/66 today 04-29-23. Hyperlipidemia 24791376 E78.5 Low animal fat diet. Dyslipidemia 884012589 E 78.5 Low animal fat diet, on lovastatin . Carcinoma of female breast 556792851 C50.919 Under the care of her oncologist . Type 2 miroslava betes mellitus 55030458 E11.9 Diabetic diet, on metformin, and januvia, has enough refills. Metformin and januvia. Dyslipidem ia due to type 2 diabetes mellitus 9160245860 02 E78.5 Low animal fat diet. avoid alcohol. tient already on lovastatin . [id number] MD Aminta Sweeney (Adult Med) [address] [place] [address] [id number] 0 07/30/2023 11:28:17 07/30/2023 12:51:23 Type 2 diabetes mellitus 39187096 E11.9 Essential hypertension 55676157 I10 Hyperlipidemia 40384346 E78.5 History of malignant neoplasm of breast 628453843 Z85.3 [id number] MD Aminta Sweeney (Adult Med) [address] [place] [address] [id number] 0 01/08/2024 14:46:52 01/08/2024 16:08:53 Essential hypertension 60947353 I10 Type 2 miroslava betes mellitus 53692857 E11.9 Hyperlipidemia 72348416 E78.5 Serum crea tinine outside reference range 457312960 R79.89 Osteopenia 409197907 M85 .80 [id number] MD Aminta Sweeney (Adult Med) [address] [place] [address] [id number] 0 04/15/2024 14:17:40 04/15/2024 15:03:25 Body mass index 25-29 - overweight 329664462 Z68.25 Overweight 279183510 E66 .3 Type 2 miroslava betes mellitus 93200687 E11.9 Dyslipidemia 152004551 E 78.5 Essential hypertension 23186506 I10 Chronic ki dney disease stage 3 324323640 N18.30 Health Concerns Section Related Observation LastModified by Organization Detai ls LastModified Time None Recorded Concern Status LastModified by Organization Details LastModified Time None Recorded Advance Directives Directive N: Payers Encounter Date Sequence Insurance Name Policy Number Policy Dumont Covered Member ID Dumont Member ID Guarantor Name 12/27/2022 1 [facility] ON OR AFTER 09/22/20 (MEDICAID REPLACEMENT - HMO) Suzy Fontanez [id number] Suzy Fontanez 04/29/2023 1 [facility] ON OR AFTER 09/22/20 (MEDICAID REPLACEMENT - HMO) Suzy Fontanez [id number] Suzy Fontanez 07/30/2023 1 [facility] ON OR AFTER 09/22/20 (MEDICAID REPLACEMENT - HMO) Suzy Fontanez [id number] Suzy Fontanez 01/08/2024 1 [facility] ON OR AFTER 09/22/20 (MEDICAID REPLACEMENT - HMO) Suzy Fontanez [id number] Suzy Fontanez 04/15/2024 1 [facility] ON OR AFTER 09/22/20 (MEDICAID REPLACEMENT - HMO) Suzy Fontanez [id number] Suzy Fontanez Notes Date Note Type Note [...] 2023. Hayden Alcazar MD Attn: Accounting, [address] [place], [address], [place] 12/27/2022 15:01:07 04/29/2023 text/html Office visit, LUANNE BARROS. type 2 DM. dyslipidemia, right breast cancer, osteopenia, uneven legs. and hypertension. Check up and med refills if any. No chest pain, no shortness of breath, no fever. Regular appetite and bowel habit. ROS as noted in HPI. Hayden Alcazar MD Attn: Accounting, [address] [place], [address], [place] [facility] 04/29/2023 12:52:52 07/30/2023 text/html Follow-up medica l problems history of diabetes hypertension hyperlipidemia breast cancer with history of lumpectomy she is under the care of her oncologist feeling pretty good today without any specific Sourav Frye MD Attn: Accounting, [address] [facility], [place], [address], [place] [facility] 08/10/2023 00:01:47 01/08/2024 text/html hypertension blo od pressure looks controlled possibly could be a little bit lower given her CKD 3. 2. CKD 3 we will be seeing her anesthesiologist but she is asymptomatic. 3. Diabetes no polyphagia polydipsia we will check blood work. History of breast cancer stable osteopenia no bone pain at this time she is taking some calcium with vitamin-D Sourav Frye MD Attn: Accounting,[address], [place], [address], [place] [facility] 02/01/2024 21:24:35 04/15/2024 text/html hypertension no headache or dizziness her blood pressure is well controlled. Hyperlipidemia does try to follow low-fat diet she was taking lovastatin. Diabetes no polyphagia no polydipsia CKD 4 asymptomatic they are in the process of working up the etiology for completeness sake Sourav Frye MD Attn: Accounting,[address], [place], [address], [place] [facility] 04/19/2024 17:28:55 OBGyn Episode Ob Episode Information Episode Created Date Number of Fetuses Patient Bloodtype Patient rh Status Prepregnancy Weight lbs Domestic Partner Domestic Partner Phone Father Name Over Hauler Helper Status 04/15/19 16 1 CLOSED Fetus Data First Name Last Name Admitted to NICU Weight (g) Sex Living Outcome Pediatric Complications Fetus ID Race Codes Race Delivery Type 3628.73 6 M Prematur e [id number] Michael Calculation Initial Michael Date Initial Exam [...] Complications Tubal Sterilization Discharge Date Comments [facility] idural [facility] [place] Discharge Information Feeding Method Contraceptive Method Maternal HG B and HCT Levels Ob Episode Information Episode Created Date Number of Fetuses Patient Bloodtype Patient rh Status Prepregnancy Weight lbs Domestic Partner Domestic Partner Phone Father Name Over Hauler Helper Status 04/15/19 16 1 CLOSED Fetus Data First Name Last Name Admitted to NICU Weight (g) Sex Living Outcome Pediatric Complications Fetus ID Race Codes Race Delivery Type 4110.67 75 F Full Term [id number] Michael Calculation Initial Michael Date Initial Exam [...]
--- OUTSIDE RECORDS SUMMARY | 2024-06-15 12:16 | XMS_ITS | Encounter Summary ---
Author Organization [facility] Address [address] [place] [address] Care Team Providers Care Funeral Director Name Role Phone Hayden Alaczar MD Primary Care Provider [phone] Encounter Details Date Type Department Care Team (Late st Contact Info) Description 08/26/2019 Chart Note [facility] Radiation Therapy [address] [place] [phone] Alma Hernán[place] [address] [place] [address] Social History Tobacco Use Types [...] Care Team (Late st Contact Info) Description 12/07/2024 11:30 AM CDT Office Visit [facility] Oncology and Hematology - [place] [address] [facility] [address] [place] [address] Nik Castro MD [address] [facility] [address] [place] [address] documented as of this encounter Visit Diagnoses Not on filedocumented in this encounter Care Teams Funeral Director Relationship Specialty Start Date End Date Hayden Alcazar MD [address] [place] [address] PCP - General Internal Medicine 11/08/22 documented as of this encounter
--- OUTSIDE RECORDS SUMMARY | 2024-06-15 12:16 | XMS_ITS | Clinical Summary ---
Author Organization [facility] Address [address] [place] [address] Care Team Providers Care Claims Collector Name Role Phone Hayden Alcazar MD Primary Care Provider [phone] Allergies No known active allergies Medications metFORMIN [...] sugar diagnostic (ONETOUCH ULTRA BLUE TEST STRIP [facility] OneTouch Ultra Blue Test Strip Active fenofibrate [...] Encounters Date Type Department Care Team Description 05/26/2024 External Device Data STL ABSTRACTION Provider, Abstract 05/21/2024 2:00 PM [employer] SALESPERSON Office Visit [facility] Oncology and Hematology [facility] [address] [place] [address] Nik Castro MD Breast cancer screening by mammogram (Primary Dx); Malignant neoplasm of upper-outer quadrant of right breast in female, estrogen receptor positive (CMS/HCC) 05/13/2024 External Device Data STL ABSTRACTION Provider, Abstract 05/12/2024 External Device Data STL ABSTRACTION Provider, Abstract 04/21/2024 External Device Data STL ABSTRACTION Provider, Abstract 04/15/2024 External Device Data STL ABSTRACTION Provider, Abstract 04/15/2024 External Device Data STL ABSTRACTION Provider, Abstract 04/08/2024 External Device Data STL ABSTRACTION Provider, Abstract 03/31/2024 External Device Data STL ABSTRACTION Provider, Abstract from Last 3 Months Family History Medical [...] Sign Reading Time Taken Comments Blood Pressure 137/86 05/21/2024 2:07 PM [employer] SALESPERSON Pulse 80 05/21/2024 2:02 PM [employer] SALESPERSON Temperature 36.2 C (97.2 F) 05/21/2024 2:02 PM [employer] SALESPERSON Respiratory Rate 15 05/21/2024 2:02 PM [employer] SALESPERSON Oxygen Saturation 95% 05/21/2024 2:02 PM [employer] SALESPERSON Inhaled Oxygen Concentration - - Weight 58.2 kg (128 lb 6.4 oz) 05/21/2024 2:02 P M [employer] SALESPERSON Height 152.4 cm (5') 01/23/2022 11:40 AM CDT Body Mass Index 25.08 01/23/2022 11:40 AM CDT Plan of Treatment Upcoming Encounters Date Type Department Care Team (Late st Contact Info) Description 12/07/2024 11:30 AM CDT Office Visit [facility] Oncology and Hematology [facility] [address] [facility] [address] [place] [address] Nik Castro MD [address] [facility] [address] [place] [address] Health Maintenance Due Date Last Done Comments DIABETES ANNUAL FOOT EXAM 1974 DIABETES ANNUAL RETINAL EXAM 1974 DIABETES HBA1C Q 6 MONTHS 1974 DIABETES MICROALBUMIN ANNUAL SCREEN 1974 LDL CHOLESTEROL ANNUAL 1974 DTAP/TDAP/TD VACCINES (1 - Tdap) 10/22/1975 PNEUMOCOCCAL VACCINE 50+ YEA RS (1 of 2 - PCV) [...] Procedure Name Priority Date/Time Associated Diagnosis Comments MAMMO SCREENING BILAT Routine 08/15/2023 9:03 AM CDT XR DEXA BONE DENSITY AXIAL 1 OR MORE SITES Routine 05/06/2020 Osteopenia of multiple sites from Last 3 Months or Most Recently Relevant to Health Maintenance Results * MAMMO SCREENING BILAT (08/15/2023 9:03 AM CDT) Anatomical Region Laterality Modality Breast Bilateral Mammography Nik Castro MD MAMMO ORDERABLES Final Result * XR DEXA BONE DENSITY AXIAL 1 OR MORE SITES (05/06/2020) Anatomical Region Laterality Modality Other Nik Castro MD DIAGNOSTIC IMAGING ORDERABLES F inal Result from Last 3 Months or Most Recently Relevant to Health Maintenance Insurance [facility] MEDICA[facility] Care Teams Claims Collector Relationship Specialty Start Date End Date Hayden Alcazar MD [address] [place] [phone] PCP - General Internal Medicine 11/08/22
== END 2024-06-15 10:30 | disposition home or self-care (01) ==
LOC: ANHLAB 10:30
PROVIDERS: PCP Internal Medicine; Visit Provider Internal Medicine Nephrology
DX: I12.9 Hypertensive chronic kidney disease with stage 1 through stage 4 chronic kidney disease, or unspecified chronic kidney disease (principal); E11.22 Type 2 diabetes mellitus with diabetic chronic kidney disease; N18.32 Chronic kidney disease, stage 3b; N25.81 Secondary hyperparathyroidism of renal origin; E55.9 Vitamin D deficiency, unspecified
CPT/HCPCS: 36415; 80069; 82306; 82570; 83970; 84156

== ENCOUNTER 2024-10-20 09:19 | Outpatient (CLI) | payer OTHER, SELFPAY ==
--- NOTE | ~2024-10-20 | MM_ITS ---
EXAMINATION: MM screening joy BI w monik HISTORY: Screening TECHNIQUE: Craniocaudal and mediolateral oblique 3-D tomosynthesis images were obtained and synthetic 2-D images were generated. CAD analysis was submitted and interpreted. COMPARISON: Comparison to multiple prior studies sequentially, with oldest reviewed study dated 05/06. BREAST PARENCHYMAL COMPOSITION: Not dense: There are scattered areas of fibroglandular density. FINDINGS: There is distortion upper outer quadrant of the right breast consistent with previous lumpe ctomy. There is no evidence of suspicious mass, calcification, or architectural distortion to suggest malignancy in either breast. There has been no suspicious interval change. IMPRESSION: 1. No mammographic evidence of malignancy. 2. Recommend routine screening mammography in one year. BI-RADS Category 2: Benign finding(s). Reviewed, dictated and finalized at location []
--- OUTSIDE RECORDS SUMMARY | 2024-10-20 09:32 | XMS_ITS | Data Portability ---
Author Organization [facility], Main Office Address [address] [place] [address] Care Team Providers Care Hand Finisher Name Role Phone SOURAV JAIMES Primary Care Provider SOURAV JAIMES Referring Provider [phone] Assessment Encounter Date Assessment Date Assessment LastModified by Organization Details LastModified Time 10/13/2024 10/13/2024 This note is dictated and transcribed by [employer]. Museum Attendant variances may occur. Despite proofreading, typographical errors may occur. Occasional wrong-word or '[id number]' substitutions may have occurred due to the inherent limitations of voice recording. Read the chart carefully and recognize, using context, where substitutions have occurred. [email or web address] Not available 10/13/2024 09:53:03 Plan of Treatment Reminders Order Date Submit Date Provider Last Modified By Organization Details Last Modified Time Details Appointments Establish ed Patient 10 2025 09:10A M Bryan Riggins DPM Not available Not available Not available Lab None recorded. Referral None recorded. Procedures None recorded. Surgeries None recorded. Imaging None recorded. Medication Orders None recorded. Patient TargetsNo targets recorded. Patient InstructionsNo instructions recorded. Reason for Referral None Reported. Problems Name Problem SNOMED Code Status Onset Date Resolution Date Notes Provider Name and Address Organization Details Recorded Time Diastasis recti 45560423 Active Not Available [facility] 3 17:28:54 Diabetes mellitus 37787321 Active Not Available [facility] 3 17:28:54 Type 2 diabetes mellitus 73334271 Active 025 Bryan Riggins DPM [address] [facility] [address], [place], [address] , [facility] [employer] 5 09:54:41 Dystrophia unguium 05823130 Active 025 Bryan Riggins DPM [address] [facility], [place], [address] , [employer] [facility] [employer] [facility] 5 09:54:47 Problem Notes None recorded. Procedures Surgical History Date Name Laterality Status Provider Name and Address Organization Details Recorded Time 5 Nail Debridement completed Bryan [facility]iggins DPM [address] [facility], [facility] [address], [place], [address], [employer] [facility] [employer] [facility] 10/13/2024 09:53:56 section completed Dena Octavio [facility] [employer] [facility] 10/13/2024 09:38:38 finger operation completed Dena Octavio CT Real Intent [facility] [employer] [facility] 10/13/2024 09:39:33 operation on breast completed [email or web address] CT Real Intent [facility] [employer] [facility] 10/13/2024 09:39:43 Imaging Results None recorded. Procedure Notes None recorded. Medical Equipment None Reported. Allergies No known drug allergies Medications Name Sig Start Date Stop Date Status Note LastModified by Organization Details LastModified Time losartan 50 mg tablet TAKE 1 TABLET [...] BY MOUTH ONCE DAILY IN THE EVENING active Not Available Not Available No t Available Alcohol Prep Pads active Not Available Not Available Not Available anastrozole active Not Available Not A vailable Not Available calcium active Not Available Not Avail able Not Available Januvia 100 mg tablet TAKE 1 TABLET BY MOUTH ONCE DAILY IN THE MORNING active Not Available Not Available No t Available Januvia active Not Available Not Avail able Not Available calcium 600 mg (as carbonate)-vi tamin D3 10 mcg (400 unit) tablet TAKE 1 TABLET BY MOUTH TWICE DAILY WITH MEALS active Not Available Not Available No t Available fenofibrate 120 mg tablet TAKE 1 TABLET BY MOUTH ONCE DAILY AFTER A MEAL active Not Available Not Available No t Available GaviLyte-G 236 gram-22.74 gram-6.74 gram-5.86 gram oral solution active Not Available Not Available Not Available lancets 30 gauge active Not Available Not Available Not Available Safety Seal Lancets 28 gauge active Not Available Not Available Not Available Farxiga 10 mg tablet TAKE 1 TABLET BY MOUTH ONCE DAILY active Not Available Not Available No t Available Farxiga 5 mg tablet TAKE 1 TABLET BY MOUTH ONCE DAILY active Not Available Not Available No t Available Farxiga active Not Available Not Avail able Not Available True Metrix Glucose Test Strip active Not Available Not Available Not Available OneTouch Ultra Blue Test Strip active Not Available Not Available N ot Available OneTouch Delica Plus Lancing Device kit USE TO TEST BLOOD SUGARS DIRECTED active Not Available Not Available No t Available Vitals Date Recorded Heart rate Oxygen saturation Oxygen saturation in Arterial blood by Pulse oximetry Body temperature Systolic And Diastolic Provider Name and Address Organization Details Last Updated DateTime 91 /min 99 % 99 % 97.3 [degF] 151/104 mm[Hg] RASHID Rivera [facility] 09:42:15 Date Recorded Body height Body mass index (BMI) Body weight Provider Name and Address Organization Details Last Updated DateTime 10/13/2024 152.4 cm 25 kg/m2 56537.82 g Dena Priest [facility] 10/13/2024 09:41:22 Social History Question Answer Notes LastModified by Phase Eight ion Details LastModified Time Tobacco Smoking Status Never Smoker Dena patel [facility] 10/13/2024 09:38:27 What Is Your Level Of Caffeine Consumption? Occasional Information not available 10/13/2024 What Was The Date Of Your Most Recent Tobacco Screening? 10/13/2024 Information not available 10/13/2024 Has Tobacco Cessation Counseling Been Provided? No Information not available 10/13/2024 Sex: Unknown Functional Status Question Answer Note LastModified by Organizat ion Details LastModified Time Do you use any illicit or recreational drugs? No Information not available 10/13/2024 Do you or have you ever used any other forms of tobacco or nicotine? No Information not available 10/13/2024 What is your level of alcohol consumption? None Information not available 10/13/2024 What is your occupation? none [id number] Information not available 05/23/2022 Mental Status None recorded. Family History Relationship Description Onset Age of this Age Resolved Age Notes LastModified by Organization Details LastModified Time Maternal Grandmother Diabetes mellitus Not available 2024 09:36:56 Mother Diabetes mellitus Not available 2024 09:36:56 Mother Congenital heart disease Not available 2024 09:37:34 Father Arthritis Not available 10/13/2024 09:37:04 Father Hypertensive disorder Not available 2024 09:37:19 Father Congenital heart disease Not available 2024 09:37:34 Father Malignant neoplastic disease Not available 2024 09:37:59 Paternal Aunt Malignant neoplastic disease Not available 2024 09:37:59 Medical History Condition Response DIABETES, TYPE Y CANCER: SPECIFY Y HEARTBURN / REFLUX Y RADIATION / CHEMOTHERAPY Y HYPERTENSION Y HIGH CHOLESTEROL / HYPERLIPIDEMIA Y Gynecological HistoryNo gynecological history recorded. Obstetrics History GPAL:G 0 P 0 0 0 0 Past Encounters Encounter ID Performer Location Encounter Start Date Encounter Closed Date Diagnosis/Indication Diagnosis SNOMED-CT Code Diagnosis ICD10 Code Diagnosis Note [id number] Bryan Riggins DPM [facility] [place] [address] [address] 10/13/2024 09:34:57 10/20/2024 10:25:15 Type 2 diabetes mellitus 50873938 E11.9 Patient educated on neuropathy , diabetes, diabetic diet, and daily foot exams. Patient is to check feet daily for new wounds, blisters, redness to prevent infection and ulceration s to the feet. Patient will return to clinic in 3 months for diabetic foot workup. Dystrophia unguium 30560 009 L60.3 Nails 1 through 10 were debrided with sharp mechanical debridemen t without incident. Nails were debrided and greater than 50% length and thickness where needed. Health Concerns Section Related Observation LastModified by Organization Detai ls LastModified Time None Recorded Concern Status LastModified by Organization Details LastModified Time None Recorded Advance Directives Directive None Recorded Payers Insurance Date Sequence Insurance Name Policy Number Policy Dumont Covered Member ID Dumont Member ID Guarantor Name 10/13/2024 1 [facility] - DOS PRIOR TO 2020 (MEDICAID REPLACEMENT - HMO) Suzy Fontanez [id number] Suzy Fontanez 10/13/2024 1 [facility] (MEDICAID REPLACEMENT - HMO) Suzy Fontanez [id number] Suzy Fontanez OBGyn Episode No OBEpisode recorded.
--- OUTSIDE RECORDS SUMMARY | 2024-10-20 09:32 | XMS_ITS | Encounter Summary ---
Author Organization [facility] Address [address] [place] [address] Care Team Providers Care Hand Packager Name Role Phone Hayden Alcazar MD Primary Care Provider [phone] Encounter Details Date Type Department Care Team (Late st Contact Info) Description 08/26/2019 Chart Note [facility] Radiation Therapy [address] [place] [phone] Alma Hernán[place] [address] [place] [address] Social History Tobacco Use Types [...] Description 12/07/2024 11:30 AM CDT Office Visit [facility] Oncology and Hematology - [place] [address] [facility] [address] [place] [address] Nik Castro MD [address] [facility] [address] [place] [address] documented as of this encounter Visit Diagnoses Not on filedocumented in this encounter Care Teams Hand Packager Relationship Specialty Start Date End Date Hayden Alcazar MD [address] [place] [address] PCP - General Internal Medicine 11/08/22 documented as of this encounter
--- OUTSIDE RECORDS SUMMARY | 2024-10-20 09:32 | XMS_ITS | Data Portability ---
Author Organization [facility] LUIS ENRIQUEKaylan VelázquezWestdale Joao Address [address] [facility] BENJAMIN Ortiz [address] Care Team Providers Care Insect Control Inspector Name Role Phone MARTIROELAMARIS Pumper Gauger [phone] SOURAV FRYE Primary Care Provider [phone] Assessment Encounter Date Assessment Date Assessment LastModified by Organization Details LastModified Time 07/30/2023 07/30/2023 Will get blood work continue current therapy stay up-to-date on eye doctors appointment she has 23 November believes that she is due for colonoscopy next year targets for A1c lipid and blood pressure been discussed [email or web address] Not available 08/10/2023 00:01:26 01/08/2024 01/08/2024 we will continue current therapy blood work has been ordered she has been advised to see podiatry for foot exam and her eye doctor for a diabetic eye exam follow up 4 months [email or web address] Not available 02/01/2024 21:24:16 04/15/2024 04/15/2024 continue [...] will set up with diabetic foot exam [email or web address] Not available 04/19/2024 17:28:29 08/18/2024 08/18/2024 We will continue current therapy follow up with me in 4 months increase the Farxiga 10 mg just had blood work done with renal we will get that encouraged to get her diabetic eye exam and diabetic foot exam [email or web address] Not available 09/12/2024 13:11:13 Plan of Treatment Reminders Order Date Submit Date Provider Last Modified By Organization Details Last Modified Time Details Appointments ANY 15 2024 10:15A Horacio Frye MD Not available Not available Not available Lab HbA1c (hemoglob in A1c), blood 2024 025 [facility], [address], [address], [place], [address], 08/19/2024 06:15:17 CMP, serum or plasma 2024 025 [facility], [address], [address], [place], [address], 08/19/2024 06:15:15 lipid panel, serum 2024 025 [facility], [address], [address], [place], [address], 08/19/2024 06:15:15 HbA1c (hemoglob in A1c), blood 2023 024 [facility], [address], [address], [place], [address], 01/09/2024 06:23:22 lipid panel, serum 2023 024 [facility], [address], [address], [place], [address], 01/09/2024 06:24:13 CMP, serum or plasma 2023 024 [facility], [address], [address], [place], [address], 01/09/2024 06:24:14 CBC w/ auto diff 2023 024 [facility], [address], [address], [place], [address], 01/09/2024 06:24:16 HbA1c (hemoglob in A1c), blood 2023 024 [facility], [address], [address], [place], [address], 07/31/2023 10:13:36 albumin/c reatinine , mass ratio, urine 2023 024 [facility], [address], [address], [place], [address], 07/31/2023 10:13:35 CBC w/ auto diff 2023 024 [facility], [address], [address], [place], [address], 07/31/2023 06:17:08 CMP, serum or plasma 2023 024 [facility], [address], [address], [place], [address], 07/31/2023 06:17:07 lipid panel, serum 2023 024 [facility], [address], [address], [place], [address], 07/31/2023 06:17:06 HbA1c (hemoglob in A1c), blood 2023 024 [facility] In-Office Order, Internal Use Only DO Not Attach Compendium DO Not Attach Compendium, Do Not Delete/merge, [id number] 04/29/2023 12:52:28 Referral podiatris t referral 2024 025 kaylee Riggins DPM, [address] [facility], [address], [place], [address], 08/18/2024 11:32:41 Procedures None recorded. Surgeries None recorded. Imaging None recorded. [facility] [address] [facility] [address] [facility], [address] [place], [address], 08/18/2024 17:32:26 metformin 500 mg tablet [address] [facility], [address] [place], [address], 08/18/2024 12:17:14 Januvia 100 mg tablet [address] [facility] [facility], [address] [place], [address], 08/18/2024 12:17:14 OneTouch Verio test strips [address] [facility] [facility], [address] [place], [address], 08/18/2024 12:17:14 losartan 50 mg tablet [address] [facility] [facility], [address] [place], [address], 08/18/2024 12:17:14 lovastati n 20 mg tablet [address] [facility] [facility], [address] [place], [address], 08/18/2024 12:17:14 calcium 600 mg (as carbonate )-vitamin D3 10 mcg (400 unit) tablet [address] [facility] [facility], [address] [place], [address], 08/18/2024 12:17:14 OneTouch Verio test strips [address] [facility], [address] [place], [address], 07/30/2023 13:34:13 losartan 50 mg tablet 2023 024 [facility], [address] [place] [address], [address], 04/29/2023 12:52:45 Januvia 100 mg tablet 2023 024 [facility], [address] [place] [address], [address], 04/29/2023 12:52:46 metformin 500 mg tablet 2023 024 [facility], [address] [place] [address], [address], 04/29/2023 12:52:44 calcium 600 mg (as carbonate )-vitamin D3 10 mcg (400 unit) tablet 2023 024 [facility], [address] [place] [address], [address], 04/29/2023 12:52:45 omega-3 acid ethyl esters 1 gram capsule 2023 024 [facility], [address] [place] [address], [address], 04/29/2023 12:52:43 fenofibra te 120 mg tablet 2023 024 [facility], [address] [place] [address], [address], 02/03/2024 11:26:43 lovastati n 20 mg tablet 2023 024 [facility], [address] [place] [address], [address], 04/29/2023 12:52:45 Patient TargetsNo targets recorded. 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 Referral for Type 2 diabetes mellitus Referring Physician: Sourav Frye, Internal Medicine, Encounter Date: 04/15/2024 Results Created Date Observation Date Name Description Value Unit Range Abnormal Flag Note LastModifiedBy Organization Detail LastModifiedTime 04/29/19 24 04/29/2023 HbA1c (hemo globi n A1c), blood HbA1c 5.7 % today Not Available In-Office Order Internal Use Only DO Not Attach Compendium DO Not Attach Compendium, Do Not Delete/merge, [id number] 04/29/2023 12:48:34 07/30/19 24 07/30/2023 LIPID PANEL cholesterol, total 180 mg/dL 100-19 9 Not Available [facility] [address] [place] [address], [address], 07/31/2023 06:17:06 07/30/19 24 07/30/2023 LIPID PANEL triglyceride s 163 mg/dL 0-149 above high normal Not Available [facility] [address] [place], [address], 07/31/2023 06:17:06 07/30/19 24 07/30/2023 LIPID PANEL HDL cholesterol 57 mg/dL 40-999 Not Available [facility] Department [address] [place], [address], 07/31/2023 06:17:06 07/30/19 24 07/30/2023 LIPID PANEL VLDL cholesterol viridiana 33 mg/dL 5-40 Not Available [facility] Department [address] [place] [address], [address], 07/31/2023 06:17:06 07/30/19 24 07/30/2023 LIPID PANEL LDL chol calc (nih) 114 mg/dL 0-99 above high normal Not Available [facility] [address] [place] [address], [address], 07/31/2023 06:17:06 07/30/19 24 07/30/2023 COMP. METAB OLIC PANEL (14) glucose 90 mg/dL 70-99 Not Available [facility] [address] [place] [address], [address], 07/31/2023 06:17:07 07/30/19 24 07/30/2023 COMP. METAB OLIC PANEL (14) BUN 37 mg/dL 8-27 above high normal Not Available [facility] [address] [place] [address], [address], 07/31/2023 06:17:07 07/30/19 24 07/30/2023 COMP. METAB OLIC PANEL (14) creatinine 1.35 mg/dL 0.76-1 .27 above high normal Not Available [facility] [address] [place] [address], [address], 07/31/2023 06:17:07 07/30/19 24 07/30/2023 COMP. METAB [...] disre enrique that value . Not Available [facility] [address] [place] [address], [address], 07/31/2023 06:17:07 07/30/19 24 07/30/2023 COMP. METAB OLIC PANEL (14) BUN/creatini ne ratio 28 10-28 Not Available [facility] Department [address] [place], [address], 07/31/2023 06:17:07 07/30/19 24 07/30/2023 COMP. METAB OLIC PANEL (14) sodium 141 mmol/ L 134-14 4 Not Available [facility] [address] [place] [address], [address], 07/31/2023 06:17:07 07/30/19 24 07/30/2023 COMP. METAB OLIC PANEL (14) potassium 4.5 mmol/ L 3.5-5. 2 Not Available [facility] [address] [place] [address], [address], 07/31/2023 06:17:07 07/30/19 24 07/30/2023 COMP. METAB OLIC PANEL (14) chloride 102 mmol/ L 96-106 Not Available [facility] [address] [place] [address], [address], 07/31/2023 06:17:07 07/30/19 24 07/30/2023 COMP. METAB OLIC PANEL (14) carbon dioxide, total 24 mmol/ L 20-29 Not Available [facility] [address] [place] [address], [address], 07/31/2023 06:17:07 07/30/19 24 07/30/2023 COMP. METAB OLIC PANEL (14) calcium 10.6 mg/dL 8.7-10 .3 above high normal Not Available [facility] [address] [place] [address], [address], 07/31/2023 06:17:07 07/30/19 24 07/30/2023 COMP. METAB OLIC PANEL (14) protein, total 7.9 g/dL 6.0-8. 5 Not Available [facility] [address] [place] [address], [address], 07/31/2023 06:17:07 07/30/19 24 07/30/2023 COMP. METAB OLIC PANEL (14) albumin 4.4 g/dL 3.8-4. 8 Not Available [facility] [address] [place] [address], [address], 07/31/2023 06:17:07 07/30/19 24 07/30/2023 COMP. METAB OLIC PANEL (14) globulin, total 3.5 g/dL 1.5-4. 5 Not Available [facility] [address] [place] [address], [address], 07/31/2023 06:17:07 07/30/19 24 07/30/2023 COMP. METAB OLIC PANEL (14) A/G ratio 1.0 1.2-2. 2 below low normal Not Available [facility] [address] [place] [address], [address], 07/31/2023 06:17:07 07/30/19 24 07/30/2023 COMP. METAB OLIC PANEL (14) bilirubin, total 0.3 mg/dL 0.0-1. 2 Not Available [facility] [address] [place] [address], [address], 07/31/2023 06:17:07 07/30/19 24 07/30/2023 COMP. METAB OLIC PANEL (14) alkaline phosphatase 39 IU/L 44-121 below low normal Not Available [facility] [address] [place] [address], [address], 07/31/2023 06:17:07 07/30/19 24 07/30/2023 COMP. METAB OLIC PANEL (14) AST (SGOT) 17 IU/L 0-40 Not Available [facility] Department [address] [place] [address], [address], 07/31/2023 06:17:07 07/30/19 24 07/30/2023 COMP. METAB OLIC PANEL (14) ALT (SGPT) 17 IU/L 0-32 Not Available [facility] Department [address] [place], [address], 07/31/2023 06:17:07 07/30/1907/30/2023 CBC WITH DIFFE RENTI AL/PL ATELE T WBC 7.0 x10e3 /uL 3.4-10 .8 Not Available [facility] [address] [place], [address], 07/31/2023 06:17:08 07/30/1907/30/2023 CBC WITH DIFFE RENTI AL/PL ATELE T RBC 5.21 x10e6 /uL 3.77-5 .28 Not Available [facility] [address] [place], [address], 07/31/2023 06:17:08 07/30/19 24 07/30/2023 CBC WITH DIFFE RENTI AL/PL ATELE T hemoglobin 14.7 g/dL 11.1-1 5.9 Not Available [facility] [address] [place], [address], 07/31/2023 06:17:08 07/30/1907/30/2023 CBC WITH DIFFE RENTI AL/PL ATELE T hematocrit 47.3 % 34.0-4 6.6 above high normal Not Available [facility] [address] [place], [address], 07/31/2023 06:17:08 07/30/1907/30/2023 CBC WITH DIFFE RENTI AL/PL ATELE T MCV 91 fL 79-97 Not Available [facility] [address] [place], [address], 07/31/2023 06:17:08 07/30/1907/30/2023 CBC WITH DIFFE RENTI AL/PL ATELE T MCH 28.2 pg 26.6-3 3.0 Not Available [facility] [address] [place], [address], 07/31/2023 06:17:08 07/30/19 24 07/30/2023 CBC WITH DIFFE RENTI AL/PL ATELE T MCHC 31.1 g/dL 31.5-3 5.7 below low normal Not Available [facility] [address] [place], [address], 07/31/2023 06:17:08 07/30/19 24 07/30/2023 CBC WITH DIFFE RENTI AL/PL ATELE T RDW 13.1 % 11.5-1 4.5 Not Available [facility] [address] [place], [address], 07/31/2023 06:17:08 07/30/19 24 07/30/2023 CBC WITH DIFFE RENTI AL/PL ATELE T platelets 366 x10e3 /uL 150-45 0 Not Available [facility] [address] [place], [address], 07/31/2023 06:17:08 07/30/19 24 07/30/2023 CBC WITH DIFFE RENTI AL/PL ATELE T neutrophils 61 % notest b. Not Available [facility] [address] [place], [address], 07/31/2023 06:17:08 07/30/19 24 07/30/2023 CBC WITH DIFFE RENTI AL/PL ATELE T lymphs 21 % notest b. Not Available [facility] [address] [place], [address], 07/31/2023 06:17:08 07/30/19 24 07/30/2023 CBC WITH DIFFE RENTI AL/PL ATELE T monocytes 9 % notest b. Not Available [facility] [address] [place], [address], 07/31/2023 06:17:08 07/30/19 24 07/30/2023 CBC WITH DIFFE RENTI AL/PL ATELE T eos 8 % notest b. Not Available [facility] [address] [place], [address], 07/31/2023 06:17:08 07/30/19 24 07/30/2023 CBC WITH DIFFE RENTI AL/PL ATELE T basos 1 % notest b. Not Available [facility] [address] [place], [address], 07/31/2023 06:17:08 07/30/19 24 07/30/2023 CBC WITH DIFFE RENTI AL/PL ATELE T neutrophils (absolute) 4.3 x10e3 /uL 1.4-7. 0 Not Available [facility] [address] [place], [address], 07/31/2023 06:17:08 07/30/19 24 07/30/2023 CBC WITH DIFFE RENTI AL/PL ATELE T lymphs (absolute) 1.5 x10e3 /uL 0.7-3. 1 Not Available [facility] [address] [place], [address], 07/31/2023 06:17:08 07/30/19 24 07/30/2023 CBC WITH DIFFE RENTI AL/PL ATELE T monocytes(ab solute) 0.6 x10e3 /uL 0.1-0. 9 Not Available [facility] [address] [place], [address], 07/31/2023 06:17:08 07/30/19 24 07/30/2023 CBC WITH DIFFE RENTI AL/PL ATELE T eos (absolute) 0.5 x10e3 /uL 0.0-0. 4 above high normal Not Available [facility] [address] [place], [address], 07/31/2023 06:17:08 07/30/19 24 07/30/2023 CBC WITH DIFFE RENTI AL/PL ATELE T baso (absolute) 0.1 x10e3 /uL 0.0-0. 2 Not Available [facility] [address] [place], [address], 07/31/2023 06:17:08 07/30/19 24 07/30/2023 CBC WITH DIFFE RENTI AL/PL ATELE T immature granulocytes 0.3 % notest b. Not Available [facility] [address] [place], [address], 07/31/2023 06:17:08 07/30/19 24 07/30/2023 CBC WITH DIFFE RENTI AL/PL ATELE T immature grans (abs) 0.0 x10e3 /uL 0.0-0. 1 Not Available [facility] [address] [place], [address], 07/31/2023 06:17:08 07/30/19 24 07/30/2023 CBC WITH DIFFE RENTI AL/PL ATELE T NRBC 0 % 0-0 Not Available [facility] [address] [place], [address], 07/31/2023 06:17:08 07/30/19 24 07/31/2023 ALBUM IN/CR EATIN INE RATIO ,URIN E creatinine, urine 96.1 mg/dL notest ab. Not Available [facility] ([facility]) [address] [place], [address], 07/31/2023 10:13:35 07/30/19 24 07/31/2023 ALBUM IN/CR EATIN INE RATIO ,URIN E albumin, urine 85.3 ug/mL notest ab. Not Available [facility] ([facility]) [address] [place], [address], 07/31/2023 10:13:35 07/30/19 24 07/31/2023 ALBUM IN/CR EATIN INE RATIO ,URIN E alb/creat ratio 89 mg/g_ creat 0-29 above high normal Carmella l: 0 - 29 Moder ately incre ased: 30 - 300 Sever ant incre ased: >300 Not Available [facility] ([facility]) [address] [place], [address], 07/31/2023 10:13:35 07/30/19 24 07/31/2023 HEMOG LOBIN A1C hemoglobin A1C 6.0 % 4.8-5. 6 above high normal Predi abete s: 5.7 - 6.4 Diabe karissa: >6.4 Glyce tere contr ol for adult s with diabe karissa: <7.0 Not Available [facility] ([facility]) [address] [facility], [place], [address], 07/31/2023 10:13:36 01/08/2001/09/2024 HEMOG LOBIN A1C hemoglobin A1C 5.8 % 4.8-5. 6 above high normal Predi abete s: 5.7 - 6.4 Diabe karissa: >6.4 Glyce tere contr ol for adult s with diabe karissa: <7.0 Not Available [facility] ([facility]) [address] [facility], [place], [address], 01/09/2024 06:23:22 01/08/2001/08/2024 LIPID PANEL cholesterol, total 157 mg/dL 100-19 9 Not Available [facility] [address] [place], [address], 01/09/2024 06:24:13 01/08/2001/08/2024 LIPID PANEL triglyceride s 195 mg/dL 0-149 above high normal Not Available [facility] [address] [place], [address], 01/09/2024 06:24:13 01/08/20 24 01/08/2024 LIPID PANEL HDL cholesterol 58 mg/dL 40-999 Not Available [facility] Department [address] [place], [address], 01/09/2024 06:24:13 01/08/20 24 01/08/2024 LIPID PANEL VLDL cholesterol viridiana 39 mg/dL 5-40 Not Available [facility] Department [address] [place] [address], [address], 01/09/2024 06:24:13 01/08/20 24 01/08/2024 LIPID PANEL LDL chol calc (nih) 90 mg/dL 0-99 Not Available [facility] Department [address] [place] [address], [address], 01/09/2024 06:24:13 01/08/2001/08/2024 COMP. METAB OLIC PANEL (14) glucose 88 mg/dL 70-99 Not Available [facility] [address] [place] [address], [address], 01/09/2024 06:24:14 01/08/20 24 01/08/2024 COMP. METAB OLIC PANEL (14) BUN 41 mg/dL 8-27 above high normal Not Available [facility] [address] [place] [address], [address], 01/09/2024 06:24:14 01/08/2001/08/2024 COMP. METAB OLIC PANEL (14) creatinine 1.52 mg/dL 0.76-1 .27 above high normal Not Available [facility] [address] [place] [address], [address], 01/09/2024 06:24:14 01/08/20 24 01/08/2024 COMP. METAB [...] disre enrique that value . Not Available [facility] [address] [place] [address], [address], 01/09/2024 06:24:14 01/08/2001/08/2024 COMP. METAB OLIC PANEL (14) BUN/creatini ne ratio 27 10-28 Not Available [facility] Department [address] [place] [address], [address], 01/09/2024 06:24:14 01/08/20 24 01/08/2024 COMP. METAB OLIC PANEL (14) sodium 142 mmol/ L 134-14 4 Not Available [facility] [address] [place] [address], [address], 01/09/2024 06:24:14 01/08/2001/08/2024 COMP. METAB OLIC PANEL (14) potassium 4.8 mmol/ L 3.5-5. 2 Not Available [facility] [address] [place] [address], [address], 01/09/2024 06:24:14 01/08/2001/08/2024 COMP. METAB OLIC PANEL (14) chloride 101 mmol/ L 96-106 Not Available [facility] [address] [place] [address], [address], 01/09/2024 06:24:14 01/08/2001/08/2024 COMP. METAB OLIC PANEL (14) carbon dioxide, total 29 mmol/ L 20-29 Not Available [facility] [address] [place] [address], [address], 01/09/2024 06:24:14 01/08/2001/08/2024 COMP. METAB OLIC PANEL (14) calcium 10.2 mg/dL 8.7-10 .3 Not Available [facility] [address] [place] [address], [address], 01/09/2024 06:24:14 01/08/2001/08/2024 COMP. METAB OLIC PANEL (14) protein, total 7.6 g/dL 6.0-8. 5 Not Available [facility] Department [address] [place] [address], [place], [address], 01/09/2024 06:24:14 01/08/2001/08/2024 COMP. METAB OLIC PANEL (14) albumin 4.2 g/dL 3.8-4. 8 Not Available [facility] [address] [place], [address], 01/09/2024 06:24:14 01/08/2001/08/2024 COMP. METAB OLIC PANEL (14) globulin, total 3.4 g/dL 1.5-4. 5 Not Available [facility] [address] [place], [address], 01/09/2024 06:24:14 01/08/2001/08/2024 COMP. METAB OLIC PANEL (14) A/G ratio 1.0 1.2-2. 2 below low normal Not Available [facility] [address] [place], [address], 01/09/2024 06:24:14 01/08/2001/08/2024 COMP. METAB OLIC PANEL (14) bilirubin, total 0.3 mg/dL 0.0-1. 2 Not Available [facility] [address] [place], [address], 01/09/2024 06:24:14 01/08/2001/08/2024 COMP. METAB OLIC PANEL (14) alkaline phosphatase 36 IU/L 44-121 below low normal Not Available [facility] [address] [place], [address], 01/09/2024 06:24:14 01/08/2001/08/2024 COMP. METAB OLIC PANEL (14) AST (SGOT) 20 IU/L 0-40 Not Available [facility] Department [address] [place], [address], 01/09/2024 06:24:14 01/08/2001/08/2024 COMP. METAB OLIC PANEL (14) ALT (SGPT) 20 IU/L 0-32 Not Available [facility] Department [address] [place], [address], 01/09/2024 06:24:14 01/08/20 24 01/08/2024 CBC WITH DIFFE RENTI AL/PL ATELE T WBC 7.7 x10e3 /uL 3.4-10 .8 Not Available [facility] [address] [place], [address], 01/09/2024 06:24:16 01/08/2001/08/2024 CBC WITH DIFFE RENTI AL/PL ATELE T RBC 5.17 x10e6 /uL 3.77-5 .28 Not Available [facility] [address] [place], [address], 01/09/2024 06:24:16 01/08/20 24 01/08/2024 CBC WITH DIFFE RENTI AL/PL ATELE T hemoglobin 14.5 g/dL 11.1-1 5.9 Not Available [facility] [address] [place] [address], [address], 01/09/2024 06:24:16 01/08/20 24 01/08/2024 CBC WITH DIFFE RENTI AL/PL ATELE T hematocrit 45.8 % 34.0-4 6.6 Not Available [facility] [address] [place], [address], 01/09/2024 06:24:16 01/08/2001/08/2024 CBC WITH DIFFE RENTI AL/PL ATELE T MCV 89 fL 79-97 Not Available [facility] [address] [place], [address], 01/09/2024 06:24:16 01/08/2001/08/2024 CBC WITH DIFFE RENTI AL/PL ATELE T MCH 28.0 pg 26.6-3 3.0 Not Available [facility] [address] [place], [address], 01/09/2024 06:24:16 01/08/2001/08/2024 CBC WITH DIFFE RENTI AL/PL ATELE T MCHC 31.7 g/dL 31.5-3 5.7 Not Available [facility] [address] [place], [address], 01/09/2024 06:24:16 01/08/2001/08/2024 CBC WITH DIFFE RENTI AL/PL ATELE T RDW 13.3 % 11.5-1 4.5 Not Available [facility] [address] [place], [address], 01/09/2024 06:24:16 01/08/2001/08/2024 CBC WITH DIFFE RENTI AL/PL ATELE T platelets 317 x10e3 /uL 150-45 0 Not Available [facility] [address] [place], [address], 01/09/2024 06:24:16 01/08/2001/08/2024 CBC WITH DIFFE RENTI AL/PL ATELE T neutrophils 63 % notest b. Not Available [facility] [address] [place], [address], 01/09/2024 06:24:16 01/08/2001/08/2024 CBC WITH DIFFE RENTI AL/PL ATELE T lymphs 20 % notest b. Not Available [facility] [address] [place], [address], 01/09/2024 06:24:16 01/08/2001/08/2024 CBC WITH DIFFE RENTI AL/PL ATELE T monocytes 7 % notest b. Not Available [facility] [address] [place], [address], 01/09/2024 06:24:16 01/08/20 24 01/08/2024 CBC WITH DIFFE RENTI AL/PL ATELE T eos 9 % notest b. Not Available [facility] [address] [place], [address], 01/09/2024 06:24:16 01/08/20 24 01/08/2024 CBC WITH DIFFE RENTI AL/PL ATELE T basos 1 % notest b. Not Available [facility] [address] [place], [address], 01/09/2024 06:24:16 01/08/2001/08/2024 CBC WITH DIFFE RENTI AL/PL ATELE T neutrophils (absolute) 4.8 x10e3 /uL 1.4-7. 0 Not Available [facility] [address] [place], [address], 01/09/2024 06:24:16 01/08/2001/08/2024 CBC WITH DIFFE RENTI AL/PL ATELE T lymphs (absolute) 1.5 x10e3 /uL 0.7-3. 1 Not Available [facility] [address] [place], [address], 01/09/2024 06:24:16 01/08/2001/08/2024 CBC WITH DIFFE RENTI AL/PL ATELE T monocytes(ab solute) 0.6 x10e3 /uL 0.1-0. 9 Not Available [facility] Department [address] [place], [address], 01/09/2024 06:24:16 01/08/2001/08/2024 CBC WITH DIFFE RENTI AL/PL ATELE T eos (absolute) 0.7 x10e3 /uL 0.0-0. 4 above high normal Not Available [facility] Department [address] [place], [address], 01/09/2024 06:24:16 01/08/20 24 01/08/2024 CBC WITH DIFFE RENTI AL/PL ATELE T baso (absolute) 0.1 x10e3 /uL 0.0-0. 2 Not Available [facility] Department [address] [place], [address], 01/09/2024 06:24:16 01/08/20 24 01/08/2024 CBC WITH DIFFE RENTI AL/PL ATELE T immature granulocytes 0.3 % notest b. Not Available [facility] Department [address] [place], [address], 01/09/2024 06:24:16 01/08/2001/08/2024 CBC WITH DIFFE RENTI AL/PL ATELE T immature grans (abs) 0.0 x10e3 /uL 0.0-0. 1 Not Available [facility] Department [address] [place], [address], 01/09/2024 06:24:16 01/08/2001/08/2024 CBC WITH DIFFE RENTI AL/PL ATELE T NRBC 0 % 0-0 Not Available [facility] Department [address] [place], [address], 01/09/2024 06:24:16 08/19/19 25 08/18/2024 LIPID PANEL cholesterol, total 168 mg/dL 100-19 9 Not Available [facility] Department [address] [place], [address], 08/19/2024 06:15:15 08/19/19 25 08/18/2024 LIPID PANEL triglyceride s 143 mg/dL 0-149 Not Available [facility] Department [address] [place], [address], 08/19/2024 06:15:15 08/19/19 25 08/18/2024 LIPID PANEL HDL cholesterol 54 mg/dL 40-999 Not Available [facility] Department [address] [place], [address], 08/19/2024 06:15:15 08/19/1908/18/2024 LIPID PANEL VLDL cholesterol viridiana 29 mg/dL 5-40 Not Available [facility] Department [address] [place], [address], 08/19/2024 06:15:15 08/19/1908/18/2024 LIPID PANEL LDL chol calc (nih) 107 mg/dL 0-99 above high normal Not Available [facility] Department [address] [place], [address], 08/19/2024 06:15:15 08/19/1908/18/2024 COMP. METAB OLIC PANEL (14) glucose 90 mg/dL 70-99 Not Available [facility] Department [address] [place] [address], [address], 08/19/2024 06:15:15 08/19/19 25 08/18/2024 COMP. METAB OLIC PANEL (14) BUN 40 mg/dL 8-27 above high normal Not Available [facility] Department [address] [place], [address], 08/19/2024 06:15:15 08/19/19 25 08/18/2024 COMP. METAB OLIC PANEL (14) creatinine 1.73 mg/dL 0.76-1 .27 above high normal Not Available [facility] Department [address] [place] [address], [address], 08/19/2024 06:15:15 08/19/19 25 08/18/2024 COMP. METAB OLIC PANEL (14) eGFR 32 >=60 below low normal Units for eGFR value s are mL/mi n/1.7 3 The eGFR Calcu latio n has not been valid ated for patie nts under the age of 18. If test resul ts are displ ayed for a patie nt under the age of 18, disre enrique that value . Not Available [facility] Department [address] [place] [address], [address], 08/19/2024 06:15:15 08/19/19 25 08/18/2024 COMP. METAB OLIC PANEL (14) BUN/creatini ne ratio 23 10-28 Not Available [facility] Department [address] [place], [address], 08/19/2024 06:15:15 08/19/19 25 08/18/2024 COMP. METAB OLIC PANEL (14) sodium 140 mmol/ L 134-14 4 Not Available [facility] Department [address] [place], [address], 08/19/2024 06:15:15 08/19/19 25 08/18/2024 COMP. METAB OLIC PANEL (14) potassium 4.3 mmol/ L 3.5-5. 2 Not Available [facility] Department [address] [place] [address], [address], 08/19/2024 06:15:15 08/19/19 25 08/18/2024 COMP. METAB OLIC PANEL (14) chloride 100 mmol/ L 96-106 Not Available [facility] Department [address] [place], [address], 08/19/2024 06:15:15 08/19/19 25 08/18/2024 COMP. METAB OLIC PANEL (14) carbon dioxide, total 27 mmol/ L 20-29 Not Available [facility] Department [address] [place], [address], 08/19/2024 06:15:15 08/19/19 25 08/18/2024 COMP. METAB OLIC PANEL (14) calcium 10.2 mg/dL 8.7-10 .3 Not Available [facility] Department [address] [place], [address], 08/19/2024 06:15:15 08/19/19 25 08/18/2024 COMP. METAB OLIC PANEL (14) protein, total 7.1 g/dL 6.0-8. 5 Not Available [facility] Department [address] [place], [address], 08/19/2024 06:15:15 08/19/1908/18/2024 COMP. METAB OLIC PANEL (14) albumin 4.0 g/dL 3.8-4. 8 Not Available [facility] Department [address] [place], [address], 08/19/2024 06:15:15 08/19/1908/18/2024 COMP. METAB OLIC PANEL (14) globulin, total 3.1 g/dL 1.5-4. 5 Not Available [facility] Department [address] [place], [address], 08/19/2024 06:15:15 08/19/1908/18/2024 COMP. METAB OLIC PANEL (14) A/G ratio 1.0 1.2-2. 2 below low normal Not Available [facility] Department [address] [place], [address], 08/19/2024 06:15:15 08/19/1908/18/2024 COMP. METAB OLIC PANEL (14) bilirubin, total 0.3 mg/dL 0.0-1. 2 Not Available [facility] Department [address] [place], [address], 08/19/2024 06:15:15 08/19/1908/18/2024 COMP. METAB OLIC PANEL (14) alkaline phosphatase 63 IU/L 44-121 Not Available [facility] Department [address] [place], [address], 08/19/2024 06:15:15 08/19/1908/18/2024 COMP. METAB OLIC PANEL (14) AST (SGOT) 12 U/L 0-40 Not Available [facility] Department [address] [place], [address], 08/19/2024 06:15:15 08/19/19 25 08/18/2024 COMP. METAB OLIC PANEL (14) ALT (SGPT) 15 IU/L 0-32 Not Available [facility] Department [address], [place], [address], 08/19/2024 06:15:15 08/19/19 25 08/18/2024 HEMOG LOBIN A1C hemoglobin A1C 5.8 % 4.8-5. 6 above high normal Predi abete s: 5.7 - 6.4 Diabe karissa: >6.4 Glyce tere contr ol for adult s with diabe karissa: <7.0 Not Available [facility] ([facility]) [address] [facility], [place], [address], 08/19/2024 06:15:17 08/16/19 24 08/15/2023 MAMMO , scree phyllis, bilat eral No observ ation record ed. [address] [facility], [place], [address], 08/23/2023 14:38:52 01/21/20 24 01/20/2024 US, renal No observ ation record ed. [address] [id number], [place], [address], 01/22/2024 09:56:37 04/13/19 25 04/13/2024 MR, angio gram, abdom en, w/wo contr ast No observ ation record ed. [address] [address], [place], [address], 04/15/2024 09:10:04 Result Notes None recorded. Problems Name Problem SNOMED Code Status Onset Date Resolution Date Notes Provider Name and Address Organization Details Recorded Time Knee pain Active Ceasar Matthews PA-C Attn: Kvng puente,[address] [facility], [place], [address], [place] [facility] 6 12:48:55 Hypertens edward disorder 69999189 Active Ceasar Matthews PA-C Attn: Accountin g,[address] [facility], [place], [address], [place] [facility] 6 12:49:15 Pain of hip region 12434147 Active Ceasar Matthews PA-C Attn: Accountin g,[address] [facility], [place], [address], [place] [facility] 6 15:31:46 Dyslipide rom 255618464 Active Ceasar Matthews PA-C Attn: Accountin g,[address] [facility], [place], [address], [place] [facility] 6 12:49:15 Cough 35002223 Active Damon Hol[place], [place] [facility] 6 17:17:33 Uncontrol led type 2 diabetes mellitus 764175875 Active Ceasar Matthews PA-C Attn: Accountin g,[address] [facility], [place], [address], [place] [facility] 6 12:49:15 Hernia of abdominal cavity 62392381 Active Damon [place] [facility] 6 17:17:33 Diastasis recti 09760772 Active Dam[place] [facility] 6 17:17:33 Bacterial vaginosis 079146301 Active Chente Dominguez RN [place] [facility] 6 10:04:25 Sinusitis 47246499 Active Ceasar Matthews PA-C Attn: Accountin g,[address] [facility], [place], [address], [place] [facility] 6 12:49:15 Acute sinusitis 90187550 Active 2016 Ceasar Matthews PA-C Attn: Accountin g,[address] [facility], [place], [address], [place] [facility] 7 14:42:14 Type 2 diabetes mellitus 30027664 Active 2016 Ceasar Matthews PA-C Attn: Accountin g,[address] [facility], [place], [address], [place] [facility] 7 10:34:36 Screening for malignant neoplasm of colon Active 2016 Ceasar Matthews PA-C Attn: Kvng g,[address] [facility], [place], [address], [place] [facility] 7 10:47:34 Obese 789064005 Active 2016 Ceasar Matthews PA-C Attn: Kvng g,[address] [facility], [place], [address], [place] [facility] 7 12:41:06 Serum creatinin e outside reference range 514527490 Active 2017 Ceasar Matthews PA-C Attn: Kvng puente,[address] [facility], [place], [address], [place] [facility] 8 16:14:23 Constipat ion 60095696 Active 2017 Ceasar Matthews PA-C Attn: Kvng puente,[address] [facility], [place], [address], [place] [facility] 8 12:52:20 Hallux rickie 170539640 Active 2018 right worse than left Ceasar Matthews PA-C Attn: Kvng g,[address] [facility], [place], [address], [place] [facility] 2 12:49:33 Screening for malignant neoplasm of breast Active 2019 Ceasar Matthews PA-C Attn: Accountin g,[address] [facility], [place], [address], [place] [facility] 0 11:52:50 Mammograp hic mass of right breast [id number] 00213 Active 2019 Ceasar Matthews PA-C Attn: Accountin g,[address] [facility], [place], [address], [place] [facility] 0 14:18:36 Carcinoma of female breast 156103911 Active 2019 Grade 2 invasive lobular carcinoma , upper/out er R breast Ceasar Matthews PA-C Attn: Kvng puente,[address] [facility], [place], [address], [place] [facility] 0 15:49:49 At increased risk of nutrition al deficit 780690131 Active 2020 Ceasar Matthews PA-C Attn: Kvng puente,[address] [facility], [place], [place], [address] [place] [address] 2, [place] [facility] 1 11:13:49 Hyperlipi demia 66755015 Active 2020 Ceasar Matthews PA-C Attn: Kvng puente,[address] [facility], [place], [place], [address] [place] [address] 2, [place] [facility] 1 16:27:47 Osteopeni a 459385882 Active 2020 Ceasar Matthews PA-C Attn: Kvng puente,[address] [facility], [place], [place], [address] [place] [address] 2, [place] [facility] 1 13:55:45 HIV screening Active 2021 Ceasar Matthews PA-C Attn: Kvng puente,[address] [facility], [place], [place], [address] [place] [address] 2, [place] [facility] 2 14:30:55 Essential hypertens ion 31072965 Active 2023 Lex Garcia [place], [place] [facility] 4 12:43:46 Chronic kidney disease stage 3 253150349 Active 2024 Sourav Frye MD Attn: Accountraciel puente,[address] [facility], [place], [place], [address] [place] [address] 2, [place] [facility] 5 17:27:12 Disorder of pancreas 2846142 Active 2024 Sourav Frye MD Attn: Accountraciel puente,[address] [facility], [place], [place], [address] [place] [address] 2, [place] [facility] 5 13:10:06 Problem Notes None recorded. Procedures Surgical History Date Name Laterality Status Provider Name and Address Organization Details Recorded Time 6 Date of Last Pap Smear completed Lynnette Van MA [facility] 07/23/2017 10:08:54 5 Most Recent Mammogram completed Lynnette Van MA [facility] 04/15/2015 15:01:21 Caesarean Section completed Lynnette Van MA [facility] 07/23/2017 10:28:27 Other completed Lynnette Van MA [facility] 07/23/2017 10:29:25 Caesarean Section completed Nichelle Hayes MA [facility] 05/13/2014 14:33:53 Imaging Results None recorded. Procedure Notes None recorded. Medical Equipment None Reported. Allergies No known drug allergies Medications Name Sig Start Date Stop Date Status Note LastModified by Organization Details LastModified Time lisinopri l tab 10mglisin opril active Not Available Not Available Not Available freestyle mis lite 05/07 completed Not Available Not Available Not Available gnp alcohol swabs 70 % pads 05/07 completed Not Available Not Available Not Available losartan potassium 50 mg tabs 01/31 completed Not Available Not Available Not Available lovastati n tab 20mglovas tatin 05/07 completed Not Available Not Available Not Available benzonata te 200 mg caps active Not Available Not Available Not Available ciproflox acn tab 500mgcipr ofloxacin hcl active Not Available Not Available Not Available lancets twist top misc 05/07 completed Not Available Not Available Not Available lovastati n 20 mg tabs 05/07 completed Not Available Not Available Not Available metformin hcl 500 mg tabs 05/07 completed Not Available Not Available Not Available benzonata te cap 200mgbenz onatate active Not Available Not Available Not Available freestyle karissa lite 05/07 completed Not Available Not Available Not Available lisinopri l 10 mg tabs active Not Available Not Available Not Available losartan 50 mg tablet TAKE 1 TABLET BY MOUTH ONCE DAILY 2024 active Not Available Not Available Not Avai lable metformin 500 mg tablet Take 1 tablet by mouth twice daily 2024 active Not Available Not Available Not Avai lable anastrozo le 1 mg tablet TAKE 1 TABLET BY MOUTH ONCE DAILY active Not Available Not Available No t Available benzonata te 200 mg capsule Take 1 capsule 3 times a day by oral route as needed for 10 days. active Not Available Not Available No t Available hydrocodo ne 5 mg-acetam inophen 325 mg tablet 08/19 completed Not Available Not Available Not Available metronida zole 500 mg tablet Take 1 tablet twice a day by oral route for 5 days. 05/07 completed Not Available Not Available Not Available ciproflox acin 500 mg tablet Take 1 tablet every 12 hours by oral route for 10 days. 05/07 completed Not Available Not Available Not Available tramadol 50 mg tablet 05/07 completed Not Available Not Available Not Available ketorolac 10 mg tablet 07/22 completed Not Available Not Available Not Available oxycodone -acetamin ophen 5 mg-325 mg tablet 05/07 completed Not Available Not Available Not Available benzonata te 100 mg capsule Take 2 capsules 3 times a day by oral route for 10 days. active Not Available Not Available No t Available lisinopri l 10 mg tablet Take 1 tablet every day by oral route in the morning for 30 days. active Not Available Not Available No t Available bisacodyl 5 mg tablet,de layed release Take 3 tablets every day by oral route as needed for 3 days. 09/05 completed Not Available Not Available Not Available alcohol swabs USE TO CHECK BLOOD SUGAR once daily active Not Available Not Available No t Available lovastati n 20 mg tablet TAKE 1 TABLET BY MOUTH ONCE DAILY IN THE EVENING active Not Available Not Available No t Available naproxen 500 mg tablet Take 1 tablet twice a day by oral route with meals for 30 days. 07/23 completed Not Available Not Available Not Available omega-3 acid ethyl esters 1 gram capsule active Not Available Not Available Not Available OneTouch UltraMini kit 05/07 completed Not Available Not Available Not Available Easy Touch 08/25 completed Not Available Not Available Not Available Januvia 100 mg tablet TAKE 1 TABLET BY MOUTH ONCE DAILY IN THE MORNING 2024 active Not Available Not Available Not Avai lable calcium 600 mg (as carbonate )-vitamin D3 10 mcg (400 unit) tablet Take 1 tablet twice a day by oral route with meals for 90 days. 2024 active Not Available Not Available Not Avai lable peg 3350 240 gram-elec trolytes 22.72 gram-6.72 g-5.84 g powdr for soln 06/21 completed Not Available Not Available Not Available fenofibra te 120 mg tablet Take 1 tablet every day by oral route after meals for 90 days. 02/02 completed Not Available Not Available Not Available GaviLyte- G 236 gram-22.7 4 gram-6.74 gram-5.86 gram oral solution active Not Available Not Available Not Available omega 3-dha-epa -fish oil 1,000 mg (120 mg-180 mg) capsule [...] Available Not Available OneTouch Verio test strips USE DIRECTED . TEST DAILY 2024 active Not Available Not Available Not Avai lable lancets 30 gauge active Not Available Not Available Not Available Safety Seal Lancets 28 gauge USE DIRECTED active Not Available Not Available No t Available Farxiga 10 mg tablet TAKE 1 TABLET BY MOUTH ONCE DAILY active Not Available Not Available No t Available Farxiga 5 mg tablet TAKE 1 TABLET BY MOUTH ONCE DAILY 09/22 completed Pt has been increase d to 10mg dose Not Available Not Available Not Available True Metrix Air Glucose Meter DIRECTED , test twice per day 2018 active Not Available Not Available Not Avai lable OneTouch Ultra Blue Test Strip USE DIRECTED , test twice per day per fingerst ick 2018 active Not Available Not Available Not Avai lable OneTouch Delica Plus Lancet 33 gauge USE 1 TO CHECK GLUCOSE ONCE DAILY active Not Available Not Available No t Available OneTouch Delica Plus Lancing Device kit USE TO TEST BLOOD SUGARS DIRECTED active Not Available Not Available No t Available Vitals Date Recorded Body height Body mass index (BMI) Body weight Heart rate Oxygen saturation Oxygen saturation in Arterial blood by Pulse oximetry Systolic And Diastolic Provider Name and Address Organization Details Last Updated DateTime 5 152.4 cm 25.4 kg/m2 21532.0 1 g 82 /min 96 % 96 % 120/60 mm[Hg] Meg Knapp MA [facility] 5 14:32:29 Date Recorded Body height Body mass index (BMI) Body weight Heart rate Oxygen saturation Oxygen saturation in Arterial blood by Pulse oximetry Systolic And Diastolic Provider Name and Address Organization Details Last Updated DateTime 4 152.4 cm 27.3 kg/m2 05167.9 3 g 91 /min 99 % 99 % 121/66 mm[Hg] Lilo Barbosa MA [facility] 4 12:13:45 Date Recorded Body height Body mass index (BMI) Body weight Heart rate Oxygen saturation Oxygen saturation in Arterial blood by Pulse oximetry Systolic And Diastolic Provider Name and Address Organization Details Last Updated DateTime 4 152.4 cm 26.6 kg/m2 56794.9 2 g 68 /min 98 % 98 % 132/74 mm[Hg] Marifer Lawton MA [facility] 4 12:04:12 Date Recorded Body height Body mass index (BMI) Body weight Heart rate Oxygen saturation Oxygen saturation in Arterial blood by Pulse oximetry Systolic And Diastolic Provider Name and Address Organization Details Last Updated DateTime 5 152.4 cm 25.1 kg/m2 05875.2 6 g 74 /min 96 % 96 % 128/66 mm[Hg] Marifer Lawton MA [facility] 5 10:48:50 Date Recorded Body height Body mass index (BMI) Body weight Heart rate Oxygen saturation Oxygen saturation in Arterial blood by Pulse oximetry Systolic And Diastolic Provider Name and Address Organization Details Last Updated DateTime 4 152.4 cm 25.6 kg/m2 38995.6 g 77 /min 96 % 96 % 138/68 mm[Hg] Loulou Paredes MA [facility] 4 15:00:17 Social History Question Answer Notes LastModified by Organizat ion Details LastModified Time Tobacco Smoking Status Never Smoker JEREMIAH Gautam, [facility] 05/13/2014 14:33:53 Do You Have An Advance Directive? No Information n ot available 05/13/2014 Are You Blind Or Do [...] Yes Information not available 08/19/2020 Are You Deaf Or Do You Have Serious Difficulty Hearing? No Information not available 05/13/2014 What Type Of Diet Are You Following? REGULAR Information n ot available 05/13/2014 Which Illicit Or Recreational Drugs Have You Used? None Information not available 04/15/2015 Education 12 Information no t available 05/13/2014 Are There Any Guns Present [...] Date Of Your Most Recent Tobacco Screening? 08/18/2024 Information not available 08/18/2024 How Many Children Do You Have? 2 [...] Medium Information not available 05/13/2014 Do You Use Sunscreen Routinely? No Information not available 05/13/2014 On What Date Was Tobacco Cessation Counseling Provided? 08/18/2024 Information not available 08/18/2024 Do You Have Difficulty Walking Or Climbing Stairs? Yes Information not available 05/13/2014 Sex: Female Functional Status Question Answer Note LastModified by Organizat ion Details LastModified Time Do you use any illicit or recreational drugs? No Information not available 07/21/2020 What is your level of alcohol consumption? None Information not available 05/13/2014 Are you currently employed? No Information not available 04/15/2015 Do you have difficulty doing errands alone? No Information not available 05/13/2014 Are you able to care for yourself independently? 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 No Information not available 05/13/2014 What is your exercise level? None Information not available 05/13/2014 Mental Status Question Answer Note LastModified by Organizat ion Details LastModified Time Do you feel stressed (tense, restless, nervous, or anxious, or unable to sleep at night)? [id number] Information not available 06/21/2020 Do you have difficulty concentrating, remembering or [...] or Bladder Problems N Thyroid Problems N GI Problems N Lung Disease N Depression N Blood Clots N Acne N Breast Problem N Eating Disorder N Anemia N Anesthesia Complications N Headaches/Migraines N Anxiety Disorder N Ovarian Cancer N Diabetes Y Muscle, Joint, or Bone Problems N Blood [...] or 50 mcg/0.25mL dose 11/29/2020 completed J[place]EMIAH [place] [facility] 04/15/2024 09:45:06 COVID-19, mRNA, LNP-S, PF, 100 mcg/0.5mL dose or 50 mcg/0.25mL dose 12/27/2020 completed [place]EM[place]H [place] [facility] 04/15/2024 09:45:06 COVID-19, mRNA, LNP-S, PF, 30 mcg/0.3 mL dose 11/29/2020 completed JEREMIAH [place] [facility] 04/15/2024 09:45:06 COVID-19, mRNA, LNP-S, PF, 30 mcg/0.3 mL dose 12/27/2020 completed Meg JEREMIAH Knapp amanda, [place] - [facility] 04/15/2024 09:45:06 Past Encounters Encounter ID Performer Location Encounter Start Date Encounter Closed Date Diagnosis/Indication Diagnosis SNOMED-CT Code Diagnosis ICD10 Code Diagnosis Note [id number] MONICA Pappas (Adult Med) [address] [place] [id number] 05/13/2014 14:18:45 05/13/2014 14:53:24 Dyslipidemia 217346386 Pain of hip region 16745678 Hypertensive disorder 14363770 Knee pain 93734369 Cough 78009322 [id number] MONICA Pappas (Adult Med) [address] [place] [id number] 09/10/2014 11:25:14 09/10/2014 17:24:33 Cough 75952499 Dyslipidemia 332038663 Pain of hip region 11232868 Hypertensive disorder 63719751 Knee pain 61702133 Impaired g lucose tolerance 1203280 [id number] MD Aminta Gregg (Adult Med) [address] [place] [id number] 11/19/2014 10:44:02 11/19/2014 15:45:20 Uncontrolled type 2 diabetes mellitus 297099214 Dyslipidemia 609006109 Hypertensive disorder 80894440 Knee pain 45374256 [id number] MD Aminta Gregg (Adult Med) [address] [place] [id number] 01/21/2015 10:51:54 01/21/2015 11:33:08 Dyslipidemia 208966989 E78.5 Pain of hip region 04898 002 M25.559 Hypertensive disorder 38 631569 I10 Uncontroll ed type 2 diabetes mellitus 428509610 E11.65 Hernia of abdominal cavity 52218178 K46.9 above umbilicus for 24 years Cough 05815930 R05 [id number] MONICA Pappas (Adult Med) [address] [place] [id number] 03/24/2015 10:06:10 03/24/2015 10:48:21 Diastasis recti 34201256 M62.08 Uncontroll ed type 2 diabetes mellitus 866688035 E11.65 Pain of hip region 58586 002 M25.559 [id number] MD Aminta Emery ([facility]) [address] [place] [id number] 04/15/2015 14:47:18 04/15/2015 17:18:10 Gynecologic examination 64244375 Z01.419 Z11.51 Venereal d isease screening 275939988 Z11.3 [id number] MONICA Pappas (Adult Med) [address] [place] [id number] 05/26/2015 14:42:03 05/27/2015 17:14:53 Dyslipidemia 835959990 E78.5 Pain of hip region 03628 002 M25.559 Uncontroll ed type 2 diabetes mellitus 612311040 E11.65 [id number] MONICA Pappas (Adult Med) [address] [place] [id number] 07/28/2015 15:29:46 07/28/2015 16:20:25 Dyslipidemia 641935296 E78.5 Hypertensive disorder 38 257980 I10 Uncontroll ed type 2 diabetes mellitus 707480463 E11.65 [id number] MD Aminta Gregg (Adult Med) [address] [place] [id number] 11/24/2015 12:24:14 11/24/2015 12:51:31 Sinusitis 59949902 J32.9 Uncontroll ed type 2 diabetes mellitus 223317400 E11.65 Hypertensive disorder 38 616903 I10 Dyslipidemia 142862427 E 78.5 [id number] MD Aminta Gregg (Adult Med) [address] [place] [address] [phone] 0 04/12/2016 14:13:09 04/17/2016 13:00:09 Acute sinusitis 23633587 J01.90 Uncontroll ed type 2 diabetes mellitus 482575106 E11.65 Dyslipidemia 318632196 E 78.5 Hypertensive disorder 38 725516 I10 Cough 63127184 R05 [id number] MD Aminta Gregg (Adult Med) [address] [place] [address] 82454-251 0 06/11/2016 09:47:36 06/11/2016 10:51:52 Type 2 diabetes mellitus 85440490 E11.9 Dyslipidemia 001659245 E 78.5 Hypertensive disorder 38 144967 I10 Uncontroll ed type 2 diabetes mellitus 037237414 E11.65 Screening for malignant neoplasm of colon 384280022 Z12.11 [id number] MD Aminta Gregg (Adult Med) [address] [place] [address] 34884-029 0 08/13/2016 12:00:00 08/13/2016 12:38:23 Uncontrolled type 2 diabetes mellitus 381418706 E11.65 Screening for malignant neoplasm of colon 716965548 Z12.11 Hypertensive disorder 38 778773 I10 Dyslipidemia 050171931 E 78.5 Type 2 miroslava betes mellitus 20871228 E11.9 [id number] MD Aminta Gregg (Adult Med) [address] [place] [address] 00669-463 0 10/17/2016 10:26:18 10/17/2016 17:56:25 Dyslipidemia 211349453 E78.5 Hypertensive disorder 38 932426 I10 Uncontroll ed type 2 diabetes mellitus 656714649 E11.65 Obese 752023342 E66.9 [id number] MD Aminta Gregg (Adult Med) [address] [place] [address] [phone] 0 12/21/2016 12:24:54 12/21/2016 15:05:19 Type 2 diabetes mellitus 84726595 E11.9 Dyslipidemia 899802943 E 78.5 [id number] MD Aminta Gregg (Adult Med) [address] [place] [address] 34741-989 0 03/05/2017 11:34:22 03/05/2017 12:14:58 Type 2 diabetes mellitus 35307015 E11.9 Dyslipidemia 015434226 E 78.5 Obese 151450589 E66.9 Hypertensive disorder 38 914848 I10 Bacterial vaginosis 4197 54384 N76.0 [id number] MD Aminta Gregg (Adult Med) [address] [place] [address] 88949-934 0 05/07/2017 11:36:37 05/07/2017 12:15:49 Type 2 diabetes mellitus 42558063 E11.9 Dyslipidemia 264649684 E 78.5 Hypertensive disorder 38 114823 I10 Pain of hip region 51275 002 M25.689 [id number] MD Aminta Gregg (Adult Med) [address] [place] [address] 71145-831 0 07/02/2017 10:29:11 07/02/2017 11:12:20 Uncontrolled type 2 diabetes mellitus 514388525 E11.65 Type 2 miroslava betes mellitus 31355037 E11.9 Screening for malignant neoplasm of colon 341243626 Z12.11 Obese 361099860 E66.9 Dyslipidemia 164888698 E 78.5 [id number] MD Aminta Carcamo (SITE HEAD) [address] [place] [address] 13262-141 0 07/23/2017 09:55:47 07/23/2017 15:01:28 Gynecologic examination 91194957 Z01.411 Age appropriat e counseling done. Screening mammography 24 424523 Z12.31 Obese 876786113 E66.9 Counseled About weight loss, diet and excercise. Patient refused foot gatherer consult. Leukocytes in urine 2757 78287 R82.79 D/W PATIENT Hernia of anterior abdominal wall 280738513 K43.9 Patient say she see a surgeon for it. Advised to f/u. [id number] MD Aminta Gregg (Adult Med) [address] [place] [address] 96456-798 0 09/03/2017 15:47:32 09/03/2017 16:19:56 Serum creatinine outside reference range 405757036 R79.89 Obese 475328421 E66.9 Type 2 miroslava betes mellitus 36069871 E11.9 Dyslipidemia 368179797 E 78.5 Hypertensive disorder 38 051297 I10 [id number] MD Aminta Gregg (Adult Med) [address] [place] [address] 83271-770 0 11/04/2017 12:07:51 11/04/2017 13:00:10 Type 2 diabetes mellitus 56633908 E11.9 Dyslipidemia 953266434 E 78.5 Hypertensive disorder 38 156068 I10 Constipation 20051909 K5 9.00 Serum crea tinine outside reference range 142500401 R79.89 [id number] MD Aminta Gregg (Adult Med) [address] [place] [address] 42136-397 0 01/02/2018 12:19:43 01/02/2018 13:37:57 Type 2 diabetes mellitus 97194560 E11.9 Obese 591207983 E66.9 Dyslipidemia 305645763 E 78.5 Hypertensive disorder 38 771222 I10 Pain of hip region 34780 002 M25.083 [id number] MD Aminta Gregg (Adult Med) [address] [place] [address] 63381-528 0 03/04/2018 13:54:21 03/04/2018 14:55:34 Essential hypertension 17826464 I10 Type 2 miroslava betes mellitus 04357495 E11.9 Dyslipidemia 671946242 E 78.5 Screening for malignant neoplasm of colon 267300303 Z12.11 [id number] MD Aminta Gregg (Adult Med) [address] [place] [address] 76881-955 0 05/06/2018 11:09:40 05/06/2018 12:29:52 Constipation 30714947 K59.00 Serum crea tinine outside reference range 361507493 R79.89 Obese 799241381 E66.9 Type 2 miroslava betes mellitus 72393773 E11.9 Dyslipidemia 947322093 E 78.5 Pain of hip region 52101 002 M25.418 [id number] MD Aminta Gregg (Adult Med) [address] [place] [address] 27639-824 0 07/08/2018 14:27:04 07/08/2018 15:31:59 Type 2 diabetes mellitus 06148206 E11.9 Hallux valgus 963104144 M20.11 right worse than left Screening for malignant neoplasm of colon 498978462 Z12.11 Obese 055650574 E66.9 Dyslipidemia 873252660 E 78.5 Hypertensive disorder 38 320690 I10 Pain of hip region 49648 002 M25.131 [id number] MD Aminta Gregg (Adult Med) [address] [place] [address] 32353-986 0 09/05/2018 13:47:22 09/05/2018 14:43:42 Type 2 diabetes mellitus 69450120 E11.9 Dyslipidemia 210043889 E 78.5 Hypertensive disorder 38 042730 I10 Obese 870357186 E66.9 Pain of hip region 72900 002 M25.181 [id number] MD Aminta Gregg (Adult Med) [address] [place] [address] 23327-460 0 12/08/2018 10:53:42 12/09/2018 09:22:23 Type 2 diabetes mellitus 03270193 E11.9 Dyslipidemia 441625487 E 78.5 Screening for malignant neoplasm of colon 440303482 Z12.11 Hallux valgus 785463234 M20.11 right worse than left Obese 447070993 E66.9 Hypertensive disorder 38 121388 I10 Serum crea tinine outside reference range 610536320 R79.89 [id number] MD Aminta Gregg (Adult Med) [address] [place] [address] 40849-716 0 02/24/2019 10:32:27 02/25/2019 10:13:02 Type 2 diabetes mellitus 22049192 E11.9 Dyslipidemia 674127558 E 78.5 Hallux valgus 451896664 M20.11 right worse than left Hypertensive disorder 38 149252 I10 Obese 437090898 E66.9 [id number] MD Aminta Gregg (Adult Med) [address] [place] [address] 22602-043 0 04/27/2019 11:17:10 04/27/2019 11:58:57 Screening for malignant neoplasm of breast 495349765 Z12.39 Hypertensive disorder 38 374506 I10 Dyslipidemia 692426719 E 78.5 Type 2 miroslava betes mellitus 39795971 E11.9 Pain of hip region 42997 002 M25.559 Obese 405865609 E66.9 [id number] MD Aminta Gregg (Adult Med) [address] [place] [address] 65422-549 0 02/01/2020 08:29:14 02/01/2020 16:43:43 Hypertensive disorder 80553172 I10 Dyslipidemia 968868547 E 78.5 Type 2 miroslava betes mellitus 52024722 E11.9 Carcinoma of female breast 551366180 C50.140 [id number] MD Aminta Gregg (Adult Med) [address] [place] [address] 80124-941 0 03/03/2020 08:02:53 03/04/2020 09:37:56 Dyslipidemia 363133657 E78.5 Hypertensive disorder 38 952305 I10 Hallux valgus 541876915 M20.11 right worse than left Knee pain 47422743 M25.5 69 Type 2 miroslava betes mellitus 63047735 E11.9 [id number] MD Aminta Gregg (Adult Med) [address] [place] [address] 83782-471 0 04/19/2020 08:08:22 04/19/2020 11:26:58 Constipation 42842635 K59.00 Dyslipidemia 501046290 E 78.5 Hallux valgus 535395952 M20.11 right worse than left Pain of hip region 06118 002 M25.559 Hypertensive disorder 38 859997 I10 Obese 607949144 E66.9 Type 2 miroslava betes mellitus 48021769 E11.9 [facility] risk of nutritional deficit 732122983 Z91.89 [id number] MD Aminta Gregg (Adult Med) [address] [place] [address] 92352-805 0 05/20/2020 08:01:28 05/20/2020 12:13:27 Type 2 diabetes mellitus 84423105 E11.9 Dyslipidemia 253212169 E 78.5 Pain of hip region 87614 002 M25.559 Hyperlipidemia 36478979 E78.5 Hypertensive disorder 38 725540 I10 Osteopenia 695412351 M85 .80 [id number] MD Aminta Gregg (Adult Med) [address] [place] [address] 62520-860 0 06/21/2020 09:54:39 06/21/2020 11:57:18 Dyslipidemia 673919888 E78.5 Pain of hip region 75671 002 M25.559 Hyperlipidemia 03417595 E78.5 Hypertensive disorder 38 315965 I10 Obese 118035697 E66.9 Osteopenia 554539578 M85 .80 Type 2 miroslava betes mellitus 74145863 E11.9 [id number] MD Aminta Gregg (Adult Med) [address] [place] [address] 78128-234 0 07/21/2020 08:04:04 07/21/2020 12:32:20 Type 2 diabetes mellitus 30872521 E11.9 Osteopenia 598649951 M85 .80 Obese 503832394 E66.9 Hyperlipidemia 95683414 E78.5 Hypertensive disorder 38 875712 I10 [id number] MD Aminta Gregg (Adult Med) [address] [place] [address] 11427-816 0 08/19/2020 15:47:47 08/23/2020 09:21:49 Type 2 diabetes mellitus 86763730 E11.9 Hyperlipidemia 38179971 E78.5 Hypertensive disorder 38 034113 I10 [id number] MD Aminta Gregg (Adult Med) [address] [place] [address] 28385-810 0 08/22/2021 11:56:42 08/22/2021 17:01:06 Type 2 diabetes mellitus 58303407 E11.9 Hyperlipidemia 33944281 E78.5 Hypertensive disorder 38 282752 I10 Hallux valgus 539822448 M20.11 right worse than left [id number] MD Aminta Gregg (Adult Med) [address] [place] [address] 16761-483 0 11/21/2021 14:13:19 11/22/2021 07:32:39 Hypertensive disorder 55482360 I10 Hyperlipidemia 90785318 E78.5 HIV screening 486506454 Z11.4 Osteopenia 447202341 M85 .80 Type 2 miroslava betes mellitus 79555504 E11.9 [id number] MD Aminta Gregg (Adult Med) [address] [place] [address] 31404-692 0 02/19/2022 15:09:51 02/23/2022 12:39:10 Overweight 618200528 E66.3 BMI is 27.3 she has been advised to watch her diabetic low salt , low animal fat diet, exercise and keep the weight down. Dyslipidemia 909337614 E 78.5 Low animal fat diet, on lovastatin . Hypertensive disorder 38 018801 I10 On low salt diet, Avoid NSAID or OTC decongesta nt if possible, on losartan., Will continue to monitor blood pressure, this is first visit with this provider. Type 2 miroslava betes mellitus 31857097 E11.9 Diabetic diet, on metformin, and januvia, has enough refills. Administra tion of pneumococcal vaccine 80988054 Z23 She refuses 02-19-2022 . Administra tion of diphtheria, pertussis, and tetanus vaccine 368846198 Z23 She refuses, 02-19-2022 . Administra tion of SARS-CoV-2 mRNA vaccine 1381966693 Z23 She refuses 02-19-2022 . History of malignant neoplasm of breast 219452363 Z85.3 Right breast, under the care of specialist . [id number] [facility] [address] [place] [address] 32311-865 0 06/27/2022 14:11:22 06/28/2022 15:03:44 Type 2 diabetes mellitus 40558862 E11.9 Diabetic diet, on metformin, and januvia, has enough refills. Essential hypertension 03940273 I10 BP as 06-27-22. is 134/80. low salt diet, Avoid NSAID, or OTC decongesta nt. med refill. Primary ma lignant neoplasm of female breast 09356207 C50.919 since 2019, on chemo therapy, under the care of her oncologist . Hypertensive disorder 38 544402 I10 On low salt diet, Avoid NSAID or OTC decongesta nt if possible, on losartan., Will continue to monitor blood pressure, this is first visit with this provider. Hyperlipidemia 99811200 E78.5 Low animal fat diet. [id number] MD Aminta Gregg (Adult Med) [address] [place] [address] 03918-948 0 09/26/2022 12:07:30 09/27/2022 12:36:11 Carcinoma of female breast 294199986 C50.919 Under the care of her oncologist . Dyslipidemia 850275495 E 78.5 Low animal fat diet, on lovastatin . Hyperlipidemia 27434076 E78.5 Low animal fat diet. Hypertensive disorder 38 533356 I10 On low salt diet, Avoid NSAID or OTC decongesta nt if possible, on losartan., Will continue to monitor blood pressure, this is first visit with this provider. As 09-26-22, BP is 142/72. will continue med and monitor blood pressure. Osteopenia 492295672 M85 .80 On calcium and Vitamin D. Type 2 miroslava betes mellitus 88054671 E11.9 Diabetic diet, on metformin, and januvia, has enough refills. Metformin and januvia. Dyslipidem ia due to type 2 diabetes mellitus 2044428638 02 E78.5 Low animal fat diet. avoid alcohol. tient already on lovastatin . [id number] [facility] [address] [place] [address] 37212-012 0 12/27/2022 11:48:16 12/28/2022 10:16:49 Primary malignant neoplasm of female breast 68401815 C50.919 since 2020, on chemo therapy, under the care of her oncologist . Postmenopa usal osteopenia 870342106 M85.80 Advised to be on calcium plus vitamin D, she agreed. T-score on hip was negative 2, [id number] [facility] [address] [place] [address] 95016-998 0 04/29/2023 12:02:32 05/01/2023 14:50:29 Osteopenia 859344147 M85.80 On calcium and Vitamin D. Mammograph ic mass of right breast 8723982509 3125331 R92.8 Will be in August 14. Follow up . Hypertensive disorder 38 245032 I10 On low salt diet, Avoid NSAID or OTC decongesta nt if possible, on losartan., Will continue to monitor blood pressure, this is first visit with this provider. As 09-26-22, BP is 142/72. will continue med and monitor blood pressure. . BP is 121/66 today 02-05-24. Hyperlipidemia 65799777 E78.5 Low animal fat diet. Dyslipidemia 843150179 E 78.5 Low animal fat diet, on lovastatin . Carcinoma of female breast 532108610 C50.919 Under the care of her oncologist . Type 2 miroslava betes mellitus 24421783 E11.9 Diabetic diet, on metformin, and januvia, has enough refills. Metformin and januvia. Dyslipidem ia due to type 2 diabetes mellitus 3328122144 02 E78.5 Low animal fat diet. avoid alcohol. tient already on lovastatin . [id number] MD Aminta Garza (Adult Med) [address] [place] [address] [phone] 0 07/30/2023 11:28:17 07/30/2023 12:51:23 Type 2 diabetes mellitus 95920322 E11.9 Essential hypertension 48908773 I10 Hyperlipidemia 43262623 E78.5 History of malignant neoplasm of breast 310182133 Z85.3 [id number] MD Aminta Garza (Adult Med) [address] [place] [address] 89840-178 0 01/08/2024 14:46:52 01/08/2024 16:08:53 Essential hypertension 94676880 I10 Type 2 miroslava betes mellitus 57089339 E11.9 Hyperlipidemia 89874430 E78.5 Serum crea tinine outside reference range 002150317 R79.89 Osteopenia 547437864 M85 .80 [id number] MD Aminta Garza (Adult Med) [address] [place] [address] 28140-269 0 04/15/2024 14:17:40 04/15/2024 15:03:25 Body mass index 25-29 - overweight 549201600 Z68.25 Overweight 483674395 E66 .3 Type 2 miroslava betes mellitus 93596597 E11.9 Dyslipidemia 920259495 E 78.5 Essential hypertension 06281946 I10 Chronic ki dney disease stage 3 836083314 N18.30 [id number] MD Aminta Garza (Adult Med) [address] [place] [address] 18829-756 0 08/18/2024 10:35:57 08/18/2024 11:34:16 Overweight in adulthood with body mass index of 25 or more but less than 30 572938300 E66.3 Z68.25 Essential hypertension 10304075 I10 Hyperlipidemia 36141829 E78.5 Type 2 miroslava betes mellitus 29098503 E11.9 Chronic ki dney disease stage 3 108275170 N18.30 Osteopenia 078956630 M85 .80 Dyslipidemia 566710554 E 78.5 Health Concerns Section Related Observation LastModified by Organization Detai ls LastModified Time None Recorded Concern Status LastModified by Organization Details LastModified Time None Recorded Advance Directives Directive N: Payers Insurance Date Sequence Insurance Name Policy Number Policy Dumont Covered Member ID Dumont Member ID Guarantor Name 09/14/2024 1 [facility] ON OR AFTER 09/22/20 (MEDICAID REPLACEMENT - HMO) Suzy Fontanez [id number] Suzy Fontanez 01/05/2018 PAYMENT PLAN Suzy Fontanez 04/16/2024 1 [facility] PRIOR TO 09/22/2020 (MEDICAID REPLACEMENT - HMO) Suzy Fontanez [id number] Suzy Fontanez 04/16/2024 1 [facility] (MEDICAID HMO) Suzy Fontanez [id number] Suzy Fontanez OBGyn Episode Ob Episode Information Episode Created Date Number of Fetuses Patient Bloodtype Patient rh Status Prepregnancy Weight lbs Domestic Partner Domestic Partner Phone Father Name Credentialing Manager Status 04/15/19 16 1 CLOSED Fetus Data First Name Last Name Admitted to NICU Weight (g) Sex Living Outcome Pediatric Complications Fetus ID Race Codes Race Delivery Type 3628.73 6 M Prematur e [id number] Michael Calculation Initial Michael Date Initial Exam [...] Complications Tubal Sterilization Discharge Date Comments 9 Regional-Ep idural 37 [place] Discharge Information Feeding Method Contraceptive Method Maternal HG B and HCT Levels Ob Episode Information Episode Created Date Number of Fetuses Patient Bloodtype Patient rh Status Prepregnancy Weight lbs Domestic Partner Domestic Partner Phone Father Name Credentialing Manager Status 04/15/19 16 1 CLOSED Fetus Data First Name Last Name Admitted to NICU Weight (g) Sex Living Outcome Pediatric Complications Fetus ID Race Codes Race Delivery Type 4110.67 75 F Full Term [id number] Michael Calculation Initial Michael Date Initial Exam [...]
--- OUTSIDE RECORDS SUMMARY | 2024-10-20 09:32 | XMS_ITS | Clinical Summary ---
Author Organization [facility] Cedrick [facility]ed[facility] Address [address] [place] [address] Care Team Providers Care Bell Cleaner Name Role Phone Hayden Alcazar MD Primary Care Provider [phone] Allergies No known active allergies Medications metFORMIN [...] sugar diagnostic (ONETOUCH ULTRA BLUE TEST STRIP [facility]) OneTouch Ultra Blue Test Strip Active fenofibrate (FENOGLIDE) 120 mg Tablet 120 mg by G Tube route daily. 3 Active dapagliflozin propanediol (FARXIGA ORAL) Take by mouth. Active anastrozole (ARIMIDEX) 1 mg tabletIndication s:Malignant neoplasm of upper-outer quadrant of right breast in female, estrogen receptor positive (CMS/HCC) Take 1 tablet by mouth once daily 90 Tablet 5 Active Active Problems Problem Noted Date Diagnosed Date Malignant neoplasm of upper- outer quadrant of right breast in female, estrogen receptor positive 08/24/2019 Encounters Date Type Department Care Team Description 10/07/2024 External Device Data ST[facility] ABSTRACTION Provider, Abstract 10/07/2024 External Device Data [facility] ABSTRACTION Provider, Abstract 09/09/2024 External Device Data [facility] ABSTRACTION Provider, Abstract 08/24/2024 Refill [facility] Oncology and Hematology [facility] [address] [place] [phone] Nik Castro MD Malignant neoplasm of upper-outer quadrant of right breast in female, estrogen receptor positive (CMS/HCC) 08/12/2024 External Device Data ST[facility] ABSTRACTION Provider, Abstract 08/11/2024 External Device Data [facility] ABSTRACTION Provider, Abstract [...] Comments Blood Pressure 137/86 05/21/2024 2:07 PM CENTERLESS GRINDER OPERATOR Pulse 80 05/21/2024 2:02 PM CENTERLESS GRINDER OPERATOR Temperature 36.2 C (97.2 F) 05/21/2024 2:02 PM CENTERLESS GRINDER OPERATOR Respiratory Rate 15 05/21/2024 2:02 PM CENTERLESS GRINDER OPERATOR Oxygen Saturation 95% 05/21/2024 2:02 PM CENTERLESS GRINDER OPERATOR Inhaled Oxygen Concentration - - Weight 58.2 kg (128 lb 6.4 oz) 05/21/2024 2:02 P M CENTERLESS GRINDER OPERATOR Height 152.4 cm (5') 01/23/2022 11:40 AM CDT Body Mass Index 25.08 01/23/2022 11:40 AM CDT Plan of Treatment Upcoming Encounters Date Type Department Care Team (Late st Contact Info) Description 12/07/2024 11:30 AM CDT Office Visit [facility] Oncology and Hematology [place] [address] [place] [address] Nik Castro MD [address] [facility] [address] [place] [address] Health Maintenance Due Date Last Done Comments DIABETES ANNUAL FOOT EXAM 1974 DIABETES ANNUAL RETINAL EXAM 1974 DIABETES HBA1C Q 6 MONTHS 1974 DIABETES MICROALBUMIN ANNUAL SCREEN 1974 LDL CHOLESTEROL ANNUAL 1974 DTAP/TDAP/TD VACCINES (1 - Tdap) 10/22/1975 PNEUMOCOCCAL VACCINE 50+ YEA RS (1 of 2 - PCV) 10/22/1975 COLORECTAL SCREENING 2001 Colorectal Cancer Screening 2001 FIT-DNA Q 3 years 2001 FIT/FOBT Q 1 year 2001 Flex Sig/CT Colonography Q 5 years 2001 ZOSTER VACCINE (1 of 2) 2006 RSV VACCINE (60+ or ) (1 - Risk 60-74 years 1-dose series) 2016 BREAST CANCER SCREENING 08/14/2024 08/15/19 24, 11/10/2020, 05/06/2020 INFLUENZA VACCINE (#1) 2024 OSTEOPOROSIS SCREENING 11/02/2027 11/01/2022, 2020 Procedures Procedure Name Priority Date/Time Associated Diagnosis Comments MAMMO SCREENING BILAT Routine 08/15/2023 9:03 AM CDT XR DEXA BONE DENSITY AXIAL 1 OR MORE SITES Routine 05/06/2020 Osteopenia of multiple sites from Last 3 Months or Most Recently Relevant to Health Maintenance Results * MAMMO SCREENING BILAT (08/15/2023 9:03 AM CDT) Anatomical Region Laterality Modality Breast Bilateral Mammography us Nik Castro MD MAMMO ORDERABLES Final Result * XR DEXA BONE DENSITY AXIAL 1 OR MORE SITES (05/06/2020) Anatomical Region Laterality Modality Other us Nik Castro MD DIAGNOSTIC IMAGING ORDERABLES F inal Result from Last 3 Months or Most Recently Relevant to Health Maintenance Insurance [facility] MEDICA[facility] Care Teams Bell Cleaner Relationship Specialty Start Date End Date Hayden Alcazar MD [address] [place] [address] PCP - General Internal Medicine 11/08/22
--- OUTSIDE RECORDS SUMMARY | 2024-10-20 09:32 | XMS_ITS | Clinical Summary ---
Author Organization [facility] Address [address] [place] [address] Care Team Providers Care Hardware Test Engineer Name Role Phone Unavailable Primary Care Provider Unavailabl e Source Comments [facility],non-owned Affiliates and Associated Physician Practices is amultiple site organization consisting of ambulatory clinics and hospital sitesin [place], [place], [place] and [place]. This disclosure is being madepursuant to the Care Everywhere program and may not contain all information available regarding this patient. Last updated 17.[facility] Social History Tobacco Use Types Packs/Day Years Used Date Smoking Tobacco: Never Assessed Comments Unknown Sex and Gender Information Value Date Recorded Sex Assigned at Not on file Legal Sex Female 5:29 AM SENIOR ACCOUNT MANAGER Gender Identity Not on file Sexual Orientation [...] VACCINE ( - 2023-2 5 season) 2023 DEPRESSION SCREENING 03/25/2024 INFLUENZA VACCINE (#1) 2024 Respiratory Syncytial Virus (RSV) Vaccine Pt: or [...] on patient's age to complete this topic Insurance
== END 2024-10-20 09:20 | disposition home or self-care (01) ==
PROVIDERS: PCP Internal Medicine; Visit Provider Internal Medicine Hematology & Oncology
DX: Z12.31 Encounter for screening mammogram for malignant neoplasm of breast (principal)
CPT/HCPCS: 36415; 77063; 77067; 80069; 82570; 84156

== ENCOUNTER 2024-10-20 10:03 | Outpatient (CLI) | payer OTHER, SELFPAY ==
--- OUTSIDE RECORDS SUMMARY | 2024-10-20 10:14 | XMS_ITS | Encounter Summary ---
Author Organization [facility] Address [address] [place] [address] Care Team Providers Care Veneer Taping Machine Offbearer Name Role Phone Hayden Alcazar MD Primary Care Provider [phone] Encounter Details Date Type Department Care Team (Late st Contact Info) Description 08/26/2019 Chart Note [facility] Radiation Therapy [address] [place] [phone] Alma Hernán[place] [address] [place] [address] Social History Tobacco Use Types [...] Description 12/07/2024 11:30 AM CDT Office Visit [facility] Oncology and Hematology - [place] [address] [facility] [address] [place] [address] Nik Castro MD [address] [place] [address] documented as of this encounter Visit Diagnoses Not on filedocumented in this encounter Care Teams Veneer Taping Machine Offbearer Relationship Specialty Start Date End Date Hayden Alcazar MD [address] [place] [address] PCP - General Internal Medicine 11/08/22 documented as of this encounter
--- OUTSIDE RECORDS SUMMARY | 2024-10-20 10:14 | XMS_ITS | Clinical Summary ---
Author Organization [facility] Address [address] [place] [address] Care Team Providers Care Toll Test Worker Name Role Phone Unavailable Primary Care Provider Unavailabl e Source Comments [facility],non-owned Affiliates and Associated Physician Practices is amultiple site organization consisting of ambulatory clinics and hospital sitesin [place], [place], [place] and [place]. This disclosure is being madepursuant to the Care Everywhere program and may not contain all information available regarding this patient. Last updated 17.[facility] Social History Tobacco Use Types Packs/Day Years Used Date Smoking Tobacco: Never Assessed Comments Unknown Sex and Gender Information Value Date Recorded Sex Assigned at Not on file Legal Sex Female 5:29 AM MAIL CALLER Gender Identity Not on file Sexual Orientation [...]
--- OUTSIDE RECORDS SUMMARY | 2024-10-20 10:14 | XMS_ITS | Clinical Summary ---
Author Organization [facility] Cedrick Toledobrendan Address [address] [place] [address] Care Team Providers Care Pastoral Assistant Name Role Phone Hayden Alcazar MD Primary Care Provider [phone] Allergies No known active allergies Medications metFORMIN [...] sugar diagnostic (ONETOUCH ULTRA BLUE TEST STRIP [facility]) OneTouch Ultra Blue Test Strip Active fenofibrate [...] Data STL ABSTRACTION Provider, Abstract 08/24/2024 Refill [facility] Oncology and Hematology [facility] [address] [place] [phone] Nik Castro MD Malignant neoplasm of upper-outer [...] Comments Blood Pressure 137/86 05/21/2024 2:07 PM BUSINESS ANALYST MANAGER Pulse 80 05/21/2024 2:02 PM BUSINESS ANALYST MANAGER Temperature 36.2 C (97.2 F) 05/21/2024 2:02 PM BUSINESS ANALYST MANAGER Respiratory Rate 15 05/21/2024 2:02 PM BUSINESS ANALYST MANAGER Oxygen Saturation 95% 05/21/2024 2:02 PM BUSINESS ANALYST MANAGER Inhaled Oxygen Concentration - - Weight 58.2 kg (128 lb 6.4 oz) 05/21/2024 2:02 P M BUSINESS ANALYST MANAGER Height 152.4 cm (5') 01/23/2022 11:40 AM CDT Body Mass Index 25.08 01/23/2022 11:40 AM CDT Plan of Treatment Upcoming Encounters Date Type Department Care Team (Late st Contact Info) Description 12/07/2024 11:30 AM CDT Office Visit [facility] Oncology and Hematology [place] [address] [place] [address] Nik Castro MD [address] [facility] [address] [place] [address] Health Maintenance Due Date Last Done [...] Most Recently Relevant to Health Maintenance Insurance [facility] MEDICAID Care Teams Pastoral Assistant Relationship Specialty Start Date End Date Hayden Alcazar MD [address] [place] [address] PCP - General Internal Medicine 11/08/22
[2024-10-20 11:34] LABS: Total Protein Urine Random 197 mg/dL; Ur Ttl Prot Creatinine Ratio 2.05 mg/mg (0-0.20)
[2024-10-20 11:42] LABS: Albumin Level 4.2 g/dL (3.5-5.1); Anion Gap 7 mmol/L (4-12); Blood Urea Nitrogen 40 mg/dL (7-17); Calcium 9.8 mg/dL (8.4-10.2); Carbon Dioxide 26 mmol/L (22-30); Chloride 104 mmol/L (98-107); Estimated Glomerular Filt Rate 28; Glucose 98 mg/dL (65-110); Potassium 4.4 mmol/L (3.4-5.0); Sodium 137 mmol/L (137-145)
== END 2024-10-20 10:04 | disposition home or self-care (01) ==
PROVIDERS: PCP Internal Medicine; Visit Provider Internal Medicine Nephrology
DX: E11.22 Type 2 diabetes mellitus with diabetic chronic kidney disease (principal); I12.9 Hypertensive chronic kidney disease with stage 1 through stage 4 chronic kidney disease, or unspecified chronic kidney disease; N18.32 Chronic kidney disease, stage 3b
CPT/HCPCS: 36415; 80069; 82570; 84156

== ENCOUNTER 2024-12-03 09:33 | Outpatient (CLI) | payer OTHER, SELFPAY ==
[2024-12-03 09:59] LABS: Hematocrit 42.3 % (37.0-47.0); Hemoglobin 13.8 g/dL (12.0-15.0); Immature Granulocyte Percent A 0.1 % (0-0.5); Lymphocytes Absolute Auto 1.79 K/mm3 (0.9-3.2); Mean Corpuscular HGB Conc 32.6 g/dl (32-36); Mean Corpuscular Hemoglobin 29.1 pg (26-34); Mean Corpuscular Volume 89.2 fl (80-100); Nucleated Red Blood Cells Absolute Auto 0.000 K/mm3 (0.0-0.012); Nucleated Red Blood Cells Perc 0.0 % (0.0-0.2); Platelet Count Result 284 k/mm3 (150-375); Red Blood Count 4.74 M/mm3 (4.2-5.4); White Blood Count 7.7 K/mm3 (4.5-10.0)
--- OUTSIDE RECORDS SUMMARY | 2024-12-03 10:15 | XMS_ITS | Clinical Summary ---
Author Organization [facility] Cedrick Toledobrendan Address [address] [address] Care Team Providers Care Senior Maintenance Technician Name Role Phone Hayden Alcazar MD Primary Care Provider [phone] Allergies No known active allergies Medications metFORMIN [...] sugar diagnostic (ONETOUCH ULTRA BLUE TEST STRIP [facility]) OneTouch Ultra Blue Test Strip Active fenofibrate [...] Encounters Date Type Department Care Team Description 11/24/2024 External Device Data STL ABSTRACTION Provider, Abstract 11/03/2024 External Device Data STL ABSTRACTION Provider, Abstract 10/20/2024 Orders Only [facility] Oncology and Hematology [facility] [address] [place] [address] Nik Castro MD 10/07/2024 External Device Data STL ABSTRACTION Provider, [...] Comments Blood Pressure 137/86 05/21/2024 2:07 PM FURNITURE CLEANER Pulse 80 05/21/2024 2:02 PM FURNITURE CLEANER Temperature 36.2 C (97.2 F) 05/21/2024 2:02 PM FURNITURE CLEANER Respiratory Rate 15 05/21/2024 2:02 PM FURNITURE CLEANER Oxygen Saturation 95% 05/21/2024 2:02 PM FURNITURE CLEANER Inhaled Oxygen Concentration - - Weight 58.2 kg (128 lb 6.4 oz) 05/21/2024 2:02 P M FURNITURE CLEANER Height 152.4 cm (5') 01/23/2022 11:40 AM CDT Body Mass Index 25.08 01/23/2022 11:40 AM CDT Plan of Treatment Upcoming Encounters Date Type Department Care Team (Late st Contact Info) Description 12/07/2024 11:30 AM CDT Office Visit [facility] Oncology and Hematology [place] [address] [place] [address] Nik Castro MD [address] [place] [address] [address] [place] [address] Health Maintenance Due Date Last [...] years 1-dose series) 2016 INFLUENZA VACCINE (#1) 2024 BREAST CANCER SCREENING 10/20/2025 10/21/19 25, 08/15/2023, 11/10/2020, Additional history exists OSTEOPOROSIS SCREENING 11/02/2027 11/01/2022, 2020 Procedures Procedure Name Priority Date/Time Associated Diagnosis Comments MAMMO SCREENING BILAT Routine 10/20/2024 11:17 AM CDT XR DEXA BONE DENSITY AXIAL 1 OR MORE SITES Routine 05/06/2020 Osteopenia of multiple sites from Last 3 Months or Most Recently Relevant to Health Maintenance Results * MAMMO SCREENING BILAT (10/20/2024 11:17 AM CDT) Anatomical Region Laterality Modality Breast Bilateral Mammography us Nik Castro MD MAMMO ORDERABLES Final Result * XR DEXA BONE DENSITY AXIAL 1 OR MORE SITES (05/06/2020) Anatomical Region Laterality Modality Other us Nik Castro MD DIAGNOSTIC IMAGING ORDERABLES F inal Result from Last 3 Months or Most Recently Relevant to Health Maintenance Insurance [employer] MEDICAID Care Teams Senior Maintenance Technician Relationship Specialty Start Date End Date Hayden Alcazar MD [address] [place] [address] PCP - General Internal Medicine 11/08/22
--- OUTSIDE RECORDS SUMMARY | 2024-12-03 10:15 | XMS_ITS | Encounter Summary ---
Author Organization [facility] Address [address] [place] [address] Care Team Providers Care Crab Fisher Name Role Phone Hayden Alcazar MD Primary Care Provider [phone] Encounter Details Date Type Department Care Team (Late st Contact Info) Description 08/26/2019 Chart Note [facility] Radiation Therapy [address] [place] [phone] Alma Hernán[place] [address] [place] [address] Social History Tobacco Use Types [...] Description 12/07/2024 11:30 AM CDT Office Visit [facility] Oncology and Hematology - [place] [address] [facility] [address] [place] [address] Nik Castro MD [address] [facility] [address] [place] [address] documented as of this encounter Visit Diagnoses Not on filedocumented in this encounter Care Teams Crab Fisher Relationship Specialty Start Date End Date Hayden Alcazar MD [address] [place] [address] PCP - General Internal Medicine 11/08/22 documented as of this encounter
[2024-12-03 10:31] LABS: Alanine Aminotransferase 20 U/L (6-35); Albumin Level 4.3 g/dL (3.5-5.1); Alkaline Phosphatase 62 U/L (38-126); Anion Gap 10 mmol/L (4-12); Aspartate Amino Transferase 24 U/L (14-36); Bilirubin,Total 0.3 mg/dL (0.2-1.3); Blood Urea Nitrogen 47 mg/dL (7-17); Calcium 9.7 mg/dL (8.4-10.2); Carbon Dioxide 29 mmol/L (22-30); Chloride 100 mmol/L (98-107); Estimated Glomerular Filt Rate 22; Glucose 72 mg/dL (65-110); Potassium 4.7 mmol/L (3.4-5.0); Sodium 139 mmol/L (137-145); Total Protein 8.2 g/dL (6.3-8.2)
== END 2024-12-03 09:34 | disposition home or self-care (01) ==
LOC: ANHLAB 09:34
PROVIDERS: PCP Internal Medicine; Visit Provider Internal Medicine Hematology & Oncology
DX: C50.411 Malignant neoplasm of upper-outer quadrant of right female breast (principal); Z17.0 Estrogen receptor positive status [ER+]
CPT/HCPCS: 36415; 80053; 85025; 86300

== ENCOUNTER 2025-02-15 08:49 | Outpatient (CLI) | payer OTHER, SELFPAY ==
--- OUTSIDE RECORDS SUMMARY | 2025-02-15 09:27 | XMS_ITS | Clinical Summary ---
Author Organization [facility] Address [address] [place] [address] Care Team Providers Care Warehouse Foreman Name Role Phone Unavailable Primary Care Provider Unavailabl e Source Comments [facility],non-owned Affiliates and Associated Physician Practices is amultiple site organization consisting of ambulatory clinics and hospital sitesin [place], [place], [place] and [place]. This disclosure is being madepursuant to the Care Everywhere program and may not contain all information available regarding this patient. Last updated 17.[facility] Social History Tobacco Use Types Packs/Day Years Used Date Smoking Tobacco: Never Assessed Comments Unknown Sex and Gender Information Value Date Recorded Sex Assigned at Not on file Legal Sex Female 5:29 AM LINING BRUSHER Gender Identity Not on file Sexual Orientation [...] 2006 ZOSTER VACCINE (1 of 2) 2006 DEPRESSION SCREENING 03/25/2024 COVID-19 VACCINE (1 - 2024-2 6 season) 2024 INFLUENZA VACCINE (#1) 2024 Respiratory Syncytial Virus [...]
--- OUTSIDE RECORDS SUMMARY | 2025-02-15 09:27 | XMS_ITS | Encounter Summary ---
Author Organization [facility] Address [address] [place] [address] Care Team Providers Care Sas Programmer Name Role Phone Hayden Alcazar MD Primary Care Provider Encounter Details Date Type Department Care Team (Late st Contact Info) Description 08/26/2019 Chart Note [facility] Radiation Therapy [address] [place] [address] Alma Hernández [place] [address] [place] [address] Social History Tobacco Use Types [...] Encounters Date Type Department Care Team (Late Contact Info) Description 06/09/2025 11:30 AM CDT Office Visit [facility] Oncology and Hematology - [place] [address] [facility] [address] [place] [address] Nik Castro MD [address] [facility] [address] [place] [address] documented as of this encounter Visit Diagnoses Not on filedocumented in this encounter Care Teams Sas Programmer Relationship Specialty Start Date End Date Hayden Alcazar MD [address] [place] [address] PCP - General Internal Medicine 11/08/22 documented as of this encounter
--- OUTSIDE RECORDS SUMMARY | 2025-02-15 09:27 | XMS_ITS | Clinical Summary ---
Author Organization [facility] Address [address] [place] [address] Care Team Providers Care Rug Renovator Name Role Phone Hayden Alcazar MD Primary Care Provider [phone] Allergies No known active allergies Medications metFORMIN [...] sugar diagnostic (ONETOUCH ULTRA BLUE TEST STRIP [facility]) OneTouch Ultra Blue Test Strip Active fenofibrate (FENOGLIDE) 120 mg Tablet 120 mg by G Tube route daily. 3 Active dapagliflozin propanediol (FARXIGA ORAL) Take by mouth. Active tamoxifen (NOLVADEX) 20 mg tablet Take 1 Tablet (20 mg) by mouth daily. 90 Tablet 2 5 Active Active Problems Problem Noted Date Diagnosed Date Malignant neoplasm of upper- outer quadrant of right breast in female, estrogen receptor positive 08/24/2019 Encounters Date Type Department Care Team Description 02/09/2025 External Device Data STL ABSTRACTION Provider, Abstract 12/08/2024 External Device Data STL ABSTRACTION Provider, Abstract 12/07/2024 11:30 AM CDT Office Visit [facility] Oncology and Hematology - [place] [address] [place] [address] Nik Castro MD Osteopenia of multiple sites (Primary Dx) 12/07/2024 Orders Only [facility] Oncology and Hematology - [place] [address] [place] [address] Nik Castro MD 12/04/2024 Orders Only [facility] Oncology and Hematology - [place] [address] [place] [address] Nik Castro MD 11/24/2024 External Device Data STL ABSTRACTION Provider, [...] Sign Reading Time Taken Comments Blood Pressure 199/100 12/07/2024 11:01 AM CDT Pulse 79 12/07/2024 10:59 AM CDT Temperature 36.7 C (98 F) 12/07/2024 10:59 AM CDT Respiratory Rate 16 12/07/2024 10:59 AM CDT Oxygen Saturation 96% 12/07/2024 10:59 AM CDT Inhaled Oxygen Concentration - - Weight 55.8 kg (123 lb) 12/07/2024 10:59 AM CDT Height 152.4 cm (5') 01/23/2022 11:40 AM CDT Body Mass Index 24.02 01/23/2022 11:40 AM CDT Plan of Treatment Upcoming Encounters Date Type Department Care Team (Late st Contact Info) Description 06/09/2025 11:30 AM CDT Office Visit [facility] Oncology and Hematology - [place] [address] [place] [address] Nik Castro MD [address] [facility] [address] [place] [address] Health Maintenance Due Date Last Done Comments DIABETES ANNUAL FOOT EXAM 1974 DIABETES ANNUAL RETINAL EXAM 1974 DIABETES MICROALBUMIN ANNUAL SCREEN 1974 LDL CHOLESTEROL ANNUAL 1974 DTAP/TDAP/TD VACCINES (1 - Tdap) 10/22/1975 PNEUMOCOCCAL VACCINE 50+ YEA RS (1 of 2 - PCV) 10/22/1975 COLORECTAL SCREENING 2001 Colorectal Cancer Screening 2001 FIT-DNA Q 3 years 2001 FIT/FOBT Q 1 year 2001 Flex Sig/CT Colonography Q 5 years 2001 RSV VACCINE (60+ or ) (1 - Risk 50-74 years 1-dose series) 2006 ZOSTER VACCINE (1 of 2) 2006 INFLUENZA VACCINE (#1) 2024 COVID-19 Vaccine (3 - 2024-2 6 season) 2024 12/27/2020, 11/29/2020 DIABETES HBA1C Q 6 MONTHS 05/31/2025 12/01/2024 BREAST CANCER SCREENING 10/20/2025 10/21/19 25, 08/15/2023, 11/10/2020, Additional history exists OSTEOPOROSIS SCREENING 11/02/2027 11/01/2022, 2020 Procedures Procedure Name Priority Date/Time Associated Diagnosis Comments CHG CA 15 3 Routine 12/03/2024 12:39 PM CDT COMPREHENSIVE METABOLIC PANEL Routine 12/03/2024 10:22 AM CDT MAMMO SCREENING BILAT Routine 10/20/2024 11:17 AM CDT XR DEXA BONE DENSITY AXIAL 1 OR MORE SITES Routine 05/06/2020 Osteopenia of multiple sites from Last 3 Months or Most Recently Relevant to Health Maintenance Results * CHG CA 15 3 (12/03/2024 12:39 PM CDT) us Nik Castro MD [facility]G - LABORATORY Final Result * COMPREHENSIVE METABOLIC PANEL (12/03/2024 10:22 AM CDT) Blood us Nik Castro MD CHEMISTRY ORDERABLES Final Resu lt * MAMMO SCREENING BILAT (10/20/2024 11:17 AM CDT) Anatomical Region Laterality Modality Breast Bilateral Mammography us Nik Castro MD MAMMO ORDERABLES Final Result * XR DEXA BONE DENSITY AXIAL 1 OR MORE SITES (05/06/2020) Anatomical Region Laterality Modality Other us Nik Castro MD DIAGNOSTIC IMAGING ORDERABLES F inal Result from Last 3 Months or Most Recently Relevant to Health Maintenance Insurance [facility] MEDICAID Care Teams Rug Renovator Relationship Specialty Start Date End Date Hayden Alcazar MD [address] [place] [address] PCP - General Internal Medicine 11/08/22
[2025-02-15 11:25] LABS: Albumin Level 3.8 g/dL (3.5-5.1); Anion Gap 7 mmol/L (4-12); Blood Urea Nitrogen 61 mg/dL (7-17); Calcium 8.7 mg/dL (8.4-10.2); Carbon Dioxide 25 mmol/L (22-30); Chloride 106 mmol/L (98-107); Estimated Glomerular Filt Rate 21; Glucose 124 mg/dL (65-110); Potassium 4.5 mmol/L (3.4-5.0); Sodium 138 mmol/L (137-145)
[2025-02-15 11:36] LABS: Parathyroid Intact 41.2 pg/mL (14.5-75.2)
[2025-02-15 11:55] LABS: Total Protein Urine Random 143 mg/dL; Ur Ttl Prot Creatinine Ratio 1.49 mg/mg (0-0.20)
== END 2025-02-15 08:50 | disposition home or self-care (01) ==
LOC: ANHLAB 08:51
PROVIDERS: PCP Internal Medicine; Visit Provider Internal Medicine Nephrology
DX: E11.22 Type 2 diabetes mellitus with diabetic chronic kidney disease (principal); I12.9 Hypertensive chronic kidney disease with stage 1 through stage 4 chronic kidney disease, or unspecified chronic kidney disease; N18.4 Chronic kidney disease, stage 4 (severe); N25.81 Secondary hyperparathyroidism of renal origin; E55.9 Vitamin D deficiency, unspecified
CPT/HCPCS: 36415; 80069; 82306; 82570; 83970; 84156